=== PATIENT | male | born 1950 | race Caucasian/White ===

== ENCOUNTER 2016-10-06 10:27 | Emergency (ER) | payer MEDICARE, OTHER ==
[2016-10-06 10:38] VITALS: O2SAT 98
[2016-10-06] MEDS ORDERED: TORAdol 30 mg Injection IM ONE (10:48)
[2016-10-06] MEDS ORDERED: TORAdol 30 mg Injection ONE (10:51)
--- NOTE | 2016-10-06 10:53 | ERPHSYRPT ---
- History of Present Illness Time Seen by Provider: 10/06/16 10:49 Source: patient Exam Limitations: no limitations Patient Subjective Stated Complaint: fall at 1600 yesterday Triage Nursing Assessment: fell yesterday at 1600 and landed on rt shoulder on a log. has had bilat shoulder surgery in past. guarded movement to rt shoulder. no bruising noted. radial pulse present. limited rom but states has limited rom normally. increased pain with rom noted Physician History: 66 y/o male with history of rotator cuff surgery comes to the ER after falling and landing on a log on his right shoulder last night. Pt describes the pain as sharp, constant, 9/10, worse with movement and not relieved by hydrocodone. Pt denies any other injury to head, neck or any lost of consciousness. Occurred: yesterday Method of Injury: fell Quality: constant Severity of Pain-Max: severe Severity of Pain-Current: severe Extremities Pain Location: shoulder: right Modifying Factors: Improves With: movement Associated Symptoms: none Allergies/Adverse Reactions: No Known Drug Allergies Allergy (Verified 10/06/16 10:38) Home Medications: Alprazolam 2 mg PO HS 10/06/16 [History] Atorvastatin Calcium 20 mg PO HS 10/06/16 [History] Hydrocodone Bit/Acetaminophen [Hydrocodon-Acetaminophn 10-325] 1 each PO QID [History] Metformin HCl [Glucophage] 1,000 mg PO HS 10/06/16 [History] Metoprolol Tartrate 50 mg PO HS 10/06/16 [History] Omeprazole 20 mg PO HS 10/06/16 [History] Pioglitazone HCl [Actos] 15 mg PO HS 10/06/16 [History] Ranitidine HCl [Zantac] 300 mg PO HS 10/06/16 [History] Tamsulosin HCl 0.4 mg [Flomax 0.4 MG] 0.4 mg PO HS 10/06/16 [History] Hx Tetanus, Diphtheria Vaccination/Date Given: Yes Hx Influenza Vaccination/Date Given: Yes Hx Pneumococcal Vaccination/Date Given: No Immunizations Up to Date: Yes - Review of Systems Constitutional: No Fever, No Chills Eyes: No Symptoms Ears, Nose, & Throat: No Symptoms Respiratory: No Cough, No Dyspnea Cardiac: No Chest Pain, No Edema, No Syncope Abdominal/Gastrointestinal: No Abdominal Pain, No Nausea, No Vomiting, No Diarrhea Genitourinary Symptoms: No Dysuria Musculoskeletal: Arthralgias, Fall, Joint Pain, No Back Pain, No Neck Pain Skin: No Rash Neurological: No Dizziness, No Focal Weakness, No Sensory Changes Psychological: No Symptoms Endocrine: No Symptoms All Other Systems: Reviewed and Negative - Past Medical History Pertinent Past Medical History: Yes Neurological History: Peripheral Neuropathy Cardiac History: Other Respiratory History: No Pertinent History Endocrine Medical History: Diabetes Type II, Other Musculoskeletal History: Other Psycho-Social History: Anxiety Other Medical History: HEPATITIS C - CONTROLLED; HEART CATH; HEART; VIRUS HX; BILATERAL RTC REPAIR; 1ST MTP REPLACEMENT W/ 3 SUGERIES; LS-PINE FUSION; R KNEE ARTHROSCOPY. - Past Surgical History Past Surgical History: Yes Musculoskeletal: Orthopedic Surgery Other Surgical History: BILATERAL ROTOR CUFF, BACK, RIGHT FOOT, ANKLE - Social History Smoking Status: Never smoker Exposure to second hand smoke: No Drug Use: none Patient Lives Alone: Yes - Nursing Vital Signs Nursing Vital Signs: Initial Vital Signs Temperature 97.5 F 10/06/16 10:33 Pulse Rate 84 10/06/16 10:33 Respiratory Rate 18 10/06/16 10:33 Blood Pressure 153/80 10/06/16 10:33 O2 Sat by Pulse Oximetry 98 10/06/16 10:33 Pain Scale Pain Intensity 9 - Physical Exam General Appearance: mild distress, alert Eyes, Ears, Nose, Throat Exam: moist mucous membranes Neck Exam: non-tender, supple Cardiovascular/Respiratory Exam: chest non-tender, normal breath sounds, regular rate/rhythm, no respiratory distress Abdominal Exam: non-tender, No guarding Back Exam: normal inspection, No vertebral tenderness Shoulder Exam: bone tenderness, limited ROM, pain Elbow/Forearm Exam: normal inspection, non-tender, no evidence of injury Wrist Exam: normal inspection, non-tender, no evidence of injury Hand Exam: normal inspection, non-tender, no evidence of injury Neuro/Tendon Exam: normal sensation, normal motor functions Mental Status Exam: alert, oriented x 3, cooperative Skin Exam: normal color, warm, dry SpO2 Interpretation: normal SpO2: 98 Oxygen Delivery: Room Air - Course Nursing assessment & vital signs reviewed: Yes Ordered Tests: Active Orders 24 hr Category Date Time Status Sling Application STAT Care 10/06/16 11:19 Active SHOULDER Stat Exams 10/06/16 10:48 Completed Medication Summary Discontinued Medications Generic Name Dose Route Start Last Admin Trade Name Jaiden PRN Reason Stop Dose Admin Ketorolac Tromethamine 60 mg 10/06/16 10:48 10/06/16 10:54 Toradol 30 Mg Injection IM 10/06/16 10:49 60 mg STAT ONE Administration Ketorolac Tromethamine Confirm 10/06/16 10:51 Toradol 30 Mg Injection Administered 10/06/16 10:52 Dose 60 mg .ROUTE .STK-MED ONE - Progress Progress: improved Progress Note: 10/06/16 11:22 Pt feels better after receiving toradol 60mg IM X 1 dose. The shoulder x ray does not show any acute fracture or dislocation. Pt will be placed in a sling, will be given a script for toradol and will F/U with orthopedics, Dr Pedro. - Departure Time of Disposition: 11:24 Departure Disposition: Home Clinical Impression: Shoulder strain Qualifiers: Encounter type: initial encounter Laterality: right Qualified Code(s): S46.911A - Strain of unspecified muscle, fascia and tendon at shoulder and upper arm level, right arm, initial encounter Condition: Stable Critical Care Time: No Referrals: ANGELLA LICEA [Primary Care Provider] - BRYON PEDRO [ACTIVE STAFF] - Instructions: Shoulder Sprain Additional Instructions: Follow up with Dr Pedro by next week if you should continue to have shoulder pain. Prescriptions: Ketorolac Tromethamine [Toradol] 10 mg PO Q6HPRN PRN #20 tablet PRN Reason: Pain
--- NOTE | 2016-10-06 11:19 | XRAY ---
Indication: Pain following fall. Comparison: July 29, 2013. 3 views of the right shoulder again demonstrates minimal spurring of the distal clavicle inferiorly. No new/acute bony, articular, or soft tissue abnormalities.
[2016-10-06 11:44] VITALS: BP 130/78; PULSE 80
== END 2016-10-06 11:45 | disposition home or self-care (01) ==
LOC: ED 10:27
DX: S46.911A Strain of unspecified muscle, fascia and tendon at shoulder and upper arm level, right arm, initial encounter (principal); W01.198A Fall on same level from slipping, tripping and stumbling with subsequent striking against other object, initial encounter; M25.511 Pain in right shoulder; E11.9 Type 2 diabetes mellitus without complications; Z79.84 Long term (current) use of oral hypoglycemic drugs; Z79.899 Other long term (current) drug therapy
CPT/HCPCS: 73030; 96372; 99283; 99284; J1885

== ENCOUNTER 2017-01-01 08:34 | Day surgery (SDC) | payer MEDICARE, OTHER ==
--- NOTE | 2016-12-30 15:49 | HP ---
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 Last upper endoscopy ten years ago. He denies any dysphagia currently. He had some intermittent epigastric pain. He is taking some acid blockers. He does have family history of cancer of the stomach in his mother. He is in need of follow up upper endoscopy given history of Pak's in the past. PAST MEDICAL HISTORY: Diabetes, benign prostatic hypertrophy and melanoma in the past. PAST SURGICAL HISTORY: Right foot big toe surgery. Left and right rotator cuff surgery. Right knee surgery. Back surgery in the past. Upper endoscopy ten years ago. MEDICATIONS: Alprazolam, aspirin, Atorvastatin, chlorouracil topical cream, Glyburide, hydrocodone, lisinopril, metformin, Metoprolol, mupirocin ointment, omeprazole, pioglitazone tablets, Polymyxin B eye drops, ranitidine, Tamsulosin, triamcinolone cream, Voltaren gel. ALLERGIES: NKDA. FAMILY HISTORY: Lung cancer in his father. Mother had stomach cancer. Brother had heart disease. SOCIAL HISTORY: No smoking or alcohol abuse. REVIEW OF SYSTEMS: Twelve systems reviewed per admission assessment. No chest pain or palpitations other systems negative or noncontributory as above and per preadmission questionnaire. PHYSICAL EXAMINATION: GENERAL: No acute distress. HEENT: Sclerae nonicteric. NECK: No JVD. CHEST: Equal excursion, nonlabored breathing. CVS: Regular rate and rhythm. ABDOMEN: Soft. No peritoneal signs. EXTREMITIES: No significant edema. NEURO: Alert, moving extremities symmetrically. No gross motor deficits noted. IMPRESSION: History of Pak's, some intermittent epigastric pain or discomfort in need of follow up upper endoscopy for further evaluation. His last one was ten years ago according to the patient. Risks and benefits explained in detail including but not limited to bleeding or infection, small risk of bowel injury or perforation possibly requiring open procedure, small risk of missed or nondiagnosis or incomplete exam possibly requiring barium swallow, other studies or procedures, general risk of anesthesia or sedation, risk of missed or nondiagnosis. He understands and agrees to the planned procedure and will proceed with outpatient upper endoscopy possible biopsy as an outpatient.
[~2017-01-01 08:34] MED LIST: Lactated Ringers 1,000 ML IV SCH
[2017-01-01] MEDS ORDERED: DIPRIVAN 200 MG/20 ML IV ONE (08:35)
[2017-01-01] MEDS ORDERED: Ketamine HCl 50 MG/ML IV ONE (08:35)
[2017-01-01] MEDS ORDERED: Lactated Ringers 1,000 ML IV ONE (09:39)
[2017-01-01 13:36] VITALS: BP 122/76; PULSE 64; O2SAT 98
--- NOTE | 2017-01-02 09:23 | OP ---
SURGERY DATE/TIME: 01/01/2017 1028 PREOPERATIVE DIAGNOSES: 1) History of Pak's. 2) Epigastric pain. POSTOPERATIVE DIAGNOSES: 1) Very small hiatal hernia. 2) Mild gastritis. 3) Short segment distal gastroesophagitis versus Pak's esophagus path pending. PROCEDURES: 1) EGD with cold biopsy of antrum to evaluate for Helicobacter pylori. 2) Cold biopsy of distal esophagus to evaluate for Pak's. SURGEON: Dr. Jonatan Draper. ANESTHESIA: MAC. ESTIMATED BLOOD LOSS: Minimal. INDICATIONS: As noted above. Risks and benefits explained in detail and not limited to and consent obtained. DESCRIPTION OF PROCEDURE AND FINDINGS: The patient is taken to the endoscopy room. MAC anesthesia introduced. After official time out and no disagreement with planned procedure, a bite block positioned. Video gastroscope easily passed down the esophagus through the patent pylorus to the junction of the second and third portion of the duodenum. On withdrawal of the scope the duodenum, duodenal bulb grossly unremarkable. Back in the stomach he had some mild gastritis. No evidence of any ulcers or masses. A cold biopsy taken to evaluate for Helicobacter pylori. Good hemostasis noted. On retroflex there was a very small slight hiatal hernia on retroflex otherwise no signs of any large polyps, masses or obstructing lesions. The scope pulled back. The gastroesophageal junction noted to be about 35 cm. There was a short segment of 1 to 1.5 cm of a couple of fingerlets of patchy that seemed to be Pak's esophagus versus epigastric esophagitis. Cold biopsy taken 1 cm apart of these two different fingerlets up through the salmon pink mucosal area. Good hemostasis was noted. The remainder of the esophagus grossly unremarkable. A few tertiary contractions but no signs of any obvious masses or other mucosal lesions. The scope is withdrawn. The patient tolerated the procedure well. Findings discussed with the family out in the waiting area.
== END 2017-01-01 12:05 | disposition home or self-care (01) ==
LOC: SDC 08:34
PROVIDERS: ATTEND Surgery
PROC: 0DB38ZX Excision of Lower Esophagus, Via Natural or Artificial Opening Endoscopic, Diagnostic (ICD-10-PCS; principal; 2017-01-01)
PROC: 0DB78ZX Excision of Stomach, Pylorus, Via Natural or Artificial Opening Endoscopic, Diagnostic (ICD-10-PCS; 2017-01-01)
DX: K44.9 Diaphragmatic hernia without obstruction or gangrene (principal); K29.70 Gastritis, unspecified, without bleeding; K20.9 Esophagitis, unspecified; E11.9 Type 2 diabetes mellitus without complications; Z79.4 Long term (current) use of insulin; N40.0 Benign prostatic hyperplasia without lower urinary tract symptoms; Z85.820 Personal history of malignant melanoma of skin; Z80.0 Family history of malignant neoplasm of digestive organs; Z79.899 Other long term (current) drug therapy
CPT/HCPCS: 00740; 36415; 82962; 88305; J2704

== ENCOUNTER 2017-05-20 15:35 | Emergency (ER) | payer MEDICARE, OTHER ==
[2017-05-20] MEDS ORDERED: Lactated Ringers 1,000 ML IV ONE ×2 (16:02→16:10)
[2017-05-20] MEDS ORDERED: Adacel Vial IM ONE ×2 (16:03→16:09)
[2017-05-20] MEDS ORDERED: BACIGUENT PACKET TP ONE (16:03)
[2017-05-20] MEDS ORDERED: BACIGUENT PACKET ONE (16:10)
--- NOTE | 2017-05-20 16:12 | ERPHSYRPT ---
- History of Present Illness Time Seen by Provider: 05/20/17 15:54 Source: patient, family (son-in-law) Physician History: CC: high blood sugar Hx: 66 y/o patient of Dr Licea. He had foot surgery with cadaver bone graft in right great toe per Dr Cruz this week Sun. He is home. He has polyuria. He has been going to the bathroom frequently. He fell 3 times. Today he struck his head and has a scratch to the head as well as some neck pain. Sugar was over 500 and has not been less than 200 since his surgery. He is on lantus, formerly on Janumet. HE is taking half vicodin and xanax every 6 hours. No known fever but no thermometer. No vomiting or diarrhea. No chest pain or cough. Occasional dysuria. Allergies/Adverse Reactions: morphine Adverse Reaction (Severe, Verified 05/20/17 16:32) Home Medications: Alprazolam 2 mg PO TID 10/06/16 [History] Atorvastatin Calcium 20 mg PO HS 10/06/16 [History] Hydrocodone Bit/Acetaminophen [Hydrocodon-Acetaminophn 10-325] 1 each PO QID [History] Metoprolol Tartrate 50 mg PO HS 10/06/16 [History] Omeprazole 20 mg PO HS 10/06/16 [History] Pioglitazone HCl [Actos] 15 mg PO HS 10/06/16 [History] Ranitidine HCl [Zantac] 300 mg PO HS 10/06/16 [History] Tamsulosin HCl 0.4 mg [Flomax 0.4 MG] 0.4 mg PO HS 10/06/16 [History] Insulin Glargine [Lantus Insulin] 15 unit SQ DAILY 05/20/17 [History] Hx Tetanus, Diphtheria Vaccination/Date Given: Yes Hx Influenza Vaccination/Date Given: Yes Hx Pneumococcal Vaccination/Date Given: No - Review of Systems Constitutional: Fatigue, Malaise, Weakness, No Fever, No Chills Eyes: No Symptoms Ears, Nose, & Throat: No Symptoms Respiratory: No Cough, No Dyspnea Cardiac: No Chest Pain, No Syncope Abdominal/Gastrointestinal: No Abdominal Pain, No Nausea, No Vomiting, No Diarrhea Genitourinary Symptoms: Dysuria, Frequency, Hesitancy Musculoskeletal: Neck Pain, Fall (X3), No Back Pain Skin: No Rash Neurological: No Headache All Other Systems: Reviewed and Negative - Past Medical History Pertinent Past Medical History: Yes Neurological History: Peripheral Neuropathy ENT History: No Pertinent History Cardiac History: Other Respiratory History: No Pertinent History Endocrine Medical History: Diabetes Type II, Other Musculoskeletal History: Other GI Medical History: GERD History: No Pertinent History Psycho-Social History: Anxiety Male Reproductive Disorders: Prostate Problems Other Medical History: HEPATITIS C - CONTROLLED; HEART CATH; HEART; VIRUS HX; BILATERAL RTC REPAIR; 1ST MTP REPLACEMENT W/ 3 SUGERIES; LS-PINE FUSION; R KNEE ARTHROSCOPY. - Past Surgical History Past Surgical History: Yes Neuro Surgical History: No Pertinent History Cardiac: No Pertinent History Respiratory: No Pertinent History Gastrointestinal: No Pertinent History Genitourinary: No Pertinent History Musculoskeletal: Orthopedic Surgery Male Surgical History: No Pertinent History Other Surgical History: BILATERAL ROTOR CUFF, BACK, RIGHT FOOT, ANKLE - Social History Smoking Status: Never smoker Exposure to second hand smoke: No Drug Use: none Patient Lives Alone: Yes - Nursing Vital Signs Nursing Vital Signs: Initial Vital Signs Temperature 97.8 F 05/20/17 16:00 Pulse Rate 66 05/20/17 16:00 Respiratory Rate 14 05/20/17 16:00 Blood Pressure 108/86 05/20/17 16:00 O2 Sat by Pulse Oximetry 96 05/20/17 16:00 Pain Scale Pain Intensity 1 - Physical Exam General Appearance: alert Eye Exam: PERRL/EOMI, No scleral icterus Ears, Nose, Throat Exam: normal ENT inspection, dry mucous membranes Neck Exam: normal inspection, midline tenderness Respiratory Exam: crackles/rales (bases) Cardiovascular Exam: regular rate/rhythm Gastrointestinal/Abdomen Exam: soft, No tenderness, No distention Male Genitalia Exam: normal genitalia Back Exam: normal inspection, No vertebral tenderness Extremity Exam: other (dressing right foot with cryocuff. Ends of toes pink, no swelling or redness.) Neurologic Exam: alert, oriented x 3, cooperative, sensation nml, No motor deficits Skin Exam: warm, dry, No rash Procedures - Additional Procedures Progress: Limited transabdominal sono per ERMD for bladder volume. 235 ml urine in bladder. He promptly voided 100ml of that. No significant urine retention. There is pedunculated right sided hyperechoic lesion off bladder wall consistent with mass or polyp. Pt and family advised to have urology follow up for further investigation. - Course Nursing assessment & vital signs reviewed: Yes EKG Interpreted by Me: RATE (56), Sinus Krishan, NORMAL AXIS, NORMAL INTERVALS ( QTc 404), NORMAL QRS, NORMAL ST-T - CT Exams brain CT Interpretation: Negative, Tele-radiologist Report cervical CT Interpretation: Tele-radiologist Report, DJD, No Fracture, No Subluxation Ordered Tests: Active Orders 24 hr Category Date Time Status ACCUCHECK [Accucheck] STAT Care 05/20/17 18:21 Active Cervical Collar Application STAT Care 05/20/17 16:06 Active Clean Catch Urine Specimen STAT Care 05/20/17 16:02 Active EKG-ER Only STAT Care 05/20/17 16:02 Active IV Insertion STAT Care 05/20/17 16:02 Active Wound Care STAT Care 05/20/17 16:03 Active CERVICAL SPINE WO CONTRAST [CT] Stat Exams 05/20/17 16:01 Taken CHEST 1 VIEW (PORTABLE) Stat Exams 05/20/17 16:02 Taken HEAD WITHOUT CONTRAST [CT] Stat Exams 05/20/17 16:01 Taken CBC W DIFF Stat Lab 05/20/17 16:10 Completed CMP Stat Lab 05/20/17 16:10 Completed Glucose,Critical Care Urgent Lab 05/20/17 16:03 Completed Lactic Acid Stat Lab 05/20/17 16:02 Completed UA W/RFX UR CULTURE Stat Lab 05/20/17 17:14 Completed VENOUS BLOOD GAS Urgent Lab 05/20/17 16:03 Completed Medication Summary Discontinued Medications Generic Name Dose Route Start Last Admin Trade Name Freq PRN Reason Stop Dose Admin Bacitracin 0.9 gm 05/20/17 16:03 05/20/17 16:14 Baciguent Packet TP 05/20/17 16:04 1 gm STAT ONE Administration Bacitracin Confirm 05/20/17 16:10 Baciguent Packet Administered 05/20/17 16:11 Dose 1 gm .ROUTE .STK-MED ONE Diphtheria/Tetanus/Acell Pertussis 0.5 ml 05/20/17 16:03 05/20/17 16:14 Adacel Vial IM 05/20/17 16:04 0.5 ml .ONCE ONE Administration Diphtheria/Tetanus/Acell Pertussis Confirm 05/20/17 16:09 Adacel Vial Administered 05/20/17 16:10 Dose 0.5 ml IM .STK-MED ONE Lactated Ringer's 1,000 mls @ 999 mls/hr 05/20/17 16:02 05/20/17 16:13 Lactated Ringers IV 05/20/17 17:02 999 mls/hr .Q1H1M ONE Administration Lactated Ringer's Confirm 05/20/17 16:10 Lactated Ringers Administered 05/20/17 16:11 Dose 1,000 mls @ ud IV .STK-MED ONE Lab/Rad Data: Laboratory Result Diagrams 05/20/17 16:10 05/20/17 16:10 Laboratory Results 05/20/17 05/20/17 05/20/17 Range/Units 17:14 16:10 16:10 WBC 5.7 (4.0-10.5) K/mm3 RBC 4.72 (4.1-5.6) M/mm3 Hgb 13.2 (12.5-18.0) gm/dl Hct 40.9 L (42-50) % MCV 86.7 (78-100) fl MCH 28.0 (26-32) pg MCHC 32.3 (32-36) g/dl RDW 13.3 (11.5-14.0) % Plt Count 216 (150-450) K/mm3 MPV 9.6 H (6-9.5) fl Gran % 72.8 H (36.0-66.0) % Lymphocytes % 14.7 L (24.0-44.0) % Monocytes % 9.2 (0.0-12.0) % Eosinophils % 3.0 (0.00-5.0) % Basophils % 0.3 (0.0-0.4) % Basophils # 0.02 (0-0.4) VBG pH (7.32-7.42) VBG pCO2 at Pat Temp (42-55) mm/Hg VBG pO2 at Pat Temp (25-40) mm/Hg VBG HCO3 (22-28) meq/L VBG O2 Sat (Dagoberto) (95-100) VBG Base Excess (-2.0-2.0) VBG Hemoglobin VBG Carboxyhemoglobin (0.0-6.9) % T HGB POC Potassium (3.5-5.1) Glucose 373 H (70-110) Sodium 134 L (137-145) mmol/L Potassium 4.9 (3.5-5.1) mmol/L Chloride 95 L (98-107) mEq/L Carbon Dioxide 29 (22-30) mmol/L Anion Gap 15.3 H (5-15) MEQ/L BUN 25 H (9-20) mg/dl Creatinine 1.21 (0.66-1.25) mg/dl Estimated GFR > 60 ML/MIN Lactic Acid (0.4-2.0) Calcium 9.7 (8.4-10.2) mg/dL Total Bilirubin 1.20 (0.2-1.3) mg/d? AST 89 H (17-59) U/L ALT 322 H (0-50) U/L Alkaline Phosphatase 361 H (38-126) U/L Serum Total Protein 7.2 (6.3-8.2) mg/dl Albumin 4.0 (3.5-5.0) g/dl Ur Collection Type VOID Urine Color YELLOW (YELLOW) Urine Appearance CLEAR (CLEAR) Urine pH 5.0 (5-6) Ur Specific [place] 1.015 (1.005-1.025) Urine Protein NEGATIVE (Negative) Urine Ketones NEGATIVE (NEGATIVE) Urine Blood NEGATIVE (0-5) Maxwell/ul Urine Nitrite NEGATIVE (NEGATIVE) Urine Bilirubin NEGATIVE (NEGATIVE) Urine Urobilinogen NORMAL (0-1) mg/dL Ur Leukocyte Esterase NEGATIVE (NEGATIVE) Urine Culture Reflexed NO (NO) Urine Glucose 1000 (NEGATIVE) mg/dL Specimen Received 05/20/17 1715 05/20/17 05/20/17 Range/Units 16:03 16:02 WBC (4.0-10.5) K/mm3 RBC (4.1-5.6) M/mm3 Hgb (12.5-18.0) gm/dl Hct (42-50) % MCV (78-100) fl MCH (26-32) pg MCHC (32-36) g/dl RDW (11.5-14.0) % Plt Count (150-450) K/mm3 MPV (6-9.5) fl Gran % (36.0-66.0) % Lymphocytes % (24.0-44.0) % Monocytes % (0.0-12.0) % Eosinophils % (0.00-5.0) % Basophils % (0.0-0.4) % Basophils # (0-0.4) VBG pH 7.34 (7.32-7.42) VBG pCO2 at Pat Temp 62 H* (42-55) mm/Hg VBG pO2 at Pat Temp 28 (25-40) mm/Hg VBG HCO3 33.4 H* (22-28) meq/L VBG O2 Sat (Dagoberto) 59.6 L (95-100) VBG Base Excess 5.6 H (-2.0-2.0) VBG Hemoglobin 13.9 VBG Carboxyhemoglobin 1.7 (0.0-6.9) % T HGB POC Potassium 4.8 (3.5-5.1) Glucose 388 H (70-110) Sodium (137-145) mmol/L Potassium (3.5-5.1) mmol/L Chloride (98-107) mEq/L Carbon Dioxide (22-30) mmol/L Anion Gap (5-15) MEQ/L BUN (9-20) mg/dl Creatinine (0.66-1.25) mg/dl Estimated GFR ML/MIN Lactic Acid 1.1 (0.4-2.0) Calcium (8.4-10.2) mg/dL Total Bilirubin (0.2-1.3) mg/d? AST (17-59) U/L ALT (0-50) U/L Alkaline Phosphatase (38-126) U/L Serum Total Protein (6.3-8.2) mg/dl Albumin (3.5-5.0) g/dl Ur Collection Type Urine Color (YELLOW) Urine Appearance (CLEAR) Urine pH (5-6) Ur Specific [place] (1.005-1.025) Urine Protein (Negative) Urine Ketones (NEGATIVE) Urine Blood (0-5) Maxwell/ul Urine Nitrite (NEGATIVE) Urine Bilirubin (NEGATIVE) Urine Urobilinogen (0-1) mg/dL Ur Leukocyte Esterase (NEGATIVE) Urine Culture Reflexed (NO) Urine Glucose (NEGATIVE) mg/dL Specimen Received - Progress Progress Note: 05/20/17 18:47 Pt alert. Stable. Wants to go home. No sign of infection. Advised decreased xanax so he does not develop sleep apnea. Will Rx novolog for sliding scale sugar coverage. Will continue lantus. Son Sahil will stay with him tonite. Follow up advised. Counseled pt/family regarding: lab results, diagnosis, need for follow-up, rad results - Departure Time of Disposition: 18:49 Departure Disposition: Home Clinical Impression: Hyperglycemia due to type 2 diabetes mellitus, post op foot surgery, Elevated transaminase level, Mass of urinary bladder determined by ultrasound Condition: Stable Critical Care Time: No Referrals: ANGELLA LICEA [Primary Care Provider] - Instructions: Hyperglycemia, Adult (DC) Additional Instructions: Rx humalog pen to use with sliding scale. Continue lantus as already prescribed. Family to stay with you. You need to have bladder rechecked by Dr Dejesus your urologist. You need to have liver rechecked by Dr Karthik Licea. Call Dr Licea tomorrow for follow up. Return for problems or concerns. Notify Dr Cruz in Am. Decrease xanax. Prescriptions: Insulin Lispro [Humalog Kwikpen] 0 unit SQ UD #1 pen
[2017-05-20 16:21] LABS: BASOPHIL % 0.3 % (0.0-0.4); Basophil (Absolute #) 0.02 (0-0.4); Eosinophil (Absolute #) 0.17 (0-0.5); Granulocyte Absolute (ANC) 4.17 (1.4-6.9); Granulocytes % 72.8 % (36.0-66.0); Hematocrit 40.9 % (42-50); Hemoglobin 13.2 gm/dl (12.5-18.0); Lymphocyte (Absolute #) 0.84 (1.0-4.6); Lymphocytes % 14.7 % (24.0-44.0); Mean Cell Volume 86.7 fl (78-100); Mean Corpuscular Hgb Concent. 32.3 g/dl (32-36); Mean Platelet Volume 9.6 fl (6-9.5); Monocyte (Absolute #) 0.53 (0.0-1.3); Monocytes % 9.2 % (0.0-12.0); Platelet Count 216 K/mm3 (150-450); Red Blood Count 4.72 M/mm3 (4.1-5.6); Red Cell Distribution Width 13.3 % (11.5-14.0); White Blood Count 5.7 K/mm3 (4.0-10.5)
[2017-05-20 16:21] LABS: VBG BASE EXCESS 5.6 (-2.0-2.0); VBG CARBOXYHEMOGLOBIN 1.7 % T HGB (0.0-6.9); VBG HCO3- 33.4 meq/L (22-28); VBG HEMOGLOBIN 13.9; VBG O2 SATURATION 59.6 (95-100); VBG POTASSIUM 4.8 (3.5-5.1); VBG pH 7.34 (7.32-7.42)
[2017-05-20 16:35] LABS: ALKALINE PHOSPHATASE 361 U/L (38-126); ANION GAP 15.3 MEQ/L (5-15); BLOOD UREA NITROGEN 25 mg/dl (9-20); CHLORIDE 95 mEq/L (98-107); Calcium 9.7 mg/dL (8.4-10.2); Carbon Dioxide 29 mmol/L (22-30); Creatinine 1 1.21 mg/dl (0.66-1.25); Glucose 373 mg/dL (74-106); Potassium 4.9 mmol/L (3.5-5.1); SGOT/AST 89 U/L (17-59); SGPT/ALT 322 U/L (0-50); SODIUM 134 mmol/L (137-145); Total Protein 7.2 mg/dl (6.3-8.2)
[2017-05-20 17:20] LABS: Appearance CLEAR (CLEAR); Bilirubin NEGATIVE (NEGATIVE); Blood NEGATIVE Ery/ul (0-5); Glucose 1000 mg/dL (NEGATIVE); Ketones NEGATIVE (NEGATIVE); Leukocyte Esterase NEGATIVE (NEGATIVE); Nitrite NEGATIVE (NEGATIVE); Protein,Urine Dip NEGATIVE (Negative); Specific Gravity 1.015 (1.005-1.025); Urobilinogen NORMAL mg/dL (0-1)
[2017-05-20] MEDS ORDERED: NovoLOG Insulin SQ ONE (18:46)
[2017-05-20] MEDS ORDERED: NovoLOG Insulin ONE (18:50)
[2017-05-20 19:49] VITALS: BP 148/88; PULSE 88; O2SAT 99
--- NOTE | 2017-05-20 20:53 | XRAY ---
Indication: Status post fall/injury. Elevated blood sugar. Comparison: May 10, 2017. Portable chest again demonstrates normal heart and lungs. Bony thorax intact with again mild degenerative changes. No new/acute findings.
--- NOTE | 2017-05-20 21:01 | XRAY ---
Indication: Laceration following fall. Multiple contiguous axial images obtained through the head without contrast. Comparison: January 18, 2007. Mild motion artifact near the base of the brain. Ventriculosulcal pattern appears symmetric. No acute intracranial hemorrhage, abnormal extra-axial fluid collection, or mass effect. Fourth ventricle is midline without hydrocephalus. Bony calvarium intact. Visualized paranasal sinuses and mastoid air cells are clear. Impression: Motion artifact. No gross new/acute intracranial abnormalities. Comment: Preliminary interpretation was made by [facility]. No discrepancy. CTDI 50.14
--- NOTE | 2017-05-20 21:09 | XRAY ---
Indication: Pain following fall. Multiple contiguous axial images obtained through the cervical spine. Sagittal and coronal reformatted images obtained. Comparison: January 18, 2009. Axial images again negative for acute fracture, suspicious bone lesions, or spinal canal stenosis. Progressive worsening mild/moderate multilevel degenerative endplate spurring and bilateral degenerative facet hypertrophy. Sagittal and coronal reformatted images demonstrates normal alignment with worsening C3-C6 degenerative disc space loss. No acute compression fracture, subluxation, or jumped facet. Normal craniocervical junction. Visualized noncontrasted soft tissues demonstrates mild bilateral carotid calcifications. Lung apices clear. CT head reported separately. Impression: 1. Negative acute fracture/subluxation. 2. Progressive worsening multilevel degenerative changes. Comment: Preliminary interpretation was made by [facility]. No discrepancy. CTDI 112.70
== END 2017-05-20 19:51 | disposition home or self-care (01) ==
LOC: ED 15:35
DX: E11.65 Type 2 diabetes mellitus with hyperglycemia (principal); S00.91XA Abrasion of unspecified part of head, initial encounter; R74.0 Nonspecific elevation of levels of transaminase and lactic acid dehydrogenase [LDH]; M54.2 Cervicalgia; N32.89 Other specified disorders of bladder; Z79.4 Long term (current) use of insulin; Z79.899 Other long term (current) drug therapy; Z98.890 Other specified postprocedural states; W18.30XA Fall on same level, unspecified, initial encounter; Y92.009 Unspecified place in unspecified non-institutional (private) residence as the place of occurrence of the external cause
CPT/HCPCS: 36000; 36415; 70450; 71045; 72125; 80053; 81002; 82805; 82947; 82962; 83605; 85025; 90471; 90715; 93005; 96360; 96372; 99284; A9270-GY

== ENCOUNTER 2017-10-31 05:51 | Day surgery (SDC) | payer MEDICARE, OTHER ==
[2017-10-31] MEDS ORDERED: Ketamine HCl 50 MG/ML IJ ONE (05:52)
[2017-10-31] MEDS ORDERED: DIPRIVAN 200 MG/20 ML IV ONE (05:52)
[2017-10-31] MEDS ORDERED: Lactated Ringers 1,000 ML IV ONE (06:14)
[2017-10-31 07:01] VITALS: O2SAT 97
[2017-10-31] MEDS ORDERED: SUBLIMAZE 100 MCG/2 ML ONE (07:57)
--- NOTE | 2017-10-31 08:10 | OP ---
SURGERY DATE/TIME: 10/31/2017709 PREOPERATIVE DIAGNOSIS: Screening colonoscopy. POSTOPERATIVE DIAGNOSES: 1) Normal colon. 2) Poor bowel prep. PROCEDURE: Colonoscopy. SURGEON: Julio Vazquez M.D. ANESTHESIA: MAC by Luc Marks CRNA. ESTIMATED BLOOD LOSS: None. SPECIMENS: None. DESCRIPTION OF PROCEDURE: After informed written consent was obtained, the patient was taken to the endoscopy suite. He underwent monitored anesthesia and a digital rectal exam showed normal sphincter tone and no internal lesions. The scope was inserted into the rectum and sequentially the entire colonic mucosa was traversed. The level of cecum was reached and verified with direct visualization of ileocecal valve. Upon withdrawal there were no obvious mucosal abnormalities although there was semi-solid stool present in different areas throughout the entire length of the colon. Suction was used as much as possible to aid in viewing. Prior to withdrawal retroflexion was performed and showed no internal lesions. The scope was removed and the patient was transferred to the recovery room in excellent condition.
[2017-10-31 10:03] VITALS: BP 146/66; PULSE 60
== END 2017-10-31 09:03 | disposition home or self-care (01) ==
LOC: SDC 05:51
PROVIDERS: ATTEND Family Medicine
DX: Z12.11 Encounter for screening for malignant neoplasm of colon (principal); E11.9 Type 2 diabetes mellitus without complications; Z79.4 Long term (current) use of insulin; I10 Essential (primary) hypertension
CPT/HCPCS: 82962; 94250; J2704; J3010

== ENCOUNTER 2017-11-27 10:52 | Observation (INO) | payer MEDICARE, OTHER ==
--- NOTE | 2017-11-27 11:06 | ERPHSYRPT ---
- History of Present Illness Time Seen by Provider: 11/27/17 11:05 Source: patient, family Exam Limitations: no limitations Physician History: 67 y/o iddm white male with htn and h/o hep c presents with weakness and bilat upper and lower extremity cramping. family thinks possible dehydration as patient working out in yard all day yesterday with minimal oral intake. smokes marijuana occasionally. denies cp, denies soa, denies abd pain. pts heart rate runs in the 50's Timing/Duration: today Severity: moderate Modifying Factors: Improves With: movement (worsens), rest (improves) Associated Symptoms: nausea, loss of appetite, weakness, No vomiting, No abdominal pain, No shortness of breath, No diaphoresis, No cough, No chest pain , No headaches, No syncope Allergies/Adverse Reactions: No Known Drug Allergies Allergy (Verified 11/27/17 11:09) Home Medications: Metoprolol Tartrate 50 mg PO HS 10/06/16 [History] Tamsulosin HCl 0.4 mg [Flomax 0.4 MG] 0.4 mg PO HS 10/06/16 [History] Insulin Glargine [Lantus Insulin] 50 unit SQ DAILY 05/20/17 [History] Alprazolam 1 mg [Xanax 1 mg] 1 mg PO UD PRN 10/31/17 [History] Atorvastatin Calcium 20 mg PO HS 10/31/17 [History] Hydrocodone Bit/Acetaminophen [Hydrocodon-Acetaminophn 10-325] 1 each PO Q6HPRN PRN 10/31/17 [History] Insulin Aspart [NovoLOG Insulin] 15 unit SQ BID PRN PRN 10/31/17 [History] Lisinopril [Prinivil] 10 mg PO DAILY 10/31/17 [History] Omeprazole 20 MG [Prilosec 20 mg] 20 mg PO QHS 10/31/17 [History] Ranitidine HCl [Zantac] 300 mg PO DAILY 10/31/17 [History] Hx Tetanus, Diphtheria Vaccination/Date Given: Yes Hx Influenza Vaccination/Date Given: Yes Hx Pneumococcal Vaccination/Date Given: No - Review of Systems Constitutional: Fatigue, Lethargy, Weakness Eyes: No Symptoms, No Eye Pain Ears, Nose, & Throat: No Symptoms, No Ear Pain Respiratory: No Symptoms, No Cough, No Dyspnea, No Stridor, No Wheezing Cardiac: No Symptoms, No Chest Pain, No Palpitations, No Syncope Abdominal/Gastrointestinal: Nausea, No Abdominal Pain, No Vomiting, No Diarrhea Genitourinary Symptoms: No Symptoms, No Dysuria, No Frequency, No Hematuria Musculoskeletal: No Symptoms Skin: No Symptoms Neurological: Speech Changes Psychological: No Symptoms, No Alcohol Abuse, No Drug Abuse, No Anxiety, No Suicidal Ideations, No Homicidal Ideations Endocrine: No Symptoms, No Polyuria, No Polydipsia Hematologic/Lymphatic: No Symptoms Immunological/Allergic: No Symptoms All Other Systems: Reviewed and Negative - Past Medical History Pertinent Past Medical History: Yes Neurological History: No Pertinent History ENT History: No Pertinent History Cardiac History: High Cholesterol, Hypertension Respiratory History: No Pertinent History Endocrine Medical History: Diabetes Type II Musculoskeletal History: Osteoarthritis GI Medical History: GERD, Other History: No Pertinent History Psycho-Social History: Anxiety Male Reproductive Disorders: Prostate Problems Other Medical History: HEPATITIS C - CONTROLLED; HEART CATH; HEART; VIRUS HX; BILATERAL RTC REPAIR; 1ST MTP REPLACEMENT W/ 3 SUGERIES; LS-PINE FUSION; R KNEE ARTHROSCOPY. Barretts esophagus - Past Surgical History Past Surgical History: Yes Neuro Surgical History: No Pertinent History Cardiac: Cardiac Catheterization Respiratory: No Pertinent History Gastrointestinal: No Pertinent History, Other Genitourinary: No Pertinent History Musculoskeletal: Orthopedic Surgery Male Surgical History: No Pertinent History Other Surgical History: BILATERAL ROTOR CUFF, BACK-"fusion of lower back area", RIGHT Knee arthroscopy with "clean up",heart cath " 5 or more yrs ago". several liver biopsies. skin cancer removed from head - Social History Smoking Status: Never smoker Exposure to second hand smoke: No Drug Use: none Patient Lives Alone: Yes - Nursing Vital Signs Nursing Vital Signs: Initial Vital Signs Temperature 97.1 F 11/27/17 10:58 Pulse Rate 54 L 11/27/17 10:58 Respiratory Rate 14 11/27/17 10:58 Blood Pressure 112/61 11/27/17 10:58 O2 Sat by Pulse Oximetry 100 11/27/17 10:58 Pain Scale Pain Intensity 0 - Physical Exam General Appearance: moderate distress, alert Eye Exam: PERRL/EOMI Ears, Nose, Throat Exam: dry mucous membranes Neck Exam: normal inspection, non-tender, supple, full range of motion Respiratory Exam: normal breath sounds, lungs clear, airway intact, No chest tenderness, No respiratory distress, No accessory muscle use, No rhonchi, No wheezing, No stridor Cardiovascular Exam: bradycardia Gastrointestinal/Abdomen Exam: soft, normal bowel sounds, No tenderness, No guarding, No rebound Rectal Exam: not done Back Exam: normal inspection, normal range of motion, No CVA tenderness, No vertebral tenderness Extremity Exam: normal inspection, normal range of motion, pelvis stable Neurologic Exam: alert, oriented x 3, cooperative, panel installer II-XII nml as tested, other (moves all ext; slow speech which is different than normal), No facial droop Skin Exam: dry, other (cool dry skin) Lymphatic Exam: No adenopathy SpO2 Interpretation: normal Oxygen Delivery: Room Air - Course Nursing assessment & vital signs reviewed: Yes EKG Interpreted by Me: RATE (43), Sinus Krishan, NORMAL AXIS, NORMAL INTERVALS, NORMAL QRS, NORMAL ST-T Ordered Tests: Active Orders 24 hr Category Date Time Status EKG-ER Only STAT Care 11/27/17 11:11 Active IV Insertion STAT Care 11/27/17 11:09 Active Nursing [Miscellaneous Nursing Order] ROUTINE Care 11/27/17 15:13 Active Orthostatic Vital Signs STAT Care 11/27/17 11:09 Active HEAD WITHOUT CONTRAST [CT] Stat Exams 11/27/17 11:11 Completed CBC W DIFF Stat Lab 11/27/17 11:26 Completed CMP Stat Lab 11/27/17 11:26 Completed Lactic Acid Stat Lab 11/27/17 11:25 Completed TROPONIN Q3H Lab 11/27/17 11:26 Completed TROPONIN Q3H Lab 11/27/17 14:46 Received TROPONIN Q3H Lab 11/27/17 17:30 Ordered TROPONIN Q3H Lab 11/27/17 20:30 Ordered TROPONIN Q3H Lab 11/27/17 23:30 Ordered UA W/RFX UR CULTURE Stat Lab 11/27/17 13:00 Completed Transfer Order Routine Transfer 11/27/17 Ordered Medication Summary Generic Name Dose Route Start Last Admin Trade Name Freq PRN Reason Stop Dose Admin Dextrose/Sodium Chloride 1,000 mls @ 100 mls/hr 11/27/17 13:00 11/27/17 13:07 Dextrose 5%-Ns Iv Solution 1000 Ml IV 12/27/17 12:59 100 mls/hr .Q10H MARLO Administration Ondansetron HCl 4 mg 11/27/17 15:12 Zofran 4 Mg/2 Ml Vial IV 12/27/17 15:11 Q6H PRN PRN NAUSEA/VOMITING Discontinued Medications Generic Name Dose Route Start Last Admin Trade Name Freq PRN Reason Stop Dose Admin Hydrocodone Bitart/Acetaminophen 1 tab 11/27/17 12:30 11/27/17 12:33 Holmen 10/325 Mg Tablet PO 11/27/17 12:31 1 tab STAT ONE Administration Hydrocodone Bitart/Acetaminophen Confirm 11/27/17 12:32 Holmen 10/325 Mg Tablet Administered 11/27/17 12:33 Dose 1 tab .ROUTE .STK-MED ONE Dextrose 50 ml 11/27/17 12:06 11/27/17 12:11 D50w 50 Ml Abboject IV 11/27/17 12:07 50 ml STAT ONE Administration Dextrose Confirm 11/27/17 12:09 D50w 50 Ml Abboject Administered 11/27/17 12:10 Dose 50 ml IV .STK-MED ONE Sodium Chloride 1,000 mls @ 999 mls/hr 11/27/17 11:09 11/27/17 12:30 Sodium Chloride 0.9% 1000 Ml IV 11/27/17 12:09 Infused .Q1H1M STA Infusion Sodium Chloride Confirm 11/27/17 11:19 Sodium Chloride 0.9% 1000 Ml Administered 11/27/17 11:20 Dose 1,000 mls @ ud .ROUTE .STK-MED ONE Sodium Chloride 1,000 mls @ 999 mls/hr 11/27/17 11:55 11/27/17 13:19 Sodium Chloride 0.9% 1000 Ml IV 11/27/17 12:55 Infused .Q1H1M STA Infusion Sodium Chloride Confirm 11/27/17 12:10 Sodium Chloride 0.9% 1000 Ml Administered 11/27/17 12:11 Dose 1,000 mls @ ud .ROUTE .STK-MED ONE Ondansetron HCl 4 mg 11/27/17 11:09 11/27/17 11:20 Zofran 4 Mg/2 Ml Vial IV 11/27/17 11:10 4 mg STAT ONE Administration Ondansetron HCl Confirm 11/27/17 11:19 Zofran 4 Mg/2 Ml Vial Administered 11/27/17 11:20 Dose 4 mg .ROUTE .STK-MED ONE Lab/Rad Data: Laboratory Result Diagrams 11/27/17 11:26 11/27/17 11:26 Laboratory Results 11/27/17 11/27/17 11/27/17 Range/Units 13:00 11:26 11:26 WBC (4.0-10.5) K/mm3 RBC (4.1-5.6) M/mm3 Hgb (12.5-18.0) gm/dl Hct (42-50) % MCV (78-100) fl MCH (26-32) pg MCHC (32-36) g/dl RDW (11.5-14.0) % Plt Count (150-450) K/mm3 MPV (6-9.5) fl Gran % (36.0-66.0) % Eos # (Auto) (0-0.5) Absolute Lymphs (auto) (1.0-4.6) Absolute Monos (auto) (0.0-1.3) Lymphocytes % (24.0-44.0) % Monocytes % (0.0-12.0) % Eosinophils % (0.00-5.0) % Basophils % (0.0-0.4) % Absolute Granulocytes (1.4-6.9) Basophils # (0-0.4) Sodium 141 (137-145) mmol/L Potassium 4.0 (3.5-5.1) mmol/L Chloride 106 (98-107) mmol/L Carbon Dioxide 27 (22-30) mmol/L Anion Gap 12.5 (5-15) MEQ/L BUN 30 H (9-20) mg/dL Creatinine 1.09 (0.66-1.25) mg/dL Estimated GFR > 60.0 ML/MIN Glucose 42 L* (74-106) mg/dL Lactic Acid (0.4-2.0) Calcium 9.3 (8.4-10.2) mg/dL Total Bilirubin 0.90 (0.2-1.3) mg/dL AST 38 (17-59) U/L ALT 30 (0-50) U/L Alkaline Phosphatase 134 H (38-126) U/L Troponin I < 0.012 (0.000-0.034) ng/mL Serum Total Protein 6.8 (6.3-8.2) g/dL Albumin 3.9 (3.5-5.0) g/dL Ur Collection Type CLEAN CATCH Urine Color YELLOW (YELLOW) Urine Appearance CLEAR (CLEAR) Urine pH 5.0 (5-6) Ur Specific [place] 1.025 (1.005-1.025) Urine Protein NEGATIVE (Negative) Urine Ketones SMALL (NEGATIVE) Urine Blood NEGATIVE (0-5) Maxwell/ul Urine Nitrite NEGATIVE (NEGATIVE) Urine Bilirubin NEGATIVE (NEGATIVE) Urine Urobilinogen NORMAL (0-1) mg/dL Ur Leukocyte Esterase NEGATIVE (NEGATIVE) Urine Culture Reflexed NO (NO) Urine Glucose NEGATIVE (NEGATIVE) mg/dL 11/27/17 11/27/17 Range/Units 11:26 11:25 WBC 10.2 (4.0-10.5) K/mm3 RBC 4.67 (4.1-5.6) M/mm3 Hgb 13.2 (12.5-18.0) gm/dl Hct 40.4 L (42-50) % MCV 86.5 (78-100) fl MCH 28.3 (26-32) pg MCHC 32.7 (32-36) g/dl RDW 13.7 (11.5-14.0) % Plt Count 196 (150-450) K/mm3 MPV 9.8 H (6-9.5) fl Gran % 87.3 H (36.0-66.0) % Eos # (Auto) 0.03 (0-0.5) Absolute Lymphs (auto) 0.76 L (1.0-4.6) Absolute Monos (auto) 0.49 (0.0-1.3) Lymphocytes % 7.5 L (24.0-44.0) % Monocytes % 4.8 (0.0-12.0) % Eosinophils % 0.3 (0.00-5.0) % Basophils % 0.1 (0.0-0.4) % Absolute Granulocytes 8.91 H (1.4-6.9) Basophils # 0.01 (0-0.4) Sodium (137-145) mmol/L Potassium (3.5-5.1) mmol/L Chloride (98-107) mmol/L Carbon Dioxide (22-30) mmol/L Anion Gap (5-15) MEQ/L BUN (9-20) mg/dL Creatinine (0.66-1.25) mg/dL Estimated GFR ML/MIN Glucose (74-106) mg/dL Lactic Acid 1.0 (0.4-2.0) Calcium (8.4-10.2) mg/dL Total Bilirubin (0.2-1.3) mg/dL AST (17-59) U/L ALT (0-50) U/L Alkaline Phosphatase (38-126) U/L Troponin I (0.000-0.034) ng/mL Serum Total Protein (6.3-8.2) g/dL Albumin (3.5-5.0) g/dL Ur Collection Type Urine Color (YELLOW) Urine Appearance (CLEAR) Urine pH (5-6) Ur Specific [place] (1.005-1.025) Urine Protein (Negative) Urine Ketones (NEGATIVE) Urine Blood (0-5) Maxwell/ul Urine Nitrite (NEGATIVE) Urine Bilirubin (NEGATIVE) Urine Urobilinogen (0-1) mg/dL Ur Leukocyte Esterase (NEGATIVE) Urine Culture Reflexed (NO) Urine Glucose (NEGATIVE) mg/dL - Progress Progress: improved, re-examined Progress Note: 11/27/17 14:[address] zhang. i reviewed pt hx, condition, labs, ekg and xray results with her. she is ok to admit as long as cardiology is on board and there is a way for telemedicine/cardiology to be monitoring him if he stays. i will call pts manager family to formulate a plan. 11/27/17 14:37 spoke with pts manager family Dr. Flores. i reviewed pt hx, condition, labs, ekg, and ct scan results. dr. flores feels this is a function of his metoprolol. observe here, stop metoprolol and call him if concerns. 11/27/17 15:00 pt hungry. feeling better. spoke with dr. zhang at 1447. she accepts him for placement in observation telemetry. she is aware of no telecardiology. she is also aware dr. flores is ok with admitting here at [facility] and to call him if any issues. Discussed with : Loi Em Counseled pt/family regarding: lab results, diagnosis, need for follow-up, rad results - Departure Time of Disposition: 15:04 Departure Disposition: Observation Clinical Impression: Bradycardia, Hypoglycemia, Dehydration Condition: Stable Critical Care Time: Yes Critical Care Time(excluding separately billable procedures): 30-74 minutes Referrals: ANGELLA LICEA [Primary Care Provider] -
[2017-11-27] MEDS ORDERED: Sodium Chloride 0.9% 1000 ML 1,000 ML IV STA ×2 (11:09→11:55)
[2017-11-27] MEDS ORDERED: Zofran 4 MG/2 ML VIAL IV ONE (11:09)
[2017-11-27] MEDS ORDERED: Zofran 4 MG/2 ML VIAL ONE (11:19)
[2017-11-27] MEDS ORDERED: Sodium Chloride 0.9% 1000 ML 1,000 ML ONE ×2 (11:19→12:10)
[2017-11-27 11:41] LABS: BASOPHIL % 0.1 % (0.0-0.4); Basophil (Absolute #) 0.01 (0-0.4); Eosinophil % 0.3 % (0.00-5.0); Eosinophil (Absolute #) 0.03 (0-0.5); Granulocyte Absolute (ANC) 8.91 (1.4-6.9); Granulocytes % 87.3 % (36.0-66.0); Hematocrit 40.4 % (42-50); Hemoglobin 13.2 gm/dl (12.5-18.0); Lymphocyte (Absolute #) 0.76 (1.0-4.6); Lymphocytes % 7.5 % (24.0-44.0); Mean Cell Volume 86.5 fl (78-100); Mean Corpuscular Hemoglobin 28.3 pg (26-32); Mean Corpuscular Hgb Concent. 32.7 g/dl (32-36); Mean Platelet Volume 9.8 fl (6-9.5); Monocyte (Absolute #) 0.49 (0.0-1.3); Monocytes % 4.8 % (0.0-12.0); Platelet Count 196 K/mm3 (150-450); Red Blood Count 4.67 M/mm3 (4.1-5.6); Red Cell Distribution Width 13.7 % (11.5-14.0); White Blood Count 10.2 K/mm3 (4.0-10.5)
[2017-11-27 11:56] LABS: ALBUMIN 3.9 g/dL (3.5-5.0); ALKALINE PHOSPHATASE 134 U/L (38-126); ANION GAP 12.5 MEQ/L (5-15); BLOOD UREA NITROGEN 30 mg/dL (9-20); CHLORIDE 106 mmol/L (98-107); Calcium 9.3 mg/dL (8.4-10.2); Carbon Dioxide 27 mmol/L (22-30); Creatinine 1 1.09 mg/dL (0.66-1.25); SGOT/AST 38 U/L (17-59); SGPT/ALT 30 U/L (0-50); SODIUM 141 mmol/L (137-145); Total Protein 6.8 g/dL (6.3-8.2)
[2017-11-27 12:04] LABS: Glucose 42 mg/dL (74-106)
[2017-11-27] MEDS ORDERED: D50W 50 ml Abboject IV ONE ×2 (12:06→12:09)
--- NOTE | 2017-11-27 12:10 | XRAY ---
Indication: Confusion. Multiple contiguous axial images obtained through the head without contrast. Comparison: May 20, 2017. Again normal appearing brain parenchyma, ventricles, and bony calvarium. Visualized paranasal sinuses and mastoid air cells are clear. Impression: Stable normal CT head without contrast exam. CT DI 67.99
[2017-11-27] MEDS ORDERED: Norco 10/325 MG Tablet PO ONE (12:30)
[2017-11-27] MEDS ORDERED: Norco 10/325 MG Tablet ONE (12:32)
[2017-11-27] MEDS ORDERED: Dextrose 5%-NS IV Solution 1000 ML 1,000 ML IV SCH (13:00)
[2017-11-27] MEDS ORDERED: Dextrose 5%-NS IV Solution 1000 ML 1,000 ML IV ONE (13:07)
[2017-11-27 13:26] LABS: Appearance CLEAR (CLEAR); Specific Gravity 1.025 (1.005-1.025)
[2017-11-27 13:27] LABS: Glucose NEGATIVE (NEGATIVE); Ketones SMALL (NEGATIVE); Leukocyte Esterase NEGATIVE (NEGATIVE); Nitrite NEGATIVE (NEGATIVE); Protein,Urine Dip NEGATIVE (Negative)
[2017-11-27 13:28] LABS: Bilirubin NEGATIVE (NEGATIVE); Blood NEGATIVE Ery/ul (0-5); Urobilinogen NORMAL mg/dL (0-1)
[2017-11-27] MEDS ORDERED: Zofran 4 MG/2 ML VIAL IV PRN (15:12)
[2017-11-27] MEDS ORDERED: TYLENOL 325 MG PO PRN (16:20)
[2017-11-27] MEDS ORDERED: NovoLIN R SQ PRN (16:20)
[2017-11-27] MEDS ORDERED: NovoLOG Insulin SQ PRN (16:52)
[2017-11-27] MEDS: Dextrose 5% -0.45 NaCl 1000 ML 1,000 ML IV SCH (20:38)
[2017-11-27 21:13] LABS: Amphetamine,Urine POSITIVE (NEGATIVE); Barbiturate,Urine NEGATIVE (NEGATIVE); Benzodiazepine,Urine NEGATIVE (NEGATIVE); Methadone,Urine NEGATIVE (NEGATIVE); Opiate,Urine POSITIVE (NEGATIVE); PCP,Urine NEGATIVE (NEGATIVE); THC,Urine NEGATIVE (NEGATIVE)
[2017-11-27 21:18] LABS: Cocaine,Urine NEGATIVE (NEGATIVE)
[2017-11-27] MEDS ORDERED: Flomax 0.4 MG PO SCH (22:00)
[2017-11-27] MEDS ORDERED: Protonix 40MG Tablet PO SCH (22:00)
[2017-11-27] MEDS ORDERED: Lopressor 50 MG PO SCH (22:00)
[2017-11-27] MEDS ORDERED: Norco 10/325 MG Tablet PO PRN (22:00)
[2017-11-27] MEDS ORDERED: Pepcid 20 MG PO SCH (22:00)
[2017-11-27] MEDS ORDERED: BABY ASPIRIN 81 MG CHEW PO SCH (22:00)
[2017-11-27] MEDS ORDERED: LIPITOR 40MG PO SCH (22:00)
[2017-11-27] MEDS ORDERED: Zestril 10 MG PO SCH (22:00)
[2017-11-27] MEDS ORDERED: XANAX 1 MG PO PRN (22:00)
[2017-11-27] MEDS ORDERED: ECOTRIN 81 MG PO ONE (22:13)
[2017-11-27] MEDS ORDERED: Protonix 20MG Tablet PO ONE (22:13)
[2017-11-27] MEDS ORDERED: Protonix 40MG Tablet ONE (22:50)
[2017-11-27] MEDS ORDERED: ZOCOR 20MG PO SCH (23:55)
[2017-11-28 05:44] LABS: BASOPHIL % 0.2 % (0.0-0.4); Basophil (Absolute #) 0.01 (0-0.4); Eosinophil % 2.3 % (0.00-5.0); Eosinophil (Absolute #) 0.15 (0-0.5); Granulocyte Absolute (ANC) 3.96 (1.4-6.9); Granulocytes % 61.2 % (36.0-66.0); Hematocrit 35.5 % (42-50); Hemoglobin 11.5 gm/dl (12.5-18.0); Lymphocytes % 27.8 % (24.0-44.0); Mean Cell Volume 87.2 fl (78-100); Mean Corpuscular Hgb Concent. 32.4 g/dl (32-36); Mean Platelet Volume 9.7 fl (6-9.5); Monocyte (Absolute #) 0.55 (0.0-1.3); Monocytes % 8.5 % (0.0-12.0); Platelet Count 185 K/mm3 (150-450); Red Blood Count 4.07 M/mm3 (4.1-5.6); Red Cell Distribution Width 13.7 % (11.5-14.0); White Blood Count 6.5 K/mm3 (4.0-10.5)
[2017-11-28 05:50] LABS: Mean Corpuscular Hemoglobin 28.2 pg (26-32)
[2017-11-28 05:56] LABS: ALBUMIN 2.9 g/dL (3.5-5.0); ALKALINE PHOSPHATASE 96 U/L (38-126); ANION GAP 9.5 MEQ/L (5-15); BLOOD UREA NITROGEN 21 mg/dL (9-20); CHLORIDE 106 mmol/L (98-107); Calcium 8.5 mg/dL (8.4-10.2); Carbon Dioxide 27 mmol/L (22-30); Creatinine 1 1.02 mg/dL (0.66-1.25); Glucose 94 mg/dL (74-106); Potassium 4.3 mmol/L (3.5-5.1); SGOT/AST 34 U/L (17-59); SGPT/ALT 24 U/L (0-50); SODIUM 139 mmol/L (137-145); Total Protein 5.4 g/dL (6.3-8.2)
[2017-11-28] MEDS: Dextrose 5% -0.45 NaCl 1000 ML 1,000 ML IV SCH (06:16)
[2017-11-28 06:35] LABS: Risk Ratio 2.5
--- NOTE | 2017-11-28 07:55 | HP ---
HISTORY OF PRESENT ILLNESS: This is a 67 year-old patient of Dr. Arellano who presented to the emergency department. He along with his son and his give the history. He reports this morning he passed out and lost consciousness. He is not sure exactly what time this happened. His girlfriend was with him but he thinks that he laid on the floor for about an hour. He reports he had taken his long-acting insulin in the morning before this happened. He reports that he usually takes his metoprolol in the evening. He denies any chest pain, no palpitations, no shortness of breath, no abdominal pain. He denies having had any fever or feeling sick. He reports he worked outside all day yesterday but that is not unusual for him. He has seen Dr. 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 He reports he sees him frequently. He reports now he just feels tired. He denies any weakness in his arms or legs although he stated he had some this morning when he passed out. He reports he has pain in his right shoulder chronically and he plans to have a surgery on this upcoming in January. REVIEW OF SYSTEMS: As stated in the history of present illness. PAST MEDICAL HISTORY: Diabetes mellitus type 2. Cardiomyopathy. Hepatitis C. PAST SURGICAL HISTORY: He reports multiple surgeries on his right ankle. Rotator cuff surgery, back surgery. Skin cancer surgery on the back of his head. Right knee arthroscopy. MEDICATIONS: Please see the medication reconciliation list. ALLERGIES: NKDA. SOCIAL HISTORY: He reports occasionally smoking marijuana. He drinks maybe one beer a week. No meth or cocaine. He lives alone but his girlfriend visits sometimes. FAMILY HISTORY: His father lived to be 92 and of old age. His mother lived to be in her 80's and had stomach cancer. PHYSICAL EXAMINATION: VITAL SIGNS: Temperature current 98.3F, temperature max 98.3F, heart rate 39 to 50, respiratory rate 16 to 18, blood pressure 110 to 138 over 56 to 74, weight 65.7 kg. Oxygen saturation 98 to 99% on room air. GENERAL: The patient is a pleasant talkative man lying in bed in no acute distress. CVS: He is bradycardic. No murmurs, gallops or rubs are appreciated. CHEST: Clear to auscultation bilaterally. No crackles or wheezes. ABDOMEN: Soft, nontender, nondistended with normal bowel sounds. EXTREMITIES: No clubbing, cyanosis or edema. Right ankle with some bony abnormality. He has a well healed scar on the back of his head and also his right big toe. LABORATORY DATA AND TESTS: CBC within normal limits. CMP in the emergency room with glucose of 42. His current Accu-Chek is 151. UA negative. Head CT was read as stable, normal head CT without contrast. EKG with sinus bradycardia with no ST or T-wave changes with heart rate of 43. ASSESSMENT AND PLAN: 1) SYNCOPE: Will continue with telemetry and serial troponins. I asked Dr. Em to see him. Will hold his metoprolol and will see if he has had a recent cardiac echo with Dr. Em's office and if not we will order cardiac echo. Will plan to check his fasting lipid profile in the a.m. We may consider an EEG if no other etiology is found. However the bradycardia could have caused the problem and will see how his heart rate looks in the morning. 2) HYPOGLYCEMIA: Most likely related to the insulin for his diabetes. Will hold all of his regular insulin and oral hypoglycemic and just use a low dose sliding scale as needed. He received Antabuse 50 mg in the emergency room and has D5 in his fluids now and will continue with this at this time. 3) DIABETES MELLITUS TYPE 2: Will check hemoglobin A1C and continue with close monitoring of his Accu-Chek's before meals and at bedtime. 4) HISTORY OF VIRAL CARDIOMYOPATHY: Will continue with close observation. Again, I asked Dr. Em to see the patient.
--- NOTE | 2017-11-28 08:45 | PCM.NOTE ---
Date and Time: 11/28/17 0840 Subjective Assessment: Patient denies chest pain or shortness of breath or dizziness or lightheadedness. He states he has not yet been up around the room yet. 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 He denied using meth the morning of his presentation or the night before. He denies needing help to quit and states he doesn't feel like he is addicted. A note from Dr. Em was sent and his only diagnosis is hypertension on this. - Review of Systems Constitutional: No Symptoms Eyes: No Symptoms Ears, Nose, & Throat: No Symptoms Respiratory: No Symptoms Cardiac: No Symptoms Abdominal/Gastrointestinal: No Symptoms Genitourinary Symptoms: No Symptoms Musculoskeletal: Myalgias Skin: No Symptoms Objective Exam General Appearance: no apparent distress, alert Neurologic Exam: alert, cooperative, normal mood/affect Skin Exam: normal color, warm, dry Respiratory Exam: normal breath sounds, lungs clear, No crackles/rales, No rhonchi, No wheezing Cardiovascular Exam: regular rate/rhythm, normal heart sounds, No murmur, No friction rub, No gallop Gastrointestinal/Abdomen Exam: soft, normal bowel sounds, No tenderness, No distention, No mass Extremity Exam: other (no c/c/e) OBJECTIVE DATA Vital Signs: Vital Signs - 24 hr Temp Pulse Resp BP Pulse Ox 11/28/17 07:06 98 F 69 18 114/54 93 L 11/28/17 04:00 98.0 F 69 20 106/53 94 L 11/27/17 23:37 98.2 F 60 20 116/66 97 11/27/17 20:00 98.0 F 57 L 18 148/69 98 11/27/17 17:11 95.7 F 47 L 16 140/63 99 11/27/17 15:41 98.0 F 39 L 16 138/73 98 11/27/17 13:36 98.0 F 40 L 16 119/74 99 11/27/17 12:27 50 L 16 110/64 98 11/27/17 11:47 46 L 18 113/56 98 11/27/17 10:58 97.1 F 54 L 14 112/61 100 Pain Assessment - Last Documented Pain Intensity 5 Pain Scale Used [facility] Intake and Output: Intake & Output 11/26/17 11/27/17 11/28/17 11/29/17 06:59 06:59 06:59 06:59 Intake Total 880 Output Total 2400 Balance -1520 Weight 76.8 kg Lab Results: Accuchecks Date 11/28/17 Date 11/27/17 Time 07:30 Time 22:00 Accucheck Value: 115 Accucheck Value: 188 Accucheck Value: 194 Accucheck Value: 151 Lab Results-Last 24 Hours 11/27/17 11/27/17 11/27/17 Range/Units 11:25 11:26 11:26 WBC 10.2 (4.0-10.5) K/mm3 RBC 4.67 (4.1-5.6) M/mm3 Hgb 13.2 (12.5-18.0) gm/dl Hct 40.4 L (42-50) % MCV 86.5 (78-100) fl MCH 28.3 (26-32) pg MCHC 32.7 (32-36) g/dl RDW 13.7 (11.5-14.0) % Plt Count 196 (150-450) K/mm3 MPV 9.8 H (6-9.5) fl Gran % 87.3 H (36.0-66.0) % Eos # (Auto) 0.03 (0-0.5) Absolute Lymphs (auto) 0.76 L (1.0-4.6) Absolute Monos (auto) 0.49 (0.0-1.3) Lymphocytes % 7.5 L (24.0-44.0) % Monocytes % 4.8 (0.0-12.0) % Eosinophils % 0.3 (0.00-5.0) % Basophils % 0.1 (0.0-0.4) % Absolute Granulocytes 8.91 H (1.4-6.9) Basophils # 0.01 (0-0.4) Sodium 141 (137-145) mmol/L Potassium 4.0 (3.5-5.1) mmol/L Chloride 106 (98-107) mmol/L Carbon Dioxide 27 (22-30) mmol/L Anion Gap 12.5 (5-15) MEQ/L BUN 30 H (9-20) mg/dL Creatinine 1.09 (0.66-1.25) mg/dL Estimated GFR > 60.0 ML/MIN Glucose 42 L* (74-106) mg/dL Hemoglobin A1c (4.5-6.0) % Lactic Acid 1.0 (0.4-2.0) Calcium 9.3 (8.4-10.2) mg/dL Total Bilirubin 0.90 (0.2-1.3) mg/dL AST 38 (17-59) U/L ALT 30 (0-50) U/L Alkaline Phosphatase 134 H (38-126) U/L Creatine Kinase (55-170) U/L Troponin I (0.000-0.034) ng/mL Serum Total Protein 6.8 (6.3-8.2) g/dL Albumin 3.9 (3.5-5.0) g/dL Triglycerides (30-150) mg/dL Cholesterol (50-200) mg/dL LDL Cholesterol (30-100) mg/dL HDL Cholesterol (40-60) mg/dL Heart Disease Risk Ratio TSH 3rd Generation (0.47-4.68) mIU/L Ur Collection Type Urine Color (YELLOW) Urine Appearance (CLEAR) Urine pH (5-6) Ur Specific [place] (1.005-1.025) Urine Protein (Negative) Urine Ketones (NEGATIVE) Urine Blood (0-5) Maxwell/ul Urine Nitrite (NEGATIVE) Urine Bilirubin (NEGATIVE) Urine Urobilinogen (0-1) mg/dL Ur Leukocyte Esterase (NEGATIVE) Urine Culture Reflexed (NO) Urine Glucose (NEGATIVE) mg/dL Urine Opiates Level (NEGATIVE) Ur Methadone (NEGATIVE) Urine Barbiturates (NEGATIVE) Ur Phencyclidine (PCP) (NEGATIVE) Urine Amphetamine (NEGATIVE) U Benzodiazepine Level (NEGATIVE) Urine Cocaine (NEGATIVE) Urine Marijuana (THC) (NEGATIVE) 11/27/17 11/27/17 11/27/17 Range/Units 11:26 13:00 14:46 WBC (4.0-10.5) K/mm3 RBC (4.1-5.6) M/mm3 Hgb (12.5-18.0) gm/dl Hct (42-50) % MCV (78-100) fl MCH (26-32) pg MCHC (32-36) g/dl RDW (11.5-14.0) % Plt Count (150-450) K/mm3 MPV (6-9.5) fl Gran % (36.0-66.0) % Eos # (Auto) (0-0.5) Absolute Lymphs (auto) (1.0-4.6) Absolute Monos (auto) (0.0-1.3) Lymphocytes % (24.0-44.0) % Monocytes % (0.0-12.0) % Eosinophils % (0.00-5.0) % Basophils % (0.0-0.4) % Absolute Granulocytes (1.4-6.9) Basophils # (0-0.4) Sodium (137-145) mmol/L Potassium (3.5-5.1) mmol/L Chloride (98-107) mmol/L Carbon Dioxide (22-30) mmol/L Anion Gap (5-15) MEQ/L BUN (9-20) mg/dL Creatinine (0.66-1.25) mg/dL Estimated GFR ML/MIN Glucose (74-106) mg/dL Hemoglobin A1c (4.5-6.0) % Lactic Acid (0.4-2.0) Calcium (8.4-10.2) mg/dL Total Bilirubin (0.2-1.3) mg/dL AST (17-59) U/L ALT (0-50) U/L Alkaline Phosphatase (38-126) U/L Creatine Kinase (55-170) U/L Troponin I < 0.012 < 0.012 (0.000-0.034) ng/mL Serum Total Protein (6.3-8.2) g/dL Albumin (3.5-5.0) g/dL Triglycerides (30-150) mg/dL Cholesterol (50-200) mg/dL LDL Cholesterol (30-100) mg/dL HDL Cholesterol (40-60) mg/dL Heart Disease Risk Ratio TSH 3rd Generation (0.47-4.68) mIU/L Ur Collection Type CLEAN CATCH Urine Color YELLOW (YELLOW) Urine Appearance CLEAR (CLEAR) Urine pH 5.0 (5-6) Ur Specific [place] 1.025 (1.005-1.025) Urine Protein NEGATIVE (Negative) Urine Ketones SMALL (NEGATIVE) Urine Blood NEGATIVE (0-5) Maxwell/ul Urine Nitrite NEGATIVE (NEGATIVE) Urine Bilirubin NEGATIVE (NEGATIVE) Urine Urobilinogen NORMAL (0-1) mg/dL Ur Leukocyte Esterase NEGATIVE (NEGATIVE) Urine Culture Reflexed NO (NO) Urine Glucose NEGATIVE (NEGATIVE) mg/dL Urine Opiates Level (NEGATIVE) Ur Methadone (NEGATIVE) Urine Barbiturates (NEGATIVE) Ur Phencyclidine (PCP) (NEGATIVE) Urine Amphetamine (NEGATIVE) U Benzodiazepine Level (NEGATIVE) Urine Cocaine (NEGATIVE) Urine Marijuana (THC) (NEGATIVE) 11/27/17 11/27/17 11/27/17 Range/Units 18:19 18:19 18:19 WBC (4.0-10.5) K/mm3 RBC (4.1-5.6) M/mm3 Hgb (12.5-18.0) gm/dl Hct (42-50) % MCV (78-100) fl MCH (26-32) pg MCHC (32-36) g/dl RDW (11.5-14.0) % Plt Count (150-450) K/mm3 MPV (6-9.5) fl Gran % (36.0-66.0) % Eos # (Auto) (0-0.5) Absolute Lymphs (auto) (1.0-4.6) Absolute Monos (auto) (0.0-1.3) Lymphocytes % (24.0-44.0) % Monocytes % (0.0-12.0) % Eosinophils % (0.00-5.0) % Basophils % (0.0-0.4) % Absolute Granulocytes (1.4-6.9) Basophils # (0-0.4) Sodium (137-145) mmol/L Potassium (3.5-5.1) mmol/L Chloride (98-107) mmol/L Carbon Dioxide (22-30) mmol/L Anion Gap (5-15) MEQ/L BUN (9-20) mg/dL Creatinine (0.66-1.25) mg/dL Estimated GFR ML/MIN Glucose (74-106) mg/dL Hemoglobin A1c (4.5-6.0) % Lactic Acid (0.4-2.0) Calcium (8.4-10.2) mg/dL Total Bilirubin (0.2-1.3) mg/dL AST (17-59) U/L ALT (0-50) U/L Alkaline Phosphatase (38-126) U/L Creatine Kinase 876 H (55-170) U/L Troponin I < 0.012 (0.000-0.034) ng/mL Serum Total Protein (6.3-8.2) g/dL Albumin (3.5-5.0) g/dL Triglycerides (30-150) mg/dL Cholesterol (50-200) mg/dL LDL Cholesterol (30-100) mg/dL HDL Cholesterol (40-60) mg/dL Heart Disease Risk Ratio TSH 3rd Generation 1.060 (0.47-4.68) mIU/L Ur Collection Type Urine Color (YELLOW) Urine Appearance (CLEAR) Urine pH (5-6) Ur Specific [place] (1.005-1.025) Urine Protein (Negative) Urine Ketones (NEGATIVE) Urine Blood (0-5) Maxwell/ul Urine Nitrite (NEGATIVE) Urine Bilirubin (NEGATIVE) Urine Urobilinogen (0-1) mg/dL Ur Leukocyte Esterase (NEGATIVE) Urine Culture Reflexed (NO) Urine Glucose (NEGATIVE) mg/dL Urine Opiates Level (NEGATIVE) Ur Methadone (NEGATIVE) Urine Barbiturates (NEGATIVE) Ur Phencyclidine (PCP) (NEGATIVE) Urine Amphetamine (NEGATIVE) U Benzodiazepine Level (NEGATIVE) Urine Cocaine (NEGATIVE) Urine Marijuana (THC) (NEGATIVE) 11/27/17 11/27/17 11/27/17 Range/Units 18:19 20:45 20:51 WBC (4.0-10.5) K/mm3 RBC (4.1-5.6) M/mm3 Hgb (12.5-18.0) gm/dl Hct (42-50) % MCV (78-100) fl MCH (26-32) pg MCHC (32-36) g/dl RDW (11.5-14.0) % Plt Count (150-450) K/mm3 MPV (6-9.5) fl Gran % (36.0-66.0) % Eos # (Auto) (0-0.5) Absolute Lymphs (auto) (1.0-4.6) Absolute Monos (auto) (0.0-1.3) Lymphocytes % (24.0-44.0) % Monocytes % (0.0-12.0) % Eosinophils % (0.00-5.0) % Basophils % (0.0-0.4) % Absolute Granulocytes (1.4-6.9) Basophils # (0-0.4) Sodium (137-145) mmol/L Potassium (3.5-5.1) mmol/L Chloride (98-107) mmol/L Carbon Dioxide (22-30) mmol/L Anion Gap (5-15) MEQ/L BUN (9-20) mg/dL Creatinine (0.66-1.25) mg/dL Estimated GFR ML/MIN Glucose (74-106) mg/dL Hemoglobin A1c 7.23 H (4.5-6.0) % Lactic Acid (0.4-2.0) Calcium (8.4-10.2) mg/dL Total Bilirubin (0.2-1.3) mg/dL AST (17-59) U/L ALT (0-50) U/L Alkaline Phosphatase (38-126) U/L Creatine Kinase (55-170) U/L Troponin I < 0.012 (0.000-0.034) ng/mL Serum Total Protein (6.3-8.2) g/dL Albumin (3.5-5.0) g/dL Triglycerides (30-150) mg/dL Cholesterol (50-200) mg/dL LDL Cholesterol (30-100) mg/dL HDL Cholesterol (40-60) mg/dL Heart Disease Risk Ratio TSH 3rd Generation (0.47-4.68) mIU/L Ur Collection Type Urine Color (YELLOW) Urine Appearance (CLEAR) Urine pH (5-6) Ur Specific [place] (1.005-1.025) Urine Protein (Negative) Urine Ketones (NEGATIVE) Urine Blood (0-5) Maxwell/ul Urine Nitrite (NEGATIVE) Urine Bilirubin (NEGATIVE) Urine Urobilinogen (0-1) mg/dL Ur Leukocyte Esterase (NEGATIVE) Urine Culture Reflexed (NO) Urine Glucose (NEGATIVE) mg/dL Urine Opiates Level POSITIVE (NEGATIVE) Ur Methadone NEGATIVE (NEGATIVE) Urine Barbiturates NEGATIVE (NEGATIVE) Ur Phencyclidine (PCP) NEGATIVE (NEGATIVE) Urine Amphetamine POSITIVE (NEGATIVE) U Benzodiazepine Level NEGATIVE (NEGATIVE) Urine Cocaine NEGATIVE (NEGATIVE) Urine Marijuana (THC) NEGATIVE (NEGATIVE) 11/27/17 11/28/17 11/28/17 Range/Units 23:45 05:20 05:20 WBC 6.5 (4.0-10.5) K/mm3 RBC 4.07 L (4.1-5.6) M/mm3 Hgb 11.5 L (12.5-18.0) gm/dl Hct 35.5 L (42-50) % MCV 87.2 (78-100) fl MCH 28.2 (26-32) pg MCHC 32.4 (32-36) g/dl RDW 13.7 (11.5-14.0) % Plt Count 185 (150-450) K/mm3 MPV 9.7 H (6-9.5) fl Gran % 61.2 (36.0-66.0) % Eos # (Auto) 0.15 (0-0.5) Absolute Lymphs (auto) 1.80 (1.0-4.6) Absolute Monos (auto) 0.55 (0.0-1.3) Lymphocytes % 27.8 (24.0-44.0) % Monocytes % 8.5 (0.0-12.0) % Eosinophils % 2.3 (0.00-5.0) % Basophils % 0.2 (0.0-0.4) % Absolute Granulocytes 3.96 (1.4-6.9) Basophils # 0.01 (0-0.4) Sodium 139 (137-145) mmol/L Potassium 4.3 (3.5-5.1) mmol/L Chloride 106 (98-107) mmol/L Carbon Dioxide 27 (22-30) mmol/L Anion Gap 9.5 (5-15) MEQ/L BUN 21 H (9-20) mg/dL Creatinine 1.02 (0.66-1.25) mg/dL Estimated GFR > 60.0 ML/MIN Glucose 94 (74-106) mg/dL Hemoglobin A1c (4.5-6.0) % Lactic Acid (0.4-2.0) Calcium 8.5 (8.4-10.2) mg/dL Total Bilirubin 0.60 (0.2-1.3) mg/dL AST 34 (17-59) U/L ALT 24 (0-50) U/L Alkaline Phosphatase 96 (38-126) U/L Creatine Kinase (55-170) U/L Troponin I < 0.012 (0.000-0.034) ng/mL Serum Total Protein 5.4 L (6.3-8.2) g/dL Albumin 2.9 L (3.5-5.0) g/dL Triglycerides (30-150) mg/dL Cholesterol (50-200) mg/dL LDL Cholesterol (30-100) mg/dL HDL Cholesterol (40-60) mg/dL Heart Disease Risk Ratio TSH 3rd Generation (0.47-4.68) mIU/L Ur Collection Type Urine Color (YELLOW) Urine Appearance (CLEAR) Urine pH (5-6) Ur Specific [place] (1.005-1.025) Urine Protein (Negative) Urine Ketones (NEGATIVE) Urine Blood (0-5) Maxwell/ul Urine Nitrite (NEGATIVE) Urine Bilirubin (NEGATIVE) Urine Urobilinogen (0-1) mg/dL Ur Leukocyte Esterase (NEGATIVE) Urine Culture Reflexed (NO) Urine Glucose (NEGATIVE) mg/dL Urine Opiates Level (NEGATIVE) Ur Methadone (NEGATIVE) Urine Barbiturates (NEGATIVE) Ur Phencyclidine (PCP) (NEGATIVE) Urine Amphetamine (NEGATIVE) U Benzodiazepine Level (NEGATIVE) Urine Cocaine (NEGATIVE) Urine Marijuana (THC) (NEGATIVE) 11/28/17 11/28/17 Range/Units 05:20 05:20 WBC (4.0-10.5) K/mm3 RBC (4.1-5.6) M/mm3 Hgb (12.5-18.0) gm/dl Hct (42-50) % MCV (78-100) fl MCH (26-32) pg MCHC (32-36) g/dl RDW (11.5-14.0) % Plt Count (150-450) K/mm3 MPV (6-9.5) fl Gran % (36.0-66.0) % Eos # (Auto) (0-0.5) Absolute Lymphs (auto) (1.0-4.6) Absolute Monos (auto) (0.0-1.3) Lymphocytes % (24.0-44.0) % Monocytes % (0.0-12.0) % Eosinophils % (0.00-5.0) % Basophils % (0.0-0.4) % Absolute Granulocytes (1.4-6.9) Basophils # (0-0.4) Sodium (137-145) mmol/L Potassium (3.5-5.1) mmol/L Chloride (98-107) mmol/L Carbon Dioxide (22-30) mmol/L Anion Gap (5-15) MEQ/L BUN (9-20) mg/dL Creatinine (0.66-1.25) mg/dL Estimated GFR ML/MIN Glucose (74-106) mg/dL Hemoglobin A1c (4.5-6.0) % Lactic Acid (0.4-2.0) Calcium (8.4-10.2) mg/dL Total Bilirubin (0.2-1.3) mg/dL AST (17-59) U/L ALT (0-50) U/L Alkaline Phosphatase (38-126) U/L Creatine Kinase 588 H (55-170) U/L Troponin I (0.000-0.034) ng/mL Serum Total Protein (6.3-8.2) g/dL Albumin (3.5-5.0) g/dL Triglycerides 58 (30-150) mg/dL Cholesterol 95 (50-200) mg/dL LDL Cholesterol 33 (30-100) mg/dL HDL Cholesterol 38 L (40-60) mg/dL Heart Disease Risk Ratio 2.5 TSH 3rd Generation (0.47-4.68) mIU/L Ur Collection Type Urine Color (YELLOW) Urine Appearance (CLEAR) Urine pH (5-6) Ur Specific [place] (1.005-1.025) Urine Protein (Negative) Urine Ketones (NEGATIVE) Urine Blood (0-5) Maxwell/ul Urine Nitrite (NEGATIVE) Urine Bilirubin (NEGATIVE) Urine Urobilinogen (0-1) mg/dL Ur Leukocyte Esterase (NEGATIVE) Urine Culture Reflexed (NO) Urine Glucose (NEGATIVE) mg/dL Urine Opiates Level (NEGATIVE) Ur Methadone (NEGATIVE) Urine Barbiturates (NEGATIVE) Ur Phencyclidine (PCP) (NEGATIVE) Urine Amphetamine (NEGATIVE) U Benzodiazepine Level (NEGATIVE) Urine Cocaine (NEGATIVE) Urine Marijuana (THC) (NEGATIVE) Radiology Exams: Radiology Procedures Category Date Time Status HEAD WITHOUT CONTRAST [CT] Stat Exams 11/27/17 11:11 Completed Assessment/Plan (1) Syncope Current Visit: Yes Status: Acute Assessment & Plan: Most likely a combination of his bradycardia and hypoglycemia and perhaps his pain medications and illicit drug use. He has not had any events on telemetry and his EKG is sinus rhythm with a HR of 63. His metoprolol has been held. Dr. Em has been consulted. Code(s): R55 - SYNCOPE AND COLLAPSE (2) Bradycardia Current Visit: Yes Status: Resolved Onset Date: ~11/27/17 Assessment & Plan: Resolved with holding the beta daily. Normal EKG this am. Code(s): R00.1 - BRADYCARDIA, UNSPECIFIED (3) Dehydration Current Visit: Yes Status: Acute Onset Date: ~11/27/17 Assessment & Plan: Improved; continue IV fluids. Code(s): E86.0 - DEHYDRATION (4) Myalgia and myositis, unspecified Current Visit: Yes Status: Acute Assessment & Plan: CPK was elevated yesterday but improving today. Continue IV fluids and encourage oral intake. Code(s): STC5536 - (5) Myalgia Current Visit: Yes Status: Acute Assessment & Plan: May be related to strenuous labor or drug use. Will need to be followed up as an outpatient. Code(s): M79.1 - MYALGIA (6) Essential hypertension Current Visit: Yes Status: Acute Assessment & Plan: Well controlled on lisinopril. TSH normal. Code(s): I10 - ESSENTIAL (PRIMARY) HYPERTENSION (7) DM w/o complication type II Current Visit: Yes Status: Acute Assessment & Plan: His lantus and novolog have been held. He has a low dose sliding scale but has not needed this yet since he was admitted. Hgb A1C was 7.2. Code(s): E11.9 - TYPE 2 DIABETES MELLITUS WITHOUT COMPLICATIONS (8) Illicit drug use Current Visit: Yes Status: Acute Assessment & Plan: Patient counseled that he should stop using meth. Offered referral to [facility] but he declines at this time. Discussed how dangerous this is and that his primary care physician will not want to prescribed controlled medications for his pain if he is using meth. Code(s): F19.90 - OTHER PSYCHOACTIVE SUBSTANCE USE, UNSPECIFIED, UNCOMPLICATED (9) Chronic pain Current Visit: Yes Status: Acute Code(s): G89.29 - OTHER CHRONIC PAIN (10) Insomnia Current Visit: Yes Status: Acute Code(s): G47.00 - INSOMNIA, UNSPECIFIED
[2017-11-28] MEDS ORDERED: ENOXAPARIN SODIUM SQ SCH (10:00)
[2017-11-28 12:21] VITALS: BP 116/57; PULSE 66; O2SAT 94
--- NOTE | 2017-11-28 13:08 | PCM.DCORD ---
- Discharge Discharge Date: 11/28/17 Disposition: Home, Self-Care Condition: Good Prescriptions: New Insulin Glargine,Hum.rec.anlog [Lantus] 10 unit SQ DAILY #1 vial Acetaminophen 325 mg [Tylenol 325 mg] 650 mg PO Q4H PRN PRN tablet PRN Reason: Pain, Fever, Headache Continue Tamsulosin HCl 0.4 mg [Flomax 0.4 MG] 0.4 mg PO HS Alprazolam 1 mg [Xanax 1 mg] 1 mg PO UD PRN PRN Reason: sleep Ranitidine HCl [Zantac] 300 mg PO HS Atorvastatin Calcium 20 mg PO HS Lisinopril [Prinivil] 10 mg PO HS Omeprazole 20 MG [Prilosec 20 mg] 20 mg PO QHS Aspirin 81 mg PO HS Discontinued Metoprolol Tartrate 50 mg PO HS Insulin Glargine [Lantus Insulin] 50 unit SQ HS Insulin Aspart [NovoLOG Insulin] 15 unit SQ BID PRN PRN PRN Reason: blood sugar Hydrocodone Bit/Acetaminophen [Hydrocodon-Acetaminophn 10-325] 1 each PO Q6HPRN PRN PRN Reason: Pain Instructions: Bradycardia, Low Blood Sugar in People With Diabetes Follow up with: ANGELLA LICEA [Primary Care Provider] - 1 Week Forms: Discharge Instructions
--- NOTE | 2017-11-28 14:13 | CONS ---
CONSULT DATE: 11/28/2017 BRIEF HISTORY: This is a 67 year-old male who was seen because of history of syncope. This happened yesterday when he was apparently sitting on the commode. He passed out and he was out for about an hour. When he regained consciousness he stated that he was cognizant of his environment. He knew that he passed out. He later was brought to the emergency room and on initial evaluation was noted to be bradycardic. He was given IV fluids several times. By the time of examination was feeling better. The patient apparently has been doing yard work a few hours before this incident and he appears to have not been well hydrated. He also took his long-acting insulin in the morning and his beta blockers. On initial evaluation in the emergency room he was noted to be bradycardic and his beta blockers have been held. The patient denies any chest pains. No shortness of breath. He is almost back to his baseline. The patient had a cardiac catheterization done in 2008 and showed no flow limiting stenosis. He had some mild left ventricular dysfunction. CARDIAC RISK FACTORS: Positive for diabetes. History of hypertension. History of hyperlipidemia. REVIEW OF SYSTEMS: SKIDDER: No history of stroke or seizures. RESPIRATORY: No chronic cough or hemoptysis. GI: History of hepatitis C. : Negative for dysuria or hematuria. PERIPHERAL VASCULAR: No history of DVT or claudication. SKIN: No active dermatological problems. HEMATOLOGY: No blood dyscrasia. PAST SURGICAL HISTORY: Surgery of right ankle. Rotator cuff surgery. Back surgery. Surgery for skin cancer. Right knee arthroscope. CURRENT MEDICATIONS: Aspirin, famotidine, lisinopril, Protonix, Simvastatin, Flomax. SOCIAL HISTORY: He denies any significant alcohol intake. PHYSICAL EXAMINATION: His blood pressure is 103/53, heart rate 69, respirations about 14. GENERAL: The patient is an elderly male who is alert, oriented who is not in any form of distress. HEENT: Unremarkable. NECK: No significant JVD. No carotid bruits. CHEST: The breath sounds are clear. CARDIAC: Heart tones are normal. No audible gallops. The rhythm is regular. ABDOMEN: Soft with normal bowel sounds. EXTREMITIES: No significant edema with palpable distal pulses. LAB DATA AND DIAGNOSTIC TESTS: The lipid panel showed cholesterol of 95, LDL 33. CBC showed hemoglobin 11.5, PLT 185,000. Troponin I less than 0.012. Creatinine kinase is 588. Glomerular filtration rate more than 60. Potassium 4.3. His urine drug screen was positive for amphetamine and also some opiate. IMPRESSION: 1) In essence the patient's syncopal attack may be related to a combination of mild hypoglycemic attack, orthostatic hypotension from dehydrated state and also the effects of beta daily producing bradycardia. Beta blockers are being held. There is no evidence of any myocardial infarction. He is currently angina free. I will continue to hold beta daily at this time. He is currently angina free. There is no evidence of congested symptoms. Would customer support associate the patient to a Holter monitor to rule out any cardiac arrhythmia. I will see him in the office for follow up. 2) History of mild left ventricular systolic dysfunction. 3) History of diabetes. 4) History of hypertension. I will follow up with you.
[2017-11-28] MEDS ORDERED: ECOTRIN 81 MG PO SCH (22:00)
[2017-11-28] MEDS ORDERED: Protonix 40MG Tablet PO SCH (22:00)
--- NOTE | 2017-12-03 10:12 | HOLTER ---
DATE OF STUDY: 11/28/2017 STUDY PERFORMED: 24 hour Holter monitor. INDICATION: History of syncope, bradycardia. The basic rhythm is normal sinus rhythm with heart rates varying from 42 to 136 beats/minute with average heart rate of 74. There occasional PVC's. There was one - 6 beat run of ventricular tachycardia. There were occasional PAC's. There was no sustained tachyarrhythmia. No significant pauses.
== END 2017-11-28 13:40 | disposition home or self-care (01) ==
LOC: ED 10:52 → MED SURG 16:10
PROVIDERS: ADMIT Internal Medicine; ATTEND Family Medicine
DX: R55 Syncope and collapse (principal); R00.1 Bradycardia, unspecified; E86.0 Dehydration; M79.1 Myalgia; M60.9 Myositis, unspecified; I10 Essential (primary) hypertension; E11.9 Type 2 diabetes mellitus without complications; F19.90 Other psychoactive substance use, unspecified, uncomplicated; G89.29 Other chronic pain; G47.00 Insomnia, unspecified; E78.5 Hyperlipidemia, unspecified; Z79.899 Other long term (current) drug therapy
CPT/HCPCS: 36000; 36415; 70450; 80053; 80061; 80307; 81002; 82550; 82962; 83036; 83605; 83721; 84443; 84484; 85025; 93005; 93225; 93268; 96360; 96365; 96374; 96375; 99285; J1650; J2405; A9270-GY; G0378

== ENCOUNTER 2018-01-08 04:59 | Emergency (ER) | payer MEDICARE, OTHER ==
--- NOTE | 2018-01-08 05:29 | ERPHSYRPT ---
- History of Present Illness Time Seen by Provider: 01/08/18 05:23 Source: patient Exam Limitations: no limitations Physician History: 67-year-old white male status post right rotator cuff surgery yesterday arrives with complaint that he feels like his sling is not fitting right knee is having pain on his dorsal right forearm. He states he felt this way since surgery yesterday morning. Patient denies any other complaints. Past medical history includes diabetes type 2, cardiomyopathy, hepatitis C Past surgical history includes multiple surgeries in the right ankle, rotator cuff bilaterally back surgery skin cancer surgery on the back of his head right knee are served scop he and right foot surgery Occurred: yesterday Method of Injury: other (patient with pain in his right arm after surgery yesterday feels like sling was not fitting right) Quality: constant Severity of Pain-Max: moderate Severity of Pain-Current: mild Extremities Pain Location: shoulder: right (I think is much better) Modifying Factors: Improves With: other (patient feels like sling isn't fitting right) Associated Symptoms: none Allergies/Adverse Reactions: No Known Drug Allergies Allergy (Verified 11/27/17 11:09) Home Medications: Tamsulosin HCl 0.4 mg [Flomax 0.4 MG] 0.4 mg PO HS 10/06/16 [History] Alprazolam 1 mg [Xanax 1 mg] 1 mg PO UD PRN 10/31/17 [History] Atorvastatin Calcium 20 mg PO HS 10/31/17 [History] Lisinopril [Prinivil] 10 mg PO HS 10/31/17 [History] Omeprazole 20 MG [Prilosec 20 mg] 20 mg PO QHS 10/31/17 [History] Ranitidine HCl [Zantac] 300 mg PO HS 10/31/17 [History] Aspirin 81 mg PO HS 11/27/17 [History] Hx Tetanus, Diphtheria Vaccination/Date Given: Yes Hx Influenza Vaccination/Date Given: Yes Hx Pneumococcal Vaccination/Date Given: No - Review of Systems Constitutional: No Fever, No Chills Eyes: No Symptoms Ears, Nose, & Throat: No Symptoms Respiratory: No Cough, No Dyspnea Cardiac: No Chest Pain, No Edema, No Syncope Abdominal/Gastrointestinal: No Abdominal Pain, No Nausea, No Vomiting, No Diarrhea Genitourinary Symptoms: No Dysuria Musculoskeletal: Other (Pain right shoulder paresthesia right dorsal forearm) Skin: No Rash Neurological: No Dizziness, No Focal Weakness, No Sensory Changes Psychological: No Symptoms Endocrine: No Symptoms All Other Systems: Reviewed and Negative - Past Medical History Pertinent Past Medical History: Yes Neurological History: No Pertinent History ENT History: No Pertinent History Cardiac History: High Cholesterol, Hypertension Respiratory History: No Pertinent History Endocrine Medical History: Diabetes Type II Musculoskeletal History: Osteoarthritis GI Medical History: GERD, Other History: No Pertinent History Psycho-Social History: Anxiety Male Reproductive Disorders: Prostate Problems Other Medical History: HEPATITIS C - CONTROLLED; HEART CATH; HEART; VIRUS HX; BILATERAL RTC REPAIR; 1ST MTP REPLACEMENT W/ 3 SUGERIES; LS-PINE FUSION; R KNEE ARTHROSCOPY. Barretts esophagus - Past Surgical History Past Surgical History: Yes Neuro Surgical History: No Pertinent History Cardiac: Cardiac Catheterization Respiratory: No Pertinent History Gastrointestinal: No Pertinent History, Other Genitourinary: No Pertinent History Musculoskeletal: Orthopedic Surgery Male Surgical History: No Pertinent History Other Surgical History: BILATERAL ROTOR CUFF, BACK-"fusion of lower back area", RIGHT Knee arthroscopy with "clean up",heart cath " 5 or more yrs ago". several liver biopsies. skin cancer removed from head - Social History Smoking Status: Never smoker Exposure to second hand smoke: No Drug Use: none Patient Lives Alone: Yes - Physical Exam General Appearance: mild distress, alert Eyes, Ears, Nose, Throat Exam: moist mucous membranes Neck Exam: non-tender, supple Cardiovascular/Respiratory Exam: chest non-tender, normal breath sounds, regular rate/rhythm, no respiratory distress Abdominal Exam: non-tender, No guarding Back Exam: normal inspection, No vertebral tenderness Shoulder Exam: No normal inspection (right shoulder is in a sling, clean dressings are applied, patient with full range of motion right fingers, sensation intact right fingers good capillary refill right fingers radial and ulnar pulses intact and symmetrical 2 over 4) Elbow/Forearm Exam: normal inspection (right shoulder is in a sling therefore decreased range of motionright elbow otherwise within normal limits) Wrist Exam: normal inspection Hand Exam: normal inspection, non-tender, no evidence of injury, normal ROM Neuro/Tendon Exam: normal sensation, normal motor functions Mental Status Exam: alert, oriented x 3, cooperative Skin Exam: normal color, warm, dry SpO2 Interpretation: normal (97%) - Course Nursing assessment & vital signs reviewed: Yes - Progress Progress: improved Progress Note: 01/08/18 05:28 This is a 67-year-old white male who had shoulder surgery yesterday for rotator cuff. He states that he does not feel like his sling is fitting properly he states he is having pain in the right shoulder and also he felt paresthesias her right posterior forearm. Patient has full range of motion to his right hand good capillary refill to his right finger sensation intact to his right fingers. Patient's radial and ulnar pulses are intact 2 over 4. The patient's nurse has replaced the patient's sling and repositioned the patient's cryo-cuff, with good capillary refill and pulses afterwards he is feeling much better. Will go ahead and discharge patient patient is to follow-up with Dr. Pedro's office later this morning. He is to return for acute distress or for severe symptoms. - Departure Time of Disposition: 05:29 Departure Disposition: Home Clinical Impression: Right arm pain, status post right shoulder surgery, discomfort from sling Condition: Fair Critical Care Time: No Referrals: ANGELLA LICEA [Primary Care Provider] - Additional Instructions: Return home. Continue care as outlined by Dr. Pedro's office. Continue your current medications. Follow-up with Dr. Pedro's office later today. Return for acute distress or for severe symptoms.
[2018-01-08 05:31] VITALS: BP 133/73; PULSE 88; O2SAT 97
== END 2018-01-08 05:42 | disposition home or self-care (01) ==
LOC: ED 04:59
DX: G89.18 Other acute postprocedural pain (principal); M79.601 Pain in right arm; I42.9 Cardiomyopathy, unspecified; I10 Essential (primary) hypertension; E11.9 Type 2 diabetes mellitus without complications; B19.20 Unspecified viral hepatitis C without hepatic coma; M19.90 Unspecified osteoarthritis, unspecified site; K21.9 Gastro-esophageal reflux disease without esophagitis; F41.9 Anxiety disorder, unspecified; Z79.899 Other long term (current) drug therapy
CPT/HCPCS: 99283

== ENCOUNTER 2018-09-07 17:24 | Emergency (ER) | payer MEDICARE, OTHER ==
[2018-09-07 17:33] VITALS: BP 136/93; O2SAT 98
[2018-09-07] MEDS ORDERED: XYLOCAINE 1% HCL 20 ML MDV IJ ONE (17:41)
[2018-09-07] MEDS ORDERED: Adacel Vial IM ONE ×2 (17:41→17:46)
[2018-09-07] MEDS ORDERED: BACIGUENT PACKET TP ONE (17:41)
--- NOTE | 2018-09-07 17:44 | ERPHSYRPT ---
- History of Present Illness Time Seen by Provider: 09/07/18 17:36 Source: patient Exam Limitations: no limitations Patient Subjective Stated Complaint: pt here with a fish hook to back of head, Triage Nursing Assessment: pt alert, resp easy, skin w/d/p. walked in, pt has fish hook embedded to back if head Physician History: 68-year-old white male arrives with complaint of one hook of a treble hook which is embedded in his posterior scalp near his occipital area. He states he got a fishhook into his scalp 20 minutes prior to arrival. He denies any other complaints. Past medical history includes diabetes type 2, cardiomegaly, hepatitis C past surgical history includes multiple surgeries right ankle, bilateral rotator cuff low back surgery, skin cancer surgery to the back of his head, right knee arthroplasty right foot surgery Timing/Duration: today Severity: mild Modifying Factors: Improves With: nothing Associated Symptoms: No denies symptoms, No nausea, No vomiting, No abdominal pain, No shortness of breath, No heartburn, No diaphoresis, No cough, No chills , No chest pain, No fever, No headaches, No loss of appetite, No malaise, No rash, No syncope, No seizure, No weakness Allergies/Adverse Reactions: No Known Drug Allergies Allergy (Verified 09/07/18 17:33) Home Medications: Tamsulosin HCl 0.4 mg [Flomax 0.4 MG] 0.4 mg PO HS 10/06/16 [History] Alprazolam 1 mg [Xanax 1 mg] 1 mg PO UD PRN 10/31/17 [History] Atorvastatin Calcium 20 mg PO HS 10/31/17 [History] Lisinopril [Prinivil] 10 mg PO HS 10/31/17 [History] Omeprazole 20 MG [Prilosec 20 mg] 20 mg PO QHS 10/31/17 [History] Ranitidine HCl [Zantac] 300 mg PO HS 10/31/17 [History] Aspirin 81 mg PO HS 11/27/17 [History] Hx Tetanus, Diphtheria Vaccination/Date Given: Yes (4 years ago) Hx Influenza Vaccination/Date Given: Yes Hx Pneumococcal Vaccination/Date Given: No Immunizations Up to Date: Yes - Review of Systems Constitutional: No Fever, No Chills Eyes: No Symptoms Ears, Nose, & Throat: No Symptoms Respiratory: No Cough, No Dyspnea Cardiac: No Chest Pain, No Edema, No Syncope Abdominal/Gastrointestinal: No Abdominal Pain, No Nausea, No Vomiting, No Diarrhea Genitourinary Symptoms: No Dysuria Musculoskeletal: No Back Pain, No Neck Pain Skin: Other (fishhook embedded scalp occipital region) Neurological: No Dizziness, No Focal Weakness, No Sensory Changes Psychological: No Symptoms Endocrine: No Symptoms All Other Systems: Reviewed and Negative - Past Medical History Pertinent Past Medical History: Yes Neurological History: Peripheral Neuropathy ENT History: No Pertinent History Cardiac History: High Cholesterol, Hypertension Respiratory History: No Pertinent History Endocrine Medical History: Diabetes Type II Musculoskeletal History: Arthritis, Fractures GI Medical History: GERD, Other History: No Pertinent History Psycho-Social History: Anxiety Male Reproductive Disorders: Prostate Problems Other Medical History: Rotator Cuff Repair (R) approx 4-6 years ago. Back surgery (fusion of lumbar spine) approx 9 years ago. Rotator Cuff Repair (L) approx 4-6 years ago. R D1 toe joint surgery x3 approx 1.5 years ago - Past Surgical History Past Surgical History: Yes Neuro Surgical History: No Pertinent History Cardiac: Cardiac Catheterization Respiratory: No Pertinent History Gastrointestinal: No Pertinent History, Other Genitourinary: No Pertinent History Musculoskeletal: Orthopedic Surgery Male Surgical History: No Pertinent History Other Surgical History: BILATERAL ROTOR CUFF, BACK-"fusion of lower back area", RIGHT Knee arthroscopy with "clean up",heart cath " 5 or more yrs ago". several liver biopsies. skin cancer removed from head - Social History Smoking Status: Never smoker Exposure to second hand smoke: No Drug Use: none Patient Lives Alone: Yes - Nursing Vital Signs Nursing Vital Signs: Initial Vital Signs Temperature 97.8 F 09/07/18 17:28 Respiratory Rate 16 09/07/18 17:28 Blood Pressure 136/93 09/07/18 17:28 O2 Sat by Pulse Oximetry 98 09/07/18 17:28 Pain Scale Pain Intensity 2 - Physical Exam General Appearance: no apparent distress, alert Eye Exam: PERRL/EOMI, eyes nml inspection Ears, Nose, Throat Exam: normal ENT inspection, TMs normal, pharynx normal, moist mucous membranes Neck Exam: normal inspection, non-tender, supple, full range of motion Respiratory Exam: normal breath sounds, lungs clear, No respiratory distress Cardiovascular Exam: regular rate/rhythm, normal heart sounds, normal peripheral pulses, capillary refill <2 sec Gastrointestinal/Abdomen Exam: soft, normal bowel sounds, No tenderness, No mass Back Exam: normal inspection, normal range of motion, No CVA tenderness, No vertebral tenderness Extremity Exam: normal inspection, normal range of motion, pelvis stable Neurologic Exam: alert, oriented x 3, cooperative, dough raiser II-XII nml as tested, normal mood/affect, nml cerebellar function, nml station & gait, sensation nml, No motor deficits Skin Exam: other (fishhook embedded scalp occipital region) Lymphatic Exam: No adenopathy SpO2 Interpretation: normal (98%) SpO2: 98 Ordered Tests: Active Orders 24 hr Category Date Time Status Wound Care STAT Care 09/07/18 17:41 Active Medication Summary Discontinued Medications Generic Name Dose Route Start Last Admin Trade Name Freq PRN Reason Stop Dose Admin Bacitracin Zinc 0.9 gm 09/07/18 17:41 09/07/18 18:13 Baciguent Packet TP 09/07/18 17:42 0.9 gm STAT ONE Administration Bacitracin Zinc Confirm 09/07/18 17:45 Baciguent Packet Administered 09/07/18 17:46 Dose 1 gm .ROUTE .STK-MED ONE Diphtheria/Tetanus/Acell Pertussis 0.5 ml 09/07/18 17:41 09/07/18 18:12 Adacel Vial IM 09/07/18 17:42 0.5 ml .ONCE ONE Administration Diphtheria/Tetanus/Acell Pertussis Confirm 09/07/18 17:46 Adacel Vial Administered 09/07/18 17:47 Dose 0.5 ml IM .STK-MED ONE Lidocaine HCl 5 ml 09/07/18 17:41 09/07/18 18:13 Xylocaine 1% Hcl 20 Ml Mdv IJ 09/07/18 17:42 5 ml STAT ONE Administration Lidocaine HCl Confirm 09/07/18 17:46 Xylocaine 1% Hcl 20 Ml Mdv Administered 09/07/18 17:47 Dose 5 ml .ROUTE .STK-MED ONE - Progress Progress: improved Progress Note: 09/07/18 18:00 Firth removal posterior scalp. Area near the patient's entry site is anesthetized with 1% lidocaine. The additional portions of the treble hook are clipped off.hook is turned through the scalp willian cut off and fishhook removed Scalp is sterilely cleansed by the nurse and bacitracin applied. DTaP is updated. - Departure Departure Disposition: Home Clinical Impression: fish hook removal scalp Condition: Fair Critical Care Time: No Referrals: MAIDA MARINO MD [Primary Care Provider] - Additional Instructions: Clean area and apply bacitracin several days times a day until healed. Followup with your family Dr. or return if problems. Return for acute distress or for severe symptoms.
[2018-09-07] MEDS ORDERED: BACIGUENT PACKET ONE (17:45)
[2018-09-07] MEDS ORDERED: XYLOCAINE 1% HCL 20 ML MDV ONE (17:46)
== END 2018-09-07 18:18 | disposition home or self-care (01) ==
LOC: ED 17:24
DX: S00.05XA Superficial foreign body of scalp, initial encounter (principal); W45.8XXA Other foreign body or object entering through skin, initial encounter; W20.8XXA Other cause of strike by thrown, projected or falling object, initial encounter; Y92.9 Unspecified place or not applicable; E11.9 Type 2 diabetes mellitus without complications; I51.7 Cardiomegaly; B19.20 Unspecified viral hepatitis C without hepatic coma; Z79.899 Other long term (current) drug therapy; I10 Essential (primary) hypertension; G62.9 Polyneuropathy, unspecified; E78.00 Pure hypercholesterolemia, unspecified; M19.90 Unspecified osteoarthritis, unspecified site
CPT/HCPCS: 90471; 90715; 96372; 99284; A9270-GY

== ENCOUNTER 2019-07-29 15:35 | Emergency (ER) | payer MEDICARE, OTHER ==
[2019-07-29] MEDS ORDERED: Adacel Vial IM ONE (15:53)
--- NOTE | 2019-07-29 15:59 | ERPHSYRPT ---
- History of Present Illness Time Seen by Provider: 07/29/19 15:45 Source: patient Exam Limitations: no limitations Physician History: 69 years old male presented in the ER with a chief complaint of fall and left- sided scalp injury. Patient reported he got off of the ladder and his foot got tangled and he spun and fell on the ground. There was a ground-level fall. Hit his head against something and there was minimal bleeding earlier which is stopped. Patient is not sure whether he had a loss of consciousness or not but he stays it might be for a few seconds. Although patient remembers the whole sequence of events. Denies any numbness tingling or focal weakness. No nausea or vomiting. No seizure-like activity. He is complaining of mild dull aching headache on the left side with no neck pain or swelling or difficulty movements. No chest pain palpitations or shortness of breath before or after the fall. No injury anywhere else. Unsure about tetanus status. Occurred: just prior to arrival Severity: mild Head Injury Location: parietal Method of Injury: fell Loss of Consciousness: brief (seconds), unsure Associated Symptoms: denies symptoms Allergies/Adverse Reactions: No Known Drug Allergies Allergy (Verified 07/29/19 15:55) Home Medications: Tamsulosin HCl 0.4 mg [Flomax 0.4 MG] 0.4 mg PO HS 10/06/16 [History] Alprazolam 1 mg [Xanax 1 mg] 1 mg PO QID 10/31/17 [History] Omeprazole 20 MG [Prilosec 20 mg] 20 mg PO QHS 10/31/17 [History] lisinopriL [Prinivil] 10 mg PO HS 10/31/17 [History] raNITIdine HCl [Zantac] 300 mg PO HS 10/31/17 [History] Aspirin 81 mg PO HS 11/27/17 [History] Insulin Glargine,Hum.rec.anlog [Lantus] 50 unit SQ DAILY 07/29/19 [History] Metformin HCl 500 mg [Glucophage 500 MG] 500 mg PO BIDWM 07/29/19 [History ] Hx Tetanus, Diphtheria Vaccination/Date Given: Yes (4 years ago) Hx Influenza Vaccination/Date Given: Yes Hx Pneumococcal Vaccination/Date Given: No - Review of Systems Constitutional: No Symptoms Eyes: No Symptoms Ears, Nose, & Throat: No Symptoms Respiratory: No Symptoms Cardiac: No Symptoms Abdominal/Gastrointestinal: No Symptoms Genitourinary Symptoms: No Symptoms Musculoskeletal: Fall Neurological: Headache Psychological: No Symptoms Endocrine: No Symptoms Hematologic/Lymphatic: No Symptoms Immunological/Allergic: No Symptoms - Past Medical History Pertinent Past Medical History: Yes Neurological History: Peripheral Neuropathy ENT History: No Pertinent History Cardiac History: High Cholesterol, Hypertension Respiratory History: No Pertinent History Endocrine Medical History: Diabetes Type II Musculoskeletal History: Arthritis, Fractures GI Medical History: GERD, Other History: No Pertinent History Psycho-Social History: Anxiety Male Reproductive Disorders: Prostate Problems Other Medical History: Rotator Cuff Repair (R) approx 4-6 years ago. Back surgery (fusion of lumbar spine) approx 9 years ago. Rotator Cuff Repair (L) approx 4-6 years ago. R D1 toe joint surgery x3 approx 1.5 years ago - Past Surgical History Past Surgical History: Yes Neuro Surgical History: No Pertinent History Cardiac: Cardiac Catheterization Respiratory: No Pertinent History Gastrointestinal: No Pertinent History, Other Genitourinary: No Pertinent History Musculoskeletal: Orthopedic Surgery Male Surgical History: No Pertinent History Other Surgical History: BILATERAL ROTOR CUFF, BACK-"fusion of lower back area", RIGHT Knee arthroscopy with "clean up",heart cath " 5 or more yrs ago". several liver biopsies. skin cancer removed from head - Social History Smoking Status: Never smoker Exposure to second hand smoke: No Drug Use: none Patient Lives Alone: Yes - Nursing Vital Signs Nursing Vital Signs: Initial Vital Signs Temperature 98.0 F 07/29/19 15:40 Pulse Rate 85 07/29/19 15:40 Blood Pressure 166/94 07/29/19 15:40 O2 Sat by Pulse Oximetry 96 07/29/19 15:40 Pain Scale Pain Intensity 6 - Tami Coma Score Best Eye Response (Rhame): (4) open spontaneously Best Verbal Response (Rhame): (5) oriented Best Motor Response (Tami): (6) obeys commands Tami Total: 15 - Physical Exam General Appearance: no apparent distress, alert Head Injury: contusions (Left parietal area 1.5 cm. No step in deformity. No hematoma.), tenderness, No Nicolas's Sign, No raccoon eyes, No swelling Eye Exam: bilateral eye: normal inspection, PERRL, EOMI ENT Exam: airway nml, nml ext.inspection, No dental injury Neck Exam: supple, trachea midline, full range of motion, normal alignment, normal inspection Cardiovascular/Respiratory Exam: chest non-tender, normal breath sounds, regular rate/rhythm Gastrointestinal/Abdominal Exam: soft, non tender Back Exam: normal inspection, normal range of motion, No CVA tenderness Extremity Exam: non-tender, normal range of motion, normal inspection, normal capillary refill Mental Status Exam: alert, oriented x 3, cooperative brazing machine tender Exam: normal hearing, normal speech, PERRL Coordination/Gait Exam: normal finger to nose, normal gait, normal cerebellar function Motor/Sensory Exam: no motor deficit, no sensory deficit, no pronator drift DTR Exam: bicep (R): 2+, bicep (L): 2+, knee (R): 2+, knee (L): 2+ Skin Exam: normal color, warm, dry SpO2 Interpretation: normal O2 Delivery: Room Air - Course Nursing assessment & vital signs reviewed: Yes Ordered Tests: Active Orders 24 hr Category Date Time Status CERVICAL SPINE WO CONTRAST [CT] Stat Exams 07/29/19 15:52 Completed HEAD WITHOUT CONTRAST [CT] Stat Exams 07/29/19 15:52 Completed Medication Summary Discontinued Medications Generic Name Dose Route Start Last Admin Trade Name Peterq PRN Reason Stop Dose Admin Diphtheria/Tetanus/Acell Pertussis 0.5 ml 07/29/19 15:53 07/29/19 16:35 Adacel Vial IM 07/29/19 15:54 Not Given .ONCE ONE - Progress Progress: pain not gone completely, re-examined Progress Note: 07/29/19 69 years old is evaluated for ground-level fall with a contusion to the left temporal parietal area. Patient is offered pain medication but refused. I have obtained CT head and neck which are negative for any acute findings. Tetanus is updated. No injury anywhere else. Patient might have some element of concussion and given instructions for that. Patient has nonfocal neuro exam otherwise. At this point I do not think patient needs any further work-up and is stable for discharge. 16:54 Counseled pt/family regarding: diagnosis, need for follow-up, rad results - Departure Departure Disposition: Home Clinical Impression: Scalp contusion Qualifiers: Encounter type: initial encounter Qualified Code(s): S00.03XA - Contusion of scalp, initial encounter Concussion Qualifiers: Encounter type: initial encounter Loss of consciousness presence/duration: with LOC of 30 min or less Qualified Code(s): S06.0X1A - Concussion with loss of consciousness of 30 minutes or less, initial encounter Condition: Stable Critical Care Time: No Referrals: MAIDA MARINO MD [Primary Care Provider] - (1-2 days for re evaluation) Instructions: Concussion, Adult (DC), Contusion (DC) Additional Instructions: Stay with a responsible person for next 24 to 48 hours. Take Tylenol as needed only. Follow-up with primary care physician for reevaluation. Follow instructions for head injury/concussion and return to ER for any worsening.
--- NOTE | 2019-07-29 16:15 | XRAY ---
Indication: Head injury following fall. Multiple contiguous axial images obtained through the head without contrast. Comparison: November 27, 2017. Again normal appearing brain parenchyma, ventricles, and bony calvarium. Visualized paranasal sinuses and mastoid air cells are clear. Impression: Continued normal CT head without contrast exam.
--- NOTE | 2019-07-29 16:21 | XRAY ---
Indication: Head injury following fall. Multiple contiguous axial images obtained through the cervical spine. Sagittal and coronal reformatted images obtained. Comparison: May 20, 2017. Axial images again negative for acute fracture, suspicious bony lesions, or spinal canal stenosis. Stable mild/moderate multilevel endplate spurring, bilateral degenerative facet hypertrophy, and atlantoaxial degenerative arthropathy. Sagittal and coronal reformatted images demonstrates stable C3-C6 disc space loss. Again no acute compression fracture, subluxation, or jumped facet. Normal-appearing craniocervical junction. Visualized noncontrasted soft tissues again demonstrates mild carotid calcifications bilaterally. Lung apices remain clear. Impression: 1. Continue negative acute fracture/subluxation. 2. Again incidental multilevel degenerative changes.
[2019-07-29 16:55] VITALS: BP 166/90; PULSE 77; O2SAT 97
== END 2019-07-29 17:01 | disposition home or self-care (01) ==
LOC: ED 15:35
DX: S00.03XA Contusion of scalp, initial encounter (principal); S00.83XA Contusion of other part of head, initial encounter; S06.0X1A Concussion with loss of consciousness of 30 minutes or less, initial encounter; W11.XXXA Fall on and from ladder, initial encounter; Y93.89 Activity, other specified; Y92.89 Other specified places as the place of occurrence of the external cause; G40.89 Other seizures
CPT/HCPCS: 70450; 72125; 99283

== ENCOUNTER 2020-08-20 06:16 | Day surgery (SDC) | payer MEDICARE, OTHER ==
[2020-08-20] MEDS ORDERED: BUPIVACAINE 0.5% VIAL IJ ONE (06:39)
[2020-08-20] MEDS ORDERED: XYLOCAINE 1% HCL 20 ML MDV ONE (06:39)
[2020-08-20] MEDS: Lactated Ringers 1,000 ML IV SCH (06:49)
[2020-08-20] MEDS: CEFAZOLIN 2 GM-D5W BAG** 2 GM/50 ML ML IV SCH (06:50)
[2020-08-20 07:12] LABS: ALKALINE PHOSPHATASE 105 U/L (38-126); BLOOD UREA NITROGEN 27 mg/dL (9-20); CHLORIDE 104 mmol/L (98-107); Carbon Dioxide 27 mmol/L (22-30); Creatinine 1 1.25 mg/dL (0.66-1.25); EST GLOMERULAR FILTRATION RATE > 60.0 ML/MIN; Glucose 84 mg/dL (74-106); SGOT/AST 28 U/L (17-59); SGPT/ALT 22 U/L (0-50); SODIUM 138 mmol/L (137-145); Total Protein 6.5 g/dL (6.3-8.2)
[2020-08-20] MEDS ORDERED: Versed 2 MG/2 ML Injection ONE (08:18)
[2020-08-20] MEDS ORDERED: SUBLIMAZE 100 MCG/2 ML ONE ×3 (08:19→14:00)
[2020-08-20] MEDS ORDERED: Naropin 0.5% 30 ML VIAL ONE (08:20)
[2020-08-20] MEDS ORDERED: Xylocaine-Mpf 2% 5 Ml Vial ONE (08:21)
[2020-08-20] MEDS ORDERED: Zemuron 100 MG/10 ML ONE ×2 (08:28→09:27)
[2020-08-20] MEDS ORDERED: DIPRIVAN 200 MG/20 ML IV ONE (08:28)
[2020-08-20 08:41] LABS: Barbiturate,Urine NEGATIVE (NEGATIVE); Benzodiazepine,Urine NEGATIVE (NEGATIVE); Cocaine,Urine NEGATIVE (NEGATIVE); Methadone,Urine NEGATIVE (NEGATIVE); Opiate,Urine NEGATIVE (NEGATIVE); PCP,Urine NEGATIVE (NEGATIVE); THC,Urine NEGATIVE (NEGATIVE)
[2020-08-20 09:04] LABS: Amphetamine,Urine POSITIVE (NEGATIVE)
[2020-08-20] MEDS ORDERED: BRIDION 200MG/2ML IV ONE (13:26)
--- NOTE | 2020-08-20 13:36 | XRAY ---
Indication: Hardware removal. Intraoperative fluoroscopy provided for 2 minutes 35 seconds. 7 digital spot images submitted for interpretation demonstrates 1st MTP arthrodesis with intact anterior fusion plate/screws. Also intact orthopedic K wires traverse 1st metatarsal phalanx and 2nd/3rd phalanges. Correlate with intraoperative findings/report.
[2020-08-20] MEDS ORDERED: Hydromorphone 1 mg/ml Injection ONE (14:00)
[2020-08-20] MEDS ORDERED: Zofran 4 MG/2 ML VIAL ONE (14:22)
[2020-08-20 15:04] LABS: Appearance CLEAR (CLEAR); Bilirubin NEGATIVE (NEGATIVE); Blood NEGATIVE Ery/ul (0-5); Glucose NEGATIVE (NEGATIVE); Ketones NEGATIVE (NEGATIVE); Leukocyte Esterase NEGATIVE (NEGATIVE); Mucus SLIGHT /HPF (NEGATIVE); Nitrite NEGATIVE (NEGATIVE); Protein,Urine Dip NEGATIVE (Negative); RBC 0-2 /HPF (0-2); Specific Gravity 1.023 (1.005-1.025); Urobilinogen 2 mg/dL (0-1)
[2020-08-20 15:07] LABS: Bacteria NONE SEEN /HPF (NEGATIVE)
[2020-08-20 15:38] VITALS: O2SAT 96
[2020-08-20 15:55] VITALS: BP 138/80; PULSE 68
--- NOTE | 2020-08-20 15:55 | OP ---
SURGERY DATE/TIME: 08/20/2020 0830 PREOPERATIVE DIAGNOSIS: Pain right foot, painful retained hardware right foot, nonunion first metatarsophalangeal joint right foot, difficulty with ambulation, acquired foot deformity. POSTOPERATIVE DIAGNOSIS: Pain right foot, painful retained hardware right foot, nonunion first metatarsophalangeal joint right foot, difficulty with ambulation, acquired foot deformity. PROCEDURES: 1) Hardware removal. 2) Resection of nonunion. 3) Revision first metatarsophalangeal joint arthrodesis with bone block. 4) Bone marrow aspiration from calcaneus. 5) Hammer toe correction of digits two and three. SURGEON: Axel Rodrigez DPM. DIRECTOR OF PUPIL PERSONNEL PROGRAM: None. ANESTHESIA: General plus popliteal block. See anesthesia notes for details. HEMOSTASIS: Thigh tourniquet set to 350 mm of Mercury for a total of 120 minutes total tourniquet time. ESTIMATED BLOOD LOSS: Less than 200 cc. MATERIALS: [place] [employer]omet Stratum 8-hole straight plate with one 2.7 - 10 mm locking screw, one 3.5 - 18 mm locking screw, two - 3.5 - 18 mm nonlocking screws, two - 0.062 K-wires and one 2.0 K-wire and an Allograft wedge 2.2 - 0 Vicryl, 4-0 Monocryl, 3-0 Nylon. INJECTABLES: See anesthesia notes for preoperative popliteal block details. INDICATION FOR SURGERY: Houston Carranza is a very pleasant 70 year-old male who presented in April of this last year, 2020, for preoperative assessment where he was eager to proceed with surgical intervention regarding his right foot. He had multiple procedures by multiple other providers, the first of which being a first metatarsophalangeal joint Silastic implant which needed a revision and resulted in an additional failure of that surgery. An attempt at an arthrodesis was made in 2018 however, this also failed resulting in a painful nonunion for the patient as well as over the course of multiple surgeries resulted in an extremely painful nonunion and a significantly shortened first ray. The patient presented that day wanting surgery immediately. However being that he is a diabetic, he was instructed that he would need to get his hemoglobin A1C to 7 and had obtained vascular studies. At this time his vascular study demonstrated adequate ankle-brachial index and triphasic Doppler and he has worked very hard to get his hemoglobin A1C down to 7.12 which is very close to my operative goal for diabetics. At this time we decided to proceed with surgical intervention. The patient understands there are some variables that change the course of surgery interoperatively and understands this may affect his final weightbearing status postoperatively as well as outcome. The patient understands all the risks and benefits. The patient was also instructed prior to the surgery that due to the fact this is his fourth revision, there is a high relative potential for loss of the great toe due to the significant scar tissue and loss of vascularization to the area. The patient accepts this risk at this time and wishes to proceed. He understands all the risks, benefits and complications of surgical intervention which we discussed in depth. Plenty of time was allowed for the patient to ask questions prior to surgical intervention and they were answered to the patient's apparent satisfaction and it is with this we proceeded with surgical intervention. DESCRIPTION OF PROCEDURE AND FINDINGS: The patient was brought into the postoperative anesthesia care unit after being screened in the preoperative area for a popliteal block. See anesthesia notes for details. Following this the patient was brought into the OR and placed on the OR table in the supine position. After this a well-padded thigh tourniquet was applied to the right lower extremity and a Walton was placed after the patient was sedated with general anesthesia from our anesthesia team. At this time the right lower extremity was then prepped and draped in the typical sterile fashion and the right lower extremity was lowered onto the surgical field. At this time a skin marker was utilized to draw out incision planning for the first part of the procedure which was removal of the hardware. Prior to the procedure the plate was determined to be a Prakash Morgan Plate with a T8 Star construction driver which was identified on the preoperative x-rays. At this time the tourniquet was inflated and Esmarch was utilized to exsanguinate the leg and the tourniquet was inflated. At this time attention was directed to the dorsal aspect of the first metatarsophalangeal joint where incision was made down to the plate so as not to devascularize any remaining structures due to the significant amount of scar tissue. At this time the scar tissue was reflected both medially and laterally off the plate surface and the screws were identified and removed with the T8 construction driver. At this time under fluoroscopy the site was checked for any remaining hardware. There was one break in screw at the proximal aspect of the incision site as well as a broken screw at the distal site of the incision in the proximal phalanx. At this time the site for the planned resection of the nonunion was marked out under fluoroscopy this was done in a live fashion where the nonunion was manipulated in order to see where the majority of the nonunion was. We were cautious not to over resect and leave a significantly larger gap than when we began. At this time sagittal saw was utilized to resect the portions of bone proximally and distally to the nonunion site. At this time the intramedullary canal appeared to have a PRO-DENSE like substance in the intramedullary canal which blocked vascular ingrowth of the potential graft that was to be placed. At this time this was drilled out using a 2-0 K-wire at the proximal phalanx and the remaining metatarsal. At this time the tourniquet was let down in order to check for healthy bleeding within the medullary cavity which was observed. At this time with the tourniquet down, the intramedullary cavity as well as the remaining courses of bone were prepped in the typical fashion of arthrodesis utilizing a combination of a 2-0 mm drill, curette, osteotome and a mallet in order to fenestrate fish scale and break through the subchondral plate. At this time healthy bleeding was noted at both the proximal and distal fusion sites. Prior to preparing the joint for fusion, the remaining PRO-DENSE in medullary cavities were flushed with sterile saline. After the joints were prepped, a laminar africana studies professor was placed into the deficit and distracted out to a length where there would be no vascular compromise however spanning the site of the fracture. At this time it measured out to be approximately 25 mm. At this time the decision was made intraoperatively to forego the Autograft of the calcaneus and proceed with the Allograft placement instead. The tourniquet was still down at this time so bone marrow aspirate was obtained from the right calcaneus, 60 cc total which was spun down outside of the wound for platelet enriched plasma. At this time the Allograft was then soaked in the platelet rich plasma for 10 minutes and the graft was then cut down to size measuring approximately 22 mm in length by 13 mm in length and 15 mm in depth. At this time the graft was placed into the surgical site and determined to be adequate for bony arthrodesis. At this time a K-wire was anterograded through the great toe through the graft and into the medullary cavity of the first metatarsal this position was checked under fluoroscopy and deemed to be adequate. At this time attention was then directed to the dorsal aspect of the fusion site where trial 8-hole [place] Biomet Stratum Plate was placed and deemed to be adequate in order to fixate. At this time the Stratum Plate was placed distal were drilled first and placed into the drill holes. A distal nonlocking screw was placed first. Following this a right compression was applied through the central hole most proximal aspect of the plate. At this time the remaining holes were filled with a combination of locking and nonlocking screws measuring 2.7 - 10 mm locking, 3.5 - 18 mm locking screw, 3.5 - 18 nonlocking screw x2. At this time this was deemed to be adequate having three points of fixation at minimum on either side. Following this, this was checked under fluoroscopy and deemed to be adequate. Following this there appeared to be some gap in the dorsal aspect of the fusion sites between the graft and the proximal phalanx which was filled with the remaining cancellous Allograft chips this was then checked under fluoroscopy and deemed to be adequate. Following this the second and third proximal interphalangeal joints were resected after being dissected out with a 15 blade in a transverse-type fashion. These joints were resected out utilizing a sagittal saw shortening the second and third digits. At this time a 0.062 K-wire was retrograded out of the distal aspect of both the middle and distal phalanx and then retrograded down to the base of the proximal phalanx under fluoroscopy in adequate apposition. At this time a superficial flush was performed to all incision sites. The tourniquet was dropped at 120 mm of Mercury in order to promote internal flushing of the wounds as well as assess for active bleeders. At this time 4-0 Monocryl was utilized to close the capsule over the plate of the first metatarsophalangeal joint. The 2-0 Vicryl was utilized at areas of higher tension subcutaneously in order to coapt the skin edges. Following this 3-0 Nylon was utilized to coapt the skin edges in an inverted type fashion with alternating horizontal mattress and simple interrupted and simple interrupted for the first metatarsophalangeal joint revision union and simple interrupted over the hammer toe corrections. The K-wires were bent at this time and caps were placed. The foot was cleansed with sterile saline and then dried. Betadine and Adaptic were applied to the incision sites and a dressing consisting of 4x4, Kerlix and a very well-padded Lorenzana compression dressing and posterior splint were applied to the right leg. The patient was then reversed from anesthesia and brought into the postoperative anesthesia care unit with vascular status intact and vital signs stable. The patient handled the anesthesia as well as the procedure without complication. Postoperative orders as indicated in the patient's chart.
--- NOTE | 2020-08-24 14:39 | XRAY ---
2 minutes and 35 seconds of fluoroscopy was used in surgery for a right foot hardware removal, bone block arthrodesis of 1st MTP joint, calcaneal autograft, and hammer toe correction of 2nd and 3rd digit.
== END 2020-08-20 16:10 | disposition home or self-care (01) ==
LOC: SDC 06:16
PROVIDERS: ATTEND Podiatrist Foot & Ankle Surgery
DX: T84.84XA Pain due to internal orthopedic prosthetic devices, implants and grafts, initial encounter (principal); M77.41 Metatarsalgia, right foot; M96.0 Pseudarthrosis after fusion or arthrodesis; M79.671 Pain in right foot; E11.9 Type 2 diabetes mellitus without complications; I10 Essential (primary) hypertension; Z79.899 Other long term (current) drug therapy; B19.20 Unspecified viral hepatitis C without hepatic coma
CPT/HCPCS: 20680; 28285; 28322; 28750; 36415; 38220; 64450; 73630; 76000; 76942; 80053; 80307; 81001; 82947; 87086; 88304; 88311; 99100; J0690; J1170; J2250; J2405; J2704; J2795; J3010

== ENCOUNTER 2020-10-09 08:58 | Emergency (ER) | payer MEDICARE, OTHER ==
[2020-10-09 09:14] VITALS: PULSE 94
--- NOTE | 2020-10-09 09:14 | ERPHSYRPT ---
- History of Present Illness Time Seen by Provider: 10/09/20 09:14 Source: patient Patient Subjective Stated Complaint: R foot pain after fall on 10/07/20 Triage Nursing Assessment: pt to ED c/o R foot pain after mechanical fall on 10/07/20. R foot in cast from August 20, procedure done - toes parially amputated and joint removed, hardware placed. pt states since fall he is experiencing more pain and problems with R foot as well as cast than he was previously. rates 6/10 pain now. Physician History: This is a 70-year-old white male who is diabetic and has a history of hypertension and underwent a right foot surgery by Dr. Reyna in mid August. 2 days ago, patient tripped over a ladder in his barn injuring the right foot. Patient appears to have been noncompliant with his activity. He has been up and walking and moving around in a dirty environment including mowing his yard and cleaning up his barn. He did state that he tried to keep the cast area free of dirt but it was difficult to do so. Patient was originally placed on postope rative antibiotics. He used his last pain medication of hydrocodone 2 days ago. He is concerned he may have reinjured toes that have been operated on. He does have metallic pins in toes and metal in his right foot from his relatively recent surgery. He sees Dr. Reyna on 10/12/2020. Method of Injury: fell (Tripped) Occurred: days ago (2) Quality: aching Severity of Pain-Max: moderate Severity of Pain-Current: mild (To moderate) Lower Extremities Pain: foot: right Modifying Factors: Improves With: movement Associated Symptoms: other (Patient is supposed to be using crutches and apparently not be ambulating. He supposed to have his right leg elevated above level of his heart.) Allergies/Adverse Reactions: No Known Drug Allergies Allergy (Verified 10/09/20 09:14) Home Medications: Tamsulosin HCl 0.4 mg [Flomax 0.4 MG] 0.4 mg PO QAM 10/06/16 [History] ALPRAZolam 1 MG [Xanax 1 mg] 1 mg PO TID PRN 10/31/17 [History] Omeprazole 20 MG [Prilosec 20 mg] 20 mg PO QAM 10/31/17 [History] lisinopriL [Prinivil] 10 mg PO QAM 10/31/17 [History] raNITIdine HCl [Zantac] 300 mg PO QAM 10/31/17 [History] Aspirin 81 mg PO HS 11/27/17 [History] Insulin Glargine,Hum.rec.anlog [Lantus] 50 unit SQ DAILY 07/29/19 [History] Metformin HCl 500 mg [Glucophage 500 MG] 500 mg PO BIDWM 07/29/19 [History] Atorvastatin Calcium [Lipitor] 20 mg PO QHS 08/02/20 [History] Diclofenac Sodium Gel [Voltaren GEL] 100 gm TP QID 08/02/20 [History] Pioglitazone 30 mg [Actos 30 MG] 30 mg PO DAILY 08/02/20 [History] Hx Tetanus, Diphtheria Vaccination/Date Given: Yes (4 years ago) Hx Influenza Vaccination/Date Given: Yes Hx Pneumococcal Vaccination/Date Given: No Immunizations Up to Date: Yes Travel Risk - International Travel Have you traveled outside of the country in past 3 weeks: No - Coronavirus Screening Are you exhibiting any of the following symptoms?: No Close contact with a COVID-19 positive Pt in past 14-21 Days: No - Vaccine Status Have you recieved a Covid-19 vaccination: Yes 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 - Vaccination Dates Date of 2cond Vaccination (if applicable): 2-3 months ago - Review of Systems Constitutional: No Symptoms Eyes: No Symptoms Ears, Nose, & Throat: No Symptoms Respiratory: No Symptoms Cardiac: No Symptoms Abdominal/Gastrointestinal: No Symptoms Genitourinary Symptoms: No Symptoms Musculoskeletal: Fall, Injury (Right foot postoperative site) Skin: No Symptoms Neurological: No Symptoms Psychological: No Symptoms Endocrine: No Symptoms Hematologic/Lymphatic: No Symptoms Immunological/Allergic: No Symptoms All Other Systems: Reviewed and Negative - Past Medical History Pertinent Past Medical History: Yes Neurological History: Peripheral Neuropathy ENT History: No Pertinent History Cardiac History: High Cholesterol, Hypertension Respiratory History: No Pertinent History Endocrine Medical History: Diabetes Type II Musculoskeletal History: Arthritis, Fractures GI Medical History: GERD, Other History: No Pertinent History Psycho-Social History: Anxiety Male Reproductive Disorders: Prostate Problems Other Medical History: Rotator Cuff Repair (R) approx 4-6 years ago. Back surgery (fusion of lumbar spine) approx 9 years ago. Rotator Cuff Repair (L) approx 4-6 years ago. R D1 toe joint surgery x3 approx 1.5 years ago - Past Surgical History Past Surgical History: Yes Neuro Surgical History: No Pertinent History Cardiac: Cardiac Catheterization Respiratory: No Pertinent History Gastrointestinal: No Pertinent History, Other Genitourinary: No Pertinent History Musculoskeletal: Orthopedic Surgery Male Surgical History: No Pertinent History Other Surgical History: BILATERAL ROTOR CUFF, BACK-"fusion of lower back area", RIGHT Knee arthroscopy with "clean up",heart cath " 5 or more yrs ago". several liver biopsies. skin cancer removed from head - Social History Smoking Status: Never smoker Exposure to second hand smoke: No Drug Use: marijuana Patient Lives Alone: Yes - Nursing Vital Signs Nursing Vital Signs: Initial Vital Signs Temperature 97.5 F 10/09/20 09:04 Pulse Rate 94 H 10/09/20 09:04 Respiratory Rate 20 10/09/20 09:04 Blood Pressure 169/102 10/09/20 09:04 O2 Sat by Pulse Oximetry 100 10/09/20 09:04 Pain Scale Pain Intensity 5 - Physical Exam General Appearance: no apparent distress, alert, anxiety Eyes, Ears, Nose, Throat Exam: normal ENT inspection, moist mucous membranes Neck Exam: normal inspection, non-tender, supple, full range of motion Cardiovascular/Respiratory Exam: chest non-tender, no respiratory distress Gastrointestinal/Abdominal Exam: non-tender Back Exam: normal inspection, normal range of motion, No CVA tenderness, No vertebral tenderness Hips Exam: bilateral: non-tender, normal inspection, normal range of motion, no evidence of injury Legs Exam: bilateral leg: non-tender, normal inspection, normal range of motion, no evidence of injury Knees Exam: bilateral knee: non-tender, normal inspection, normal range of motion, no evidence of injury Ankle Exam: right ankle: other (Patient has a below the knee, ankle and foot cast with distal opening), left ankle: non-tender, normal inspection, normal range of motion, no evidence of injury Foot Exam: right foot: pain (Right foot lateral aspect. The foot is very dirty from exposure to mild and grass. Patient has surgical metallic pins sticking out from toes. There is no redness there is no pus. There is no evidence of cellulitis. The metallic pins appear to be in place.), left foot: non-tender, normal inspection, normal range of motion, no evidence of injury Neuro/Tendon Exam: responds to pain (Difficult to completely assess since he is in a cast and has surgical metallic pins and bone of toes) Mental Status Exam: alert, oriented x 3, cooperative Skin Exam: normal color, warm, dry, other (Patient has grass and dirt debris) SpO2 Interpretation: normal SpO2: 100 O2 Delivery: Room Air - Course Nursing assessment & vital signs reviewed: Yes Ordered Tests: Active Orders 24 hr Category Date Time Status FOOT (MINIMUM 3 VIEWS) Stat Exams 10/09/20 09:15 Taken - Progress Progress: unchanged, pain not gone completely, re-examined Progress Note: 10/09/20 10:36 X-ray right foot was read by [facility]. There are no acute fractures. The hardware is in the appropriate position. There are no acute fractures or dislocations appreciated. There are postoperative changes as expected. Counseled pt/family regarding: diagnosis, need for follow-up, rad results - Departure Departure Disposition: Home Clinical Impression: Right foot pain, Fall with no significant injury Condition: Stable Critical Care Time: No Referrals: MAIDA MARINO MD [Primary Care Provider] - Additional Instructions: Nonweightbearing right foot. Keep your right foot elevated above the level of your heart. Use the crutches as prescribed. Keep out of mild in grass and other debris. Take your medications as prescribed. Keep your appointment Dr. Reyna on 10/12/2020 Prescriptions: Cephalexin Mh 500 mg [Keflex 500 mg] 500 mg PO TID #21 capsule Hydrocodone/APAP 5/325 [[place] 5/325 mg] 1 each PO Q8H PRN #10 tablet MDD 3 PRN Reason: Pain
[2020-10-09 11:10] VITALS: BP 150/72; O2SAT 97
--- NOTE | 2020-10-09 19:38 | XRAY ---
Indication: Pain following fall. Comparison: September 21, 2020. 3 nonweightbearing views right foot unchanged again demonstrating overlying casting material with 1st metatarsal phalangeal/2nd phalangeal/3rd phalangeal fusion with intact hardware and scattered vascular calcifications. Again old 1st metatarsal screw fracture. No new/acute abnormalities. Comment: Preliminary interpretation made by [facility]. No critical discrepancy.
== END 2020-10-09 11:09 | disposition home or self-care (01) ==
LOC: ED 08:58
DX: M79.671 Pain in right foot (principal); W01.0XXA Fall on same level from slipping, tripping and stumbling without subsequent striking against object, initial encounter; Y93.01 Activity, walking, marching and hiking; Y92.71 Barn as the place of occurrence of the external cause; I10 Essential (primary) hypertension; E11.9 Type 2 diabetes mellitus without complications; Z79.4 Long term (current) use of insulin
CPT/HCPCS: 73630; 99283

== ENCOUNTER 2022-06-28 18:09 | Observation (INO) | payer MEDICARE, OTHER ==
[2022-06-28] MEDS: Sodium Chloride 0.9% 1000 ML 1,000 ML IV SCH (18:48)
[2022-06-28 18:59] LABS: Absolute Neutrophil Ct (ANC) 7.77 x10^3/uL (1.4-6.9); BASOPHIL % 0.2 % (0.0-0.4); Basophil (Absolute #) 0.02 x10^3/uL (0-0.4); Eosinophil % 0.6 % (0.00-5.0); Eosinophil (Absolute #) 0.06 x10^3/uL (0-0.5); Hematocrit 38.3 % (42-50); Hemoglobin 12.3 g/dL (12.5-18.0); IMMATURE GRAN # 0.04 x10^3u/L (0.00-0.03); IMMATURE GRAN % 0.4 % (0.00-0.4); Lymphocyte (Absolute #) 0.85 x10^3/uL (1.0-4.6); Lymphocytes % 9.1 % (24.0-44.0); Mean Cell Volume 84.5 fL (78-100); Mean Corpuscular Hemoglobin 27.2 pg (26-32); Mean Corpuscular Hgb Concent. 32.1 g/dL (32-36); Monocyte (Absolute #) 0.58 x10^3/uL (0.0-1.3); Monocytes % 6.2 % (0.0-12.0); Neutrophil % 83.5 % (36.0-66.0); Platelet Count 167 x10^3/uL (150-450); Red Blood Count 4.53 x10^6/uL (4.1-5.6); Red Cell Distribution Width 13.1 % (11.5-14.0); White Blood Count 9.3 x10^3/uL (4.0-10.5)
--- NOTE | 2022-06-28 19:21 | ERPHSYRPT ---
- History of Present Illness Time Seen by Provider: 06/28/22 18:35 Source: patient Exam Limitations: no limitations Patient Subjective Stated Complaint: PT HERE FOR LOW BLOOD SUGAR TODAY , HE FELL OUR OFF A BUCKET OUTSIDE TODAY, BLODD SUGAR LOW AND WAS GIVEN D5O BS PER EMS 167 NOW Triage Nursing Assessment: PT ANSWERS QUESTIONS CORRECTLY BUT SLEEPY , RESP EASY, SKIN W/D/P, NO EDEMA NOTED. MOVES ALL EXT WELL Physician History: Patient is a 72-year-old male presents to our ED via EMS for evaluation of altered mental status. Patient's family member is a RN. He believes patient may have experienced an episode of hypoglycemia. Although we do not have any objective record of hypoglycemia. Patient has poor recollection of the incident prior to arrival. However it was reported that patient was sitting on a cooler and fell towards his right side. Patient has poor recollection of his fall. Patient complained of some shoulder pain upon arrival. Patient has a very superficial skin tear in his right elbow. No elbow pain. Patient denies chest pain. No nausea vomiting or diaphoresis. Family reports that patient is somewhat somnolent. They feel this is not normal. Family voices no other complaints at this time. Patient's son-in-law served as independent historian. Patient unable to provide detailed due to some degree of confusion and altered sensorium Portions of this note were created with voice recognition technology. There may be grammatical, spelling, punctuation or sound alike errors Timing/Duration: today Severity: moderate Modifying Factors: Improves With: nothing Associated Symptoms: denies symptoms Allergies/Adverse Reactions: No Known Drug Allergies Allergy (Verified 06/28/22 18:15) Home Medications: Tamsulosin HCl 0.4 mg [Flomax 0.4 MG] 0.4 mg PO QAM 10/06/16 [History] ALPRAZolam 1 MG [Xanax 1 mg] 1 mg PO TID PRN 10/31/17 [History] Omeprazole 20 MG [Prilosec 20 mg] 20 mg PO QAM 10/31/17 [History] lisinopriL [Prinivil] 10 mg PO QAM 10/31/17 [History] Aspirin 81 mg PO HS 11/27/17 [History] Insulin Glargine,Hum.rec.anlog [Lantus] 50 unit SQ DAILY 07/29/19 [History] Metformin HCl 500 mg [Glucophage 500 MG] 500 mg PO BIDWM 07/29/19 [History] Atorvastatin Calcium [Lipitor] 20 mg PO QHS 08/02/20 [History] Diclofenac Sodium Gel [Voltaren GEL] 100 gm TP QID 08/02/20 [History] Pioglitazone 30 mg [Actos 30 MG] 30 mg PO DAILY 08/02/20 [History] Hx Tetanus, Diphtheria Vaccination/Date Given: Yes (4 years ago) Hx Influenza Vaccination/Date Given: Yes Hx Pneumococcal Vaccination/Date Given: No Immunizations Up to Date: Yes Travel Risk - International Travel Have you traveled outside of the country in past 3 weeks: No - Coronavirus Screening Are you exhibiting any of the following symptoms?: No Close contact with a COVID-19 positive Pt in past 14-21 Days: No - Vaccine Status Have you recieved a Covid-19 vaccination: Yes Front Attendant: Moderna - Vaccination Dates Date of 2cond Vaccination (if applicable): 2-3 months ago - Review of Systems Constitutional: No Symptoms, No Fever, No Chills Eyes: No Symptoms Ears, Nose, & Throat: No Symptoms Respiratory: No Symptoms, No Cough, No Dyspnea Cardiac: No Symptoms, No Chest Pain, No Edema, No Syncope Abdominal/Gastrointestinal: No Symptoms, No Abdominal Pain, No Nausea, No Vomiting, No Diarrhea Genitourinary Symptoms: No Symptoms, No Dysuria Musculoskeletal: No Symptoms, No Back Pain, No Neck Pain Skin: No Symptoms, No Rash Neurological: No Symptoms, No Dizziness, No Focal Weakness, No Sensory Changes Psychological: No Symptoms Endocrine: No Symptoms Hematologic/Lymphatic: No Symptoms Immunological/Allergic: No Symptoms All Other Systems: Reviewed and Negative - Past Medical History Pertinent Past Medical History: Yes Neurological History: Peripheral Neuropathy ENT History: No Pertinent History Cardiac History: High Cholesterol, Hypertension Respiratory History: No Pertinent History Endocrine Medical History: Diabetes Type II Musculoskeletal History: Arthritis, Fractures GI Medical History: GERD, Other History: No Pertinent History Psycho-Social History: Anxiety Male Reproductive Disorders: Prostate Problems Other Medical History: Rotator Cuff Repair (R) approx 4-6 years ago. Back surgery (fusion of lumbar spine) approx 9 years ago. Rotator Cuff Repair (L) approx 4-6 years ago. R D1 toe joint surgery x3 approx 1.5 years ago - Past Surgical History Past Surgical History: Yes Neuro Surgical History: No Pertinent History Cardiac: Cardiac Catheterization Respiratory: No Pertinent History Gastrointestinal: No Pertinent History, Other Genitourinary: No Pertinent History Musculoskeletal: Orthopedic Surgery Male Surgical History: No Pertinent History Other Surgical History: BILATERAL ROTOR CUFF, BACK-"fusion of lower back area", RIGHT Knee arthroscopy with "clean up",heart cath " 5 or more yrs ago". several liver biopsies. skin cancer removed from head - Social History Smoking Status: Never smoker Exposure to second hand smoke: No Drug Use: marijuana Patient Lives Alone: Yes - Nursing Vital Signs Nursing Vital Signs: Initial Vital Signs O2 Sat by Pulse Oximetry 97 06/28/22 18:19 Pain Scale Pain Intensity 0 - Physical Exam General Appearance: no apparent distress, alert Eye Exam: PERRL/EOMI, eyes nml inspection Ears, Nose, Throat Exam: normal ENT inspection, TMs normal, pharynx normal, moist mucous membranes Neck Exam: normal inspection, non-tender, supple, full range of motion Respiratory Exam: normal breath sounds, lungs clear, No respiratory distress Cardiovascular Exam: regular rate/rhythm, normal heart sounds, normal peripheral pulses Gastrointestinal/Abdomen Exam: soft, normal bowel sounds, No tenderness, No mass Back Exam: normal inspection, normal range of motion, No CVA tenderness, No vertebral tenderness Extremity Exam: normal inspection, normal range of motion, pelvis stable, other (Superficial right forearm abrasion) Neurologic Exam: alert, oriented x 3, cooperative, normal mood/affect, nml cerebellar function, nml station & gait, sensation nml, No motor deficits Skin Exam: normal color, warm, dry, No rash Lymphatic Exam: No adenopathy SpO2 Interpretation: normal SpO2: 97 O2 Delivery: Room Air - Course Nursing assessment & vital signs reviewed: Yes EKG Interpreted by Me: RATE (66), Sinus Rhythm, NORMAL AXIS, NORMAL INTERVALS (T wave inversions laterally.) - Radiology Exams Shoulder X-ray Interpretation: Interpreted by me (No fracture dislocations. Osteopenia. Degenerative changes observed) Chest X-ray Interpretation: Interpreted by me (Negative chest x-ray) - CT Exams Head CT Interpretation: Tele-radiologist Report (Continued normal head compared to 07/29/2019) Ordered Tests: Active Orders 24 hr Category Date Time Status Prepress Stripper STAT Care 06/28/22 18:13 Active EKG-ER Only STAT Care 06/28/22 18:13 Active IV Insertion STAT Care 06/28/22 18:13 Active Pulse Oximetry (ED) STAT Care 06/28/22 18:13 Active CHEST 1 VIEW (PORTABLE) Stat Exams 06/28/22 18:[address] ANGIOGRAPHY NECK [CT] Stat Exams 06/28/22 20:47 Ordered CTA HEAD W AND/OR WO CONTRAST [CT] Stat Exams 06/28/22 20:47 Ordered HEAD WITHOUT CONTRAST [CT] Stat Exams 06/28/22 18:15 Taken SHOULDER Stat Exams 06/28/22 18:22 Taken CBC W DIFF Stat Lab 06/28/22 18:50 Completed CMP Stat Lab 06/28/22 18:50 Completed ETHYL ALCOHOL Stat Lab 06/28/22 18:50 Completed MAGNESIUM Stat Lab 06/28/22 18:50 Completed NT PRO BNPII Stat Lab 06/28/22 18:50 Completed TROPONIN Q4H Lab 06/28/22 18:50 Completed TROPONIN Q4H Lab 06/28/22 22:15 Ordered TROPONIN Q4H Lab 06/29/22 02:15 Ordered UA W/RFX UR CULTURE Stat Lab 06/28/22 20:37 Ordered Urine Triage Profile Stat Lab 06/28/22 20:37 Ordered Medication Summary Generic Name Dose Route Start Last Admin Trade Name Freq PRN Reason Stop Dose Admin Sodium Chloride 1,000 mls @ 100 mls/hr 06/28/22 18:15 06/28/22 18:48 Sodium Chloride 0.9% 1000 Ml IV 07/28/22 18:14 100 mls/hr .Q10H MARLO Administration Lab/Rad Data: Laboratory Result Diagrams 06/28/22 18:50 06/28/22 18:50 Laboratory Results 06/28/22 06/28/22 06/28/22 Range/Units 18:50 18:50 18:50 WBC (4.0-10.5) x10^3/uL RBC (4.1-5.6) x10^6/uL Hgb (12.5-18.0) g/dL Hct (42-50) % MCV (78-100) fL MCH (26-32) pg MCHC (32-36) g/dL RDW (11.5-14.0) % Plt Count (150-450) x10^3/uL MPV (7.5-11.0) fL Gran % (36.0-66.0) % Immature Gran % (Auto) (0.00-0.4) % Nucleat RBC Rel Count (0.00-0.1) % Eos # (Auto) (0-0.5) x10^3/uL Immature Gran # (Auto) (0.00-0.03) x10^3u/L Absolute Lymphs (auto) (1.0-4.6) x10^3/uL Absolute Monos (auto) (0.0-1.3) x10^3/uL Absolute Nucleated RBC (0.00-0.01) x10^3u/L Lymphocytes % (24.0-44.0) % Monocytes % (0.0-12.0) % Eosinophils % (0.00-5.0) % Basophils % (0.0-0.4) % Absolute Granulocytes (1.4-6.9) x10^3/uL Basophils # (0-0.4) x10^3/uL Sodium 136 L (137-145) mmol/L Potassium 3.6 (3.5-5.1) mmol/L Chloride 102 (98-107) mmol/L Carbon Dioxide 27 (22-30) mmol/L Anion Gap 10.7 (5-15) MEQ/L BUN 19 (9-20) mg/dL Creatinine 1.10 (0.66-1.25) mg/dL Estimated GFR > 60.0 ML/MIN Glucose 137 H (74-106) mg/dL Calcium 8.8 (8.4-10.2) mg/dL Magnesium 1.7 (1.6-2.3) mg/dL Total Bilirubin 1.30 (0.2-1.3) mg/dL AST 37 (17-59) U/L ALT 24 (0-50) U/L Alkaline Phosphatase 133 H (38-126) U/L Troponin I 0.021 (0.000-0.034) ng/mL NT-Pro-B Natriuret Pep 1920 (<300) pg/mL Serum Total Protein 6.5 (6.3-8.2) g/dL Albumin 3.8 (3.5-5.0) g/dL Ethyl Alcohol < 10 (0-10) mg/dL Influenza Type A Ag NEGATIVE (NEGATIVE) Influenza Type B Ag NEGATIVE (NEGATIVE) RSV (PCR) NEGATIVE (NEGATIVE) SARS-CoV-2 (PCR) NEGATIVE (NEGATIVE) 06/28/22 Range/Units 18:50 WBC 9.3 (4.0-10.5) x10^3/uL RBC 4.53 (4.1-5.6) x10^6/uL Hgb 12.3 L (12.5-18.0) g/dL Hct 38.3 L (42-50) % MCV 84.5 (78-100) fL MCH 27.2 (26-32) pg MCHC 32.1 (32-36) g/dL RDW 13.1 (11.5-14.0) % Plt Count 167 (150-450) x10^3/uL MPV 10.0 (7.5-11.0) fL Gran % 83.5 H (36.0-66.0) % Immature Gran % (Auto) 0.4 (0.00-0.4) % Nucleat RBC Rel Count 0.0 (0.00-0.1) % Eos # (Auto) 0.06 (0-0.5) x10^3/uL Immature Gran # (Auto) 0.04 H (0.00-0.03) x10^3u/L Absolute Lymphs (auto) 0.85 L (1.0-4.6) x10^3/uL Absolute Monos (auto) 0.58 (0.0-1.3) x10^3/uL Absolute Nucleated RBC 0.00 (0.00-0.01) x10^3u/L Lymphocytes % 9.1 L (24.0-44.0) % Monocytes % 6.2 (0.0-12.0) % Eosinophils % 0.6 (0.00-5.0) % Basophils % 0.2 (0.0-0.4) % Absolute Granulocytes 7.77 H (1.4-6.9) x10^3/uL Basophils # 0.02 (0-0.4) x10^3/uL Sodium (137-145) mmol/L Potassium (3.5-5.1) mmol/L Chloride (98-107) mmol/L Carbon Dioxide (22-30) mmol/L Anion Gap (5-15) MEQ/L BUN (9-20) mg/dL Creatinine (0.66-1.25) mg/dL Estimated GFR ML/MIN Glucose (74-106) mg/dL Calcium (8.4-10.2) mg/dL Magnesium (1.6-2.3) mg/dL Total Bilirubin (0.2-1.3) mg/dL AST (17-59) U/L ALT (0-50) U/L Alkaline Phosphatase (38-126) U/L Troponin I (0.000-0.034) ng/mL NT-Pro-B Natriuret Pep (<300) pg/mL Serum Total Protein (6.3-8.2) g/dL Albumin (3.5-5.0) g/dL Ethyl Alcohol (0-10) mg/dL Influenza Type A Ag (NEGATIVE) Influenza Type B Ag (NEGATIVE) RSV (PCR) (NEGATIVE) SARS-CoV-2 (PCR) (NEGATIVE) - Progress Progress: improved Progress Note: Case discussed with hospitalist who advises admission. Patient will be admitted for syncope and to rule out stroke. Hospitalist requesting MRI, echocardiogram with bubble study, CTA head and neck. Teleneurology is also requesting EEG. 06/28/22 20:45 72-year-old male presents to our ED with altered mental status, syncope possible hypoglycemia. Patient currently at his baseline. Patient evaluated by teleneurologist who advised admission for further work-up, rule out stroke, TIA. Patient's presentation to our ED is acute. Patient presented via EMS. EMS served as independent historian upon arrival. Patient's son-in-law also provided significant amount of information regarding his visit to our ED. Complexity of problem addressed is moderate. New diagnosis with uncertain prognosis. No critical care time. Complexity of data reviewed and analyzed is moderate. Dr. Chang independently reviewed EKG and laboratory work-up studies. Patient was unable to serve as independent historian. Management was discussed with Dr. Green who accepts admission to observation. Risk of complication and or risk morbidity/mortality patient management is high high. Patient will require hospitalization for further evaluation and treatment. Patient agrees to admission [facility] for further evaluation and treatment. 06/28/22 21:25 X-ray of right shoulder was negative. 06/28/22 21:29 Counseled pt/family regarding: lab results, diagnosis, rad results - Departure Departure Disposition: Observation Clinical Impression: Altered mental status, TIA (transient ischemic attack), Hypoglycemia Condition: Stable Critical Care Time: No Referrals: MAIDA MARINO MD [Primary Care Provider] - Follow up/PCP as directed
[2022-06-28 19:23] LABS: ALBUMIN 3.8 g/dL (3.5-5.0); ALKALINE PHOSPHATASE 133 U/L (38-126); ANION GAP 10.7 MEQ/L (5-15); BLOOD UREA NITROGEN 19 mg/dL (9-20); CHLORIDE 102 mmol/L (98-107); Calcium 8.8 mg/dL (8.4-10.2); Carbon Dioxide 27 mmol/L (22-30); EST GLOMERULAR FILTRATION RATE > 60.0 ML/MIN; ETHYL ALCOHOL < 10 mg/dL (0-10); Glucose 137 mg/dL (74-106); MAGNESIUM 1.7 mg/dL (1.6-2.3); NT PRO BNPII 1920 pg/mL (<300); Potassium 3.6 mmol/L (3.5-5.1); SGOT/AST 37 U/L (17-59); SGPT/ALT 24 U/L (0-50); SODIUM 136 mmol/L (137-145); Total Protein 6.5 g/dL (6.3-8.2)
[2022-06-28 19:36] LABS: INFLUENZA A NEGATIVE (NEGATIVE); INFLUENZA B NEGATIVE (NEGATIVE); RESPIRATORY SYNCTIAL VIRUS NEGATIVE (NEGATIVE); SARS-CoV-2 Xpert Express NEGATIVE (NEGATIVE)
[2022-06-28 21:40] LABS: Appearance Clear (Clear); Bacteria None Seen /HPF (None Seen); Bilirubin Negative (Negative); Blood Negative (Negative); Epithelial Cells None Seen /HPF (None Seen); Glucose, Urine Negative (Negative); Hyaline Casts NONE SEEN /LPF (0-2); Ketones Negative (Negative); Leukocyte Esterase Negative (Negative); Nitrite Negative (Negative); Ph 5.5 (4.6-8.0); Protein,Urine Dip 30 (Negative); RBC 0-2 /HPF (0-5); Specific Gravity 1.015 (1.005-1.030); WBC 0-2 /HPF (0-5)
[2022-06-28 21:44] LABS: ADD URINE CULTURE? NO (NO)
[2022-06-28 21:50] LABS: Barbiturate,Urine NEGATIVE (NEGATIVE); Benzodiazepine,Urine NEGATIVE (NEGATIVE); Cocaine,Urine NEGATIVE (NEGATIVE); Methadone,Urine NEGATIVE (NEGATIVE); Opiate,Urine NEGATIVE (NEGATIVE); PCP,Urine NEGATIVE (NEGATIVE); THC,Urine NEGATIVE (NEGATIVE)
[2022-06-28] MEDS ORDERED: HOLD METFORMIN PRODUCTS FOR 48 HOURS MC SCH (22:00)
[2022-06-28 22:14] LABS: Amphetamine,Urine POSITIVE (NEGATIVE)
--- NOTE | 2022-06-28 23:55 | XRAY ---
CLINICAL HISTORY:Confusion, LVO; COMPARISON:None; TECHNIQUES:CT Angiography of neck was performed with IV contrast. Sagittal and coronal reconstructed images were also obtained. 80 cc Isovue 370 was administered as an intravenous contrast. DLP: 630.72 mGy*cm. CTDI: 34.59 mGy; FINDINGS: The study demonstrates normal aortic arch anatomy and good caliber branches namely right brachiocephalic truck, left common carotid, and left subclavian arteries. Minimal atherosclerotic changes are noted along the arch of the aorta. Both common carotid arteries are normally visualized throughout their course with no constriction or aneurysmal dilatation. The bilateral common carotid arteries bifurcate into external and internal carotid arteries at the level of hyoid bone. A small eccentric calcified plaque is noted at the left bifurcation, it is not resulting in any clinically significant stenosis. A small focus of atherosclerotic calcification is noted at the right bifurcation. Both internal carotid arteries show normal caliber and course through carotid canals. No evidence of stenosis or aneurysmal dilatations. Bilateral vertebral arteries are normally opacified. IMPRESSION: Minimal to mild atherosclerotic changes along bilateral carotid circulations. No evidence of critical stenosis or aneurysmal dilatation. Electronically Signed by: John Duke MD. (06/28/2022 22:49:54 TRAVERTINE INSTALLER)
--- NOTE | 2022-06-28 23:55 | XRAY ---
CLINICAL HISTORY:Confusion, LVO; COMPARISON:None; TECHNIQUES:Contrast CT angiography of head was done in axial sections with coronal and sagittal reconstructions. 80 cc Isovue 370 was administered as an intravenous contrast. CTDI: 16.48 mGy, DLP: 621.66 mGy*cm; FINDINGS: Bilateral intracranial internal carotid arteries show normal caliber and contrast opacification. Small calcified plaques are seen in cavernous portion of right internal carotid artery, causing 10% of reduction in caliber. Bilateral anterior and middle cerebral arteries show normal caliber and contrast opacification. No significant stenosis/occlusion seen. The visualized part of both vertebral arteries are normal in outline. No evidence of aneurysm / A.V.M in the anterior and posterior circulation. Basilar artery is normal in outline and branching into both lining repairer which appear normal. IMPRESSION: 1. No hemodynamically significant stenosis seen in intracranial vessels. 2. Small calcified plaques in cavernous portion of right internal carotid artery, secondary to atherosclerotic disease. Electronically Signed by: John Duke MD. (06/28/2022 22:46:14 INDUSTRIAL MANUFACTURING TECHNICIAN)
[2022-06-29] MEDS: Sodium Chloride 0.9% 1000 ML 1,000 ML IV SCH ×3 (05:55→21:09)
--- NOTE | 2022-06-29 07:56 | PCM.NOTE ---
Date and Time: 06/29/22 0753 Subjective Assessment: patient admitted after an episode of confusion, family apparently suspected low blood sugar. patient does not recall ever feeling bad. he is alert and appropriate this morning Objective Exam General Appearance: no apparent distress Neurologic Exam: alert, oriented x 3, cooperative, bellman II-XII nml as tested, No motor deficits, No sensory deficit Skin Exam: normal color, warm, dry Respiratory Exam: normal breath sounds, lungs clear, No respiratory distress Cardiovascular Exam: regular rate/rhythm, murmur Extremity Exam: normal inspection, normal range of motion OBJECTIVE DATA Vital Signs: Vital Signs - 24 hr Temp Pulse Resp BP Pulse Ox 06/29/22 07:32 98.0 F 67 16 128/60 95 06/29/22 04:00 68 14 06/29/22 00:37 97.5 F 78 16 170/86 97 06/28/22 23:33 77 12 138/98 95 06/28/22 22:43 87 23 152/96 95 06/28/22 21:33 97 06/28/22 21:03 87 18 144/90 97 06/28/22 18:22 97.0 F 78 18 97 06/28/22 18:19 97 Pain Assessment - Last Documented Pain Intensity 0 Intake and Output: Intake & Output 06/26/22 06/27/22 06/28/22 06/29/22 11:59 11:59 11:59 11:59 Intake Total 388 Balance 388 Weight 67.9 kg Lab Results: Lab Results-Last 24 Hours 06/28/22 06/28/22 06/28/22 Range/Units 18:50 18:50 18:50 WBC 9.3 (4.0-10.5) x10^3/uL RBC 4.53 (4.1-5.6) x10^6/uL Hgb 12.3 L (12.5-18.0) g/dL Hct 38.3 L (42-50) % MCV 84.5 (78-100) fL MCH 27.2 (26-32) pg MCHC 32.1 (32-36) g/dL RDW 13.1 (11.5-14.0) % Plt Count 167 (150-450) x10^3/uL MPV 10.0 (7.5-11.0) fL Gran % 83.5 H (36.0-66.0) % Immature Gran % (Auto) 0.4 (0.00-0.4) % Nucleat RBC Rel Count 0.0 (0.00-0.1) % Eos # (Auto) 0.06 (0-0.5) x10^3/uL Immature Gran # (Auto) 0.04 H (0.00-0.03) x10^3u/L Absolute Lymphs (auto) 0.85 L (1.0-4.6) x10^3/uL Absolute Monos (auto) 0.58 (0.0-1.3) x10^3/uL Absolute Nucleated RBC 0.00 (0.00-0.01) x10^3u/L Lymphocytes % 9.1 L (24.0-44.0) % Monocytes % 6.2 (0.0-12.0) % Eosinophils % 0.6 (0.00-5.0) % Basophils % 0.2 (0.0-0.4) % Absolute Granulocytes 7.77 H (1.4-6.9) x10^3/uL Basophils # 0.02 (0-0.4) x10^3/uL Sodium 136 L (137-145) mmol/L Potassium 3.6 (3.5-5.1) mmol/L Chloride 102 (98-107) mmol/L Carbon Dioxide 27 (22-30) mmol/L Anion Gap 10.7 (5-15) MEQ/L BUN 19 (9-20) mg/dL Creatinine 1.10 (0.66-1.25) mg/dL Estimated GFR > 60.0 ML/MIN Glucose 137 H (74-106) mg/dL POC Glucometer (74 to 106) mg/dL Calcium 8.8 (8.4-10.2) mg/dL Magnesium 1.7 (1.6-2.3) mg/dL Total Bilirubin 1.30 (0.2-1.3) mg/dL AST 37 (17-59) U/L ALT 24 (0-50) U/L Alkaline Phosphatase 133 H (38-126) U/L Troponin I 0.021 (0.000-0.034) ng/mL NT-Pro-B Natriuret Pep 1920 (<300) pg/mL Serum Total Protein 6.5 (6.3-8.2) g/dL Albumin 3.8 (3.5-5.0) g/dL Urine Color (Yellow) Urine Appearance (Clear) Urine pH (4.6-8.0) Ur Specific [place] (1.005-1.030) Urine Protein (Negative) Urine Glucose (UA) (Negative) mg/dL Urine Ketones (Negative) Urine Blood (Negative) Urine Nitrite (Negative) Urine Bilirubin (Negative) Urine Urobilinogen (0.2) mg/dL Ur Leukocyte Esterase (Negative) U Hyaline Cast (Auto) (0-2) /LPF Urine Microscopic RBC (0-5) /HPF Urine Microscopic WBC (0-5) /HPF Ur Epithelial Cells (None Seen) /HPF Urine Bacteria (None Seen) /HPF Urine Culture Reflexed (NO) Urine Opiates Level (NEGATIVE) Ur Methadone (NEGATIVE) Urine Barbiturates (NEGATIVE) Ur Phencyclidine (PCP) (NEGATIVE) Urine Amphetamine (NEGATIVE) U Benzodiazepine Level (NEGATIVE) Urine Cocaine (NEGATIVE) Urine Marijuana (THC) (NEGATIVE) Ethyl Alcohol < 10 (0-10) mg/dL Influenza Type A Ag (NEGATIVE) Influenza Type B Ag (NEGATIVE) RSV (PCR) (NEGATIVE) SARS-CoV-2 (PCR) (NEGATIVE) 06/28/22 06/28/22 06/28/22 Range/Units 18:50 20:37 20:37 WBC (4.0-10.5) x10^3/uL RBC (4.1-5.6) x10^6/uL Hgb (12.5-18.0) g/dL Hct (42-50) % MCV (78-100) fL MCH (26-32) pg MCHC (32-36) g/dL RDW (11.5-14.0) % Plt Count (150-450) x10^3/uL MPV (7.5-11.0) fL Gran % (36.0-66.0) % Immature Gran % (Auto) (0.00-0.4) % Nucleat RBC Rel Count (0.00-0.1) % Eos # (Auto) (0-0.5) x10^3/uL Immature Gran # (Auto) (0.00-0.03) x10^3u/L Absolute Lymphs (auto) (1.0-4.6) x10^3/uL Absolute Monos (auto) (0.0-1.3) x10^3/uL Absolute Nucleated RBC (0.00-0.01) x10^3u/L Lymphocytes % (24.0-44.0) % Monocytes % (0.0-12.0) % Eosinophils % (0.00-5.0) % Basophils % (0.0-0.4) % Absolute Granulocytes (1.4-6.9) x10^3/uL Basophils # (0-0.4) x10^3/uL Sodium (137-145) mmol/L Potassium (3.5-5.1) mmol/L Chloride (98-107) mmol/L Carbon Dioxide (22-30) mmol/L Anion Gap (5-15) MEQ/L BUN (9-20) mg/dL Creatinine (0.66-1.25) mg/dL Estimated GFR ML/MIN Glucose (74-106) mg/dL POC Glucometer (74 to 106) mg/dL Calcium (8.4-10.2) mg/dL Magnesium (1.6-2.3) mg/dL Total Bilirubin (0.2-1.3) mg/dL AST (17-59) U/L ALT (0-50) U/L Alkaline Phosphatase (38-126) U/L Troponin I (0.000-0.034) ng/mL NT-Pro-B Natriuret Pep (<300) pg/mL Serum Total Protein (6.3-8.2) g/dL Albumin (3.5-5.0) g/dL Urine Color Yellow (Yellow) Urine Appearance Clear (Clear) Urine pH 5.5 (4.6-8.0) Ur Specific [place] 1.015 (1.005-1.030) Urine Protein 30 (Negative) Urine Glucose (UA) Negative (Negative) mg/dL Urine Ketones Negative (Negative) Urine Blood Negative (Negative) Urine Nitrite Negative (Negative) Urine Bilirubin Negative (Negative) Urine Urobilinogen 1.0 A (0.2) mg/dL Ur Leukocyte Esterase Negative (Negative) U Hyaline Cast (Auto) NONE SEEN (0-2) /LPF Urine Microscopic RBC 0-2 (0-5) /HPF Urine Microscopic WBC 0-2 (0-5) /HPF Ur Epithelial Cells None Seen (None Seen) /HPF Urine Bacteria None Seen (None Seen) /HPF Urine Culture Reflexed NO (NO) Urine Opiates Level NEGATIVE (NEGATIVE) Ur Methadone NEGATIVE (NEGATIVE) Urine Barbiturates NEGATIVE (NEGATIVE) Ur Phencyclidine (PCP) NEGATIVE (NEGATIVE) Urine Amphetamine POSITIVE (NEGATIVE) U Benzodiazepine Level NEGATIVE (NEGATIVE) Urine Cocaine NEGATIVE (NEGATIVE) Urine Marijuana (THC) NEGATIVE (NEGATIVE) Ethyl Alcohol (0-10) mg/dL Influenza Type A Ag NEGATIVE (NEGATIVE) Influenza Type B Ag NEGATIVE (NEGATIVE) RSV (PCR) NEGATIVE (NEGATIVE) SARS-CoV-2 (PCR) NEGATIVE (NEGATIVE) 06/28/22 06/29/22 06/29/22 Range/Units 22:20 00:22 02:41 WBC (4.0-10.5) x10^3/uL RBC (4.1-5.6) x10^6/uL Hgb (12.5-18.0) g/dL Hct (42-50) % MCV (78-100) fL MCH (26-32) pg MCHC (32-36) g/dL RDW (11.5-14.0) % Plt Count (150-450) x10^3/uL MPV (7.5-11.0) fL Gran % (36.0-66.0) % Immature Gran % (Auto) (0.00-0.4) % Nucleat RBC Rel Count (0.00-0.1) % Eos # (Auto) (0-0.5) x10^3/uL Immature Gran # (Auto) (0.00-0.03) x10^3u/L Absolute Lymphs (auto) (1.0-4.6) x10^3/uL Absolute Monos (auto) (0.0-1.3) x10^3/uL Absolute Nucleated RBC (0.00-0.01) x10^3u/L Lymphocytes % (24.0-44.0) % Monocytes % (0.0-12.0) % Eosinophils % (0.00-5.0) % Basophils % (0.0-0.4) % Absolute Granulocytes (1.4-6.9) x10^3/uL Basophils # (0-0.4) x10^3/uL Sodium (137-145) mmol/L Potassium (3.5-5.1) mmol/L Chloride (98-107) mmol/L Carbon Dioxide (22-30) mmol/L Anion Gap (5-15) MEQ/L BUN (9-20) mg/dL Creatinine (0.66-1.25) mg/dL Estimated GFR ML/MIN Glucose (74-106) mg/dL POC Glucometer 228 H (74 to 106) mg/dL Calcium (8.4-10.2) mg/dL Magnesium (1.6-2.3) mg/dL Total Bilirubin (0.2-1.3) mg/dL AST (17-59) U/L ALT (0-50) U/L Alkaline Phosphatase (38-126) U/L Troponin I 0.018 0.019 (0.000-0.034) ng/mL NT-Pro-B Natriuret Pep (<300) pg/mL Serum Total Protein (6.3-8.2) g/dL Albumin (3.5-5.0) g/dL Urine Color (Yellow) Urine Appearance (Clear) Urine pH (4.6-8.0) Ur Specific [place] (1.005-1.030) Urine Protein (Negative) Urine Glucose (UA) (Negative) mg/dL Urine Ketones (Negative) Urine Blood (Negative) Urine Nitrite (Negative) Urine Bilirubin (Negative) Urine Urobilinogen (0.2) mg/dL Ur Leukocyte Esterase (Negative) U Hyaline Cast (Auto) (0-2) /LPF Urine Microscopic RBC (0-5) /HPF Urine Microscopic WBC (0-5) /HPF Ur Epithelial Cells (None Seen) /HPF Urine Bacteria (None Seen) /HPF Urine Culture Reflexed (NO) Urine Opiates Level (NEGATIVE) Ur Methadone (NEGATIVE) Urine Barbiturates (NEGATIVE) Ur Phencyclidine (PCP) (NEGATIVE) Urine Amphetamine (NEGATIVE) U Benzodiazepine Level (NEGATIVE) Urine Cocaine (NEGATIVE) Urine Marijuana (THC) (NEGATIVE) Ethyl Alcohol (0-10) mg/dL Influenza Type A Ag (NEGATIVE) Influenza Type B Ag (NEGATIVE) RSV (PCR) (NEGATIVE) SARS-CoV-2 (PCR) (NEGATIVE) Radiology Exams: Radiology Procedures Category Date Time Status CHEST 1 VIEW (PORTABLE) Stat Exams 06/28/22 18:[address] ANGIOGRAPHY NECK [CT] Stat Exams 06/28/22 20:47 Completed CTA HEAD W AND/OR WO CONTRAST [CT] Stat Exams 06/28/22 20:47 Completed HEAD WITHOUT CONTRAST [CT] Stat Exams 06/28/22 18:15 Taken MRI BRAIN W/O CONTRAST [MRI] Urgent Exams 06/29/22 08:00 Ordered SHOULDER Stat Exams 06/28/22 18:22 Taken Assessment/Plan (1) Altered mental status Current Visit: Yes Status: Acute Assessment & Plan: suspect drug related, will obtain MRI brain to r/o TIA/ischemia Code(s): R41.82 - ALTERED MENTAL STATUS, UNSPECIFIED (2) TIA (transient ischemic attack) Current Visit: Yes Status: Acute Code(s): G45.9 - TRANSIENT CEREBRAL ISCHEMIC ATTACK, UNSPECIFIED (3) DM w/o complication type II Current Visit: No Status: Acute Onset Date: ~11/27/17 Code(s): E11.9 - TYPE 2 DIABETES MELLITUS WITHOUT COMPLICATIONS (4) Illicit drug use Current Visit: No Status: Acute Onset Date: ~11/27/17 Code(s): F19.90 - OTHER PSYCHOACTIVE SUBSTANCE USE, UNSPECIFIED, UNCOMPLICATED (5) Murmur Current Visit: Yes Status: Acute Assessment & Plan: echo Code(s): R01.1 - CARDIAC MURMUR, UNSPECIFIED
--- NOTE | 2022-06-29 08:37 | XRAY ---
Indication: Confusion. Status post fall. Multiple contiguous axial images obtained through the head without contrast. Comparison: July 29, 2019 Again age-appropriate global atrophy. Remote lacunar infarct right basal ganglia. No acute intracranial hemorrhage, abnormal extra-axial fluid collection, or mass effect. Fourth ventricle is midline without hydrocephalus. Gunn-white matter differentiation preserved. Bony calvarium intact. Visualized paranasal sinuses and mastoid air cells are clear. Impression: Atrophy and remote lacunar infarct right basal ganglia. No acute intracranial abnormalities.
--- NOTE | 2022-06-29 08:39 | XRAY ---
Indication: Chest pain. Confusion. Comparison: May 14, 2018 Portable chest now demonstrates borderline cardiomegaly and minimal left base subsegmental atelectasis/scarring. Remaining heart and lungs unremarkable. Bony thorax intact again with osteopenia and degenerative changes.
--- NOTE | 2022-06-29 08:41 | XRAY ---
Indication: Pain following fall. Comparison: August 03, 2017 3 view right shoulder now demonstrates high riding humeral head commonly seen with rotator cuff tear. Stable osteopenia, degenerative changes, and widened acromioclavicular articulation.
--- NOTE | 2022-06-29 09:32 | PCM.HP ---
History of Present Illness - Chief Complaint Chief Complaint: Syncope, altered mental status, hypoglycemia Date: 06/28/22 History of Present Illness: is a 72 year old male. Pateint reports falling at home. In the Ed he was confused, however he know denies taht. There was some associated difficulty with speech, but patient denies that at this time. CT of the head did not demosntrate claudia cute findings. MR to be performed. He does not report any focal motor deficits. Only the aphasia that as reported by other providers. Medications & Allergies Home Medications: Home Medication List Tamsulosin HCl 0.4 mg [Flomax 0.4 MG] 0.4 mg PO QAM 10/06/16 [History Confirmed 06/28/22] ALPRAZolam 1 MG [Xanax 1 mg] 1 mg PO TID PRN 10/31/17 [History Confirmed 06/28/22] Omeprazole 20 MG [Prilosec 20 mg] 20 mg PO QAM 10/31/17 [History Confirmed 06/28/22] lisinopriL [Prinivil] 10 mg PO QAM 10/31/17 [History Confirmed 06/28/22] Aspirin 81 mg PO HS 11/27/17 [History Confirmed 06/28/22] Insulin Glargine,Hum.rec.anlog [Lantus] 50 unit SQ DAILY 07/29/19 [History Confirmed 06/28/22] Metformin HCl 500 mg [Glucophage 500 MG] 500 mg PO BIDWM 07/29/19 [History Confirmed 06/28/22] Atorvastatin Calcium [Lipitor] 20 mg PO QHS 08/02/20 [History Confirmed 06/28/22] Diclofenac Sodium Gel [Voltaren GEL] 100 gm TP QID 08/02/20 [History Confirmed 06/28/22] Pioglitazone 30 mg [Actos 30 MG] 30 mg PO DAILY 08/02/20 [History Confirmed 06/28/22] Hydrocodone/APAP 5/325 [[place] 5/325 mg] 1 each PO Q8H PRN #10 tablet MDD 3 10/09/20 [Rx Confirmed 06/28/22] Allergies/Adverse Reactions: Allergies Allergy/AdvReac Type Severity Reaction Status Date / Time No Known Drug Allergies Allergy Verified 06/28/22 18:15 - Past Medical History Past Medical History: Yes Neurological History: Peripheral Neuropathy ENT History: No Pertinent History Cardiac History: High Cholesterol, Hypertension Respiratory History: No Pertinent History Endocrine Medical History: Diabetes Type II Musculoskelatal History: Arthritis, Fractures GI Medical History: GERD, Other History: No Pertinent History Pyscho-Social History: Anxiety Male Reproductive Disorders: Prostate Problems Comment: Rotator Cuff Repair (R) approx 4-6 years ago. Back surgery (fusion of lumbar spine) approx 9 years ago. Rotator Cuff Repair (L) approx 4-6 years ago. R D1 toe joint surgery x3 approx 1.5 years ago - Past Surgical History Past Surgical History: Yes Neuro Surgical History: No Pertinent History Cardiac History: Cardiac Catheterization Respiratory Surgery: No Pertinent History GI Surgical History: No Pertinent History, Other Genitourinary Surgical Hx: No Pertinent History Musculskeletal Surgical Hx: Orthopedic Surgery Male Surgical History: No Pertinent History Other Surgical History: BILATERAL ROTOR CUFF, BACK-"fusion of lower back area", RIGHT Knee arthroscopy with "clean up",heart cath " 5 or more yrs ago". several liver biopsies. skin cancer removed from head - Social History Smoking Status: Never smoker Exposure to second hand smoke: No Alcohol: None Drug Use: marijuana - Physical Exam Vital Signs: Vital Signs - 24 hr Temp Pulse Resp BP Pulse Ox 06/29/22 08:00 16 06/29/22 07:32 98.0 F 67 16 128/60 95 06/29/22 04:00 68 14 06/29/22 00:37 97.5 F 78 16 170/86 97 06/28/22 23:33 77 12 138/98 95 06/28/22 22:43 87 23 152/96 95 06/28/22 21:33 97 06/28/22 21:03 87 18 144/90 97 06/28/22 18:22 97.0 F 78 18 97 06/28/22 18:19 97 Results - Labs Lab/Micro Results: Lab Results-Last 24 Hours 06/28/22 06/28/22 06/28/22 Range/Units 18:50 18:50 18:50 WBC 9.3 (4.0-10.5) x10^3/uL RBC 4.53 (4.1-5.6) x10^6/uL Hgb 12.3 L (12.5-18.0) g/dL Hct 38.3 L (42-50) % MCV 84.5 (78-100) fL MCH 27.2 (26-32) pg MCHC 32.1 (32-36) g/dL RDW 13.1 (11.5-14.0) % Plt Count 167 (150-450) x10^3/uL MPV 10.0 (7.5-11.0) fL Gran % 83.5 H (36.0-66.0) % Immature Gran % (Auto) 0.4 (0.00-0.4) % Nucleat RBC Rel Count 0.0 (0.00-0.1) % Eos # (Auto) 0.06 (0-0.5) x10^3/uL Immature Gran # (Auto) 0.04 H (0.00-0.03) x10^3u/L Absolute Lymphs (auto) 0.85 L (1.0-4.6) x10^3/uL Absolute Monos (auto) 0.58 (0.0-1.3) x10^3/uL Absolute Nucleated RBC 0.00 (0.00-0.01) x10^3u/L Lymphocytes % 9.1 L (24.0-44.0) % Monocytes % 6.2 (0.0-12.0) % Eosinophils % 0.6 (0.00-5.0) % Basophils % 0.2 (0.0-0.4) % Absolute Granulocytes 7.77 H (1.4-6.9) x10^3/uL Basophils # 0.02 (0-0.4) x10^3/uL Sodium 136 L (137-145) mmol/L Potassium 3.6 (3.5-5.1) mmol/L Chloride 102 (98-107) mmol/L Carbon Dioxide 27 (22-30) mmol/L Anion Gap 10.7 (5-15) MEQ/L BUN 19 (9-20) mg/dL Creatinine 1.10 (0.66-1.25) mg/dL Estimated GFR > 60.0 ML/MIN Glucose 137 H (74-106) mg/dL POC Glucometer (74 to 106) mg/dL Calcium 8.8 (8.4-10.2) mg/dL Magnesium 1.7 (1.6-2.3) mg/dL Total Bilirubin 1.30 (0.2-1.3) mg/dL AST 37 (17-59) U/L ALT 24 (0-50) U/L Alkaline Phosphatase 133 H (38-126) U/L Troponin I 0.021 (0.000-0.034) ng/mL NT-Pro-B Natriuret Pep 1920 (<300) pg/mL Serum Total Protein 6.5 (6.3-8.2) g/dL Albumin 3.8 (3.5-5.0) g/dL Urine Color (Yellow) Urine Appearance (Clear) Urine pH (4.6-8.0) Ur Specific [place] (1.005-1.030) Urine Protein (Negative) Urine Glucose (UA) (Negative) mg/dL Urine Ketones (Negative) Urine Blood (Negative) Urine Nitrite (Negative) Urine Bilirubin (Negative) Urine Urobilinogen (0.2) mg/dL Ur Leukocyte Esterase (Negative) U Hyaline Cast (Auto) (0-2) /LPF Urine Microscopic RBC (0-5) /HPF Urine Microscopic WBC (0-5) /HPF Ur Epithelial Cells (None Seen) /HPF Urine Bacteria (None Seen) /HPF Urine Culture Reflexed (NO) Urine Opiates Level (NEGATIVE) Ur Methadone (NEGATIVE) Urine Barbiturates (NEGATIVE) Ur Phencyclidine (PCP) (NEGATIVE) Urine Amphetamine (NEGATIVE) U Benzodiazepine Level (NEGATIVE) Urine Cocaine (NEGATIVE) Urine Marijuana (THC) (NEGATIVE) Ethyl Alcohol < 10 (0-10) mg/dL Influenza Type A Ag (NEGATIVE) Influenza Type B Ag (NEGATIVE) RSV (PCR) (NEGATIVE) SARS-CoV-2 (PCR) (NEGATIVE) 06/28/22 06/28/22 06/28/22 Range/Units 18:50 20:37 20:37 WBC (4.0-10.5) x10^3/uL RBC (4.1-5.6) x10^6/uL Hgb (12.5-18.0) g/dL Hct (42-50) % MCV (78-100) fL MCH (26-32) pg MCHC (32-36) g/dL RDW (11.5-14.0) % Plt Count (150-450) x10^3/uL MPV (7.5-11.0) fL Gran % (36.0-66.0) % Immature Gran % (Auto) (0.00-0.4) % Nucleat RBC Rel Count (0.00-0.1) % Eos # (Auto) (0-0.5) x10^3/uL Immature Gran # (Auto) (0.00-0.03) x10^3u/L Absolute Lymphs (auto) (1.0-4.6) x10^3/uL Absolute Monos (auto) (0.0-1.3) x10^3/uL Absolute Nucleated RBC (0.00-0.01) x10^3u/L Lymphocytes % (24.0-44.0) % Monocytes % (0.0-12.0) % Eosinophils % (0.00-5.0) % Basophils % (0.0-0.4) % Absolute Granulocytes (1.4-6.9) x10^3/uL Basophils # (0-0.4) x10^3/uL Sodium (137-145) mmol/L Potassium (3.5-5.1) mmol/L Chloride (98-107) mmol/L Carbon Dioxide (22-30) mmol/L Anion Gap (5-15) MEQ/L BUN (9-20) mg/dL Creatinine (0.66-1.25) mg/dL Estimated GFR ML/MIN Glucose (74-106) mg/dL POC Glucometer (74 to 106) mg/dL Calcium (8.4-10.2) mg/dL Magnesium (1.6-2.3) mg/dL Total Bilirubin (0.2-1.3) mg/dL AST (17-59) U/L ALT (0-50) U/L Alkaline Phosphatase (38-126) U/L Troponin I (0.000-0.034) ng/mL NT-Pro-B Natriuret Pep (<300) pg/mL Serum Total Protein (6.3-8.2) g/dL Albumin (3.5-5.0) g/dL Urine Color Yellow (Yellow) Urine Appearance Clear (Clear) Urine pH 5.5 (4.6-8.0) Ur Specific [place] 1.015 (1.005-1.030) Urine Protein 30 (Negative) Urine Glucose (UA) Negative (Negative) mg/dL Urine Ketones Negative (Negative) Urine Blood Negative (Negative) Urine Nitrite Negative (Negative) Urine Bilirubin Negative (Negative) Urine Urobilinogen 1.0 A (0.2) mg/dL Ur Leukocyte Esterase Negative (Negative) U Hyaline Cast (Auto) NONE SEEN (0-2) /LPF Urine Microscopic RBC 0-2 (0-5) /HPF Urine Microscopic WBC 0-2 (0-5) /HPF Ur Epithelial Cells None Seen (None Seen) /HPF Urine Bacteria None Seen (None Seen) /HPF Urine Culture Reflexed NO (NO) Urine Opiates Level NEGATIVE (NEGATIVE) Ur Methadone NEGATIVE (NEGATIVE) Urine Barbiturates NEGATIVE (NEGATIVE) Ur Phencyclidine (PCP) NEGATIVE (NEGATIVE) Urine Amphetamine POSITIVE (NEGATIVE) U Benzodiazepine Level NEGATIVE (NEGATIVE) Urine Cocaine NEGATIVE (NEGATIVE) Urine Marijuana (THC) NEGATIVE (NEGATIVE) Ethyl Alcohol (0-10) mg/dL Influenza Type A Ag NEGATIVE (NEGATIVE) Influenza Type B Ag NEGATIVE (NEGATIVE) RSV (PCR) NEGATIVE (NEGATIVE) SARS-CoV-2 (PCR) NEGATIVE (NEGATIVE) 06/28/22 06/29/22 06/29/22 Range/Units 22:20 00:22 02:41 WBC (4.0-10.5) x10^3/uL RBC (4.1-5.6) x10^6/uL Hgb (12.5-18.0) g/dL Hct (42-50) % MCV (78-100) fL MCH (26-32) pg MCHC (32-36) g/dL RDW (11.5-14.0) % Plt Count (150-450) x10^3/uL MPV (7.5-11.0) fL Gran % (36.0-66.0) % Immature Gran % (Auto) (0.00-0.4) % Nucleat RBC Rel Count (0.00-0.1) % Eos # (Auto) (0-0.5) x10^3/uL Immature Gran # (Auto) (0.00-0.03) x10^3u/L Absolute Lymphs (auto) (1.0-4.6) x10^3/uL Absolute Monos (auto) (0.0-1.3) x10^3/uL Absolute Nucleated RBC (0.00-0.01) x10^3u/L Lymphocytes % (24.0-44.0) % Monocytes % (0.0-12.0) % Eosinophils % (0.00-5.0) % Basophils % (0.0-0.4) % Absolute Granulocytes (1.4-6.9) x10^3/uL Basophils # (0-0.4) x10^3/uL Sodium (137-145) mmol/L Potassium (3.5-5.1) mmol/L Chloride (98-107) mmol/L Carbon Dioxide (22-30) mmol/L Anion Gap (5-15) MEQ/L BUN (9-20) mg/dL Creatinine (0.66-1.25) mg/dL Estimated GFR ML/MIN Glucose (74-106) mg/dL POC Glucometer 228 H (74 to 106) mg/dL Calcium (8.4-10.2) mg/dL Magnesium (1.6-2.3) mg/dL Total Bilirubin (0.2-1.3) mg/dL AST (17-59) U/L ALT (0-50) U/L Alkaline Phosphatase (38-126) U/L Troponin I 0.018 0.019 (0.000-0.034) ng/mL NT-Pro-B Natriuret Pep (<300) pg/mL Serum Total Protein (6.3-8.2) g/dL Albumin (3.5-5.0) g/dL Urine Color (Yellow) Urine Appearance (Clear) Urine pH (4.6-8.0) Ur Specific [place] (1.005-1.030) Urine Protein (Negative) Urine Glucose (UA) (Negative) mg/dL Urine Ketones (Negative) Urine Blood (Negative) Urine Nitrite (Negative) Urine Bilirubin (Negative) Urine Urobilinogen (0.2) mg/dL Ur Leukocyte Esterase (Negative) U Hyaline Cast (Auto) (0-2) /LPF Urine Microscopic RBC (0-5) /HPF Urine Microscopic WBC (0-5) /HPF Ur Epithelial Cells (None Seen) /HPF Urine Bacteria (None Seen) /HPF Urine Culture Reflexed (NO) Urine Opiates Level (NEGATIVE) Ur Methadone (NEGATIVE) Urine Barbiturates (NEGATIVE) Ur Phencyclidine (PCP) (NEGATIVE) Urine Amphetamine (NEGATIVE) U Benzodiazepine Level (NEGATIVE) Urine Cocaine (NEGATIVE) Urine Marijuana (THC) (NEGATIVE) Ethyl Alcohol (0-10) mg/dL Influenza Type A Ag (NEGATIVE) Influenza Type B Ag (NEGATIVE) RSV (PCR) (NEGATIVE) SARS-CoV-2 (PCR) (NEGATIVE) Accuchecks Date 06/28/22 Time 18:45 - Radiology Impressions Radiology Exams & Impressions: Radiology Procedures Category Date Time Status CHEST 1 VIEW (PORTABLE) Stat Exams 06/28/22 18:[address] ANGIOGRAPHY NECK [CT] Stat Exams 06/28/22 20:47 Completed CTA HEAD W AND/OR WO CONTRAST [CT] Stat Exams 06/28/22 20:47 Completed ECHO W/2D AND DOPPLER [US] Routine Exams 06/29/22 07:56 Ordered HEAD WITHOUT CONTRAST [CT] Stat Exams 06/28/22 18:15 Completed MRI BRAIN W/O CONTRAST [MRI] Urgent Exams 06/29/22 08:00 Ordered SHOULDER Stat Exams 06/28/22 18:22 Completed Assessment/Plan (1) TIA (transient ischemic attack) Current Visit: Yes Status: Acute Assessment & Plan: With episode of aphasia, concerning for TIA. CT negative. Will plan for MR evaluation. Also on telemetry to assess for aarrhytmia. May consider echo as additional work up. Code(s): G45.9 - TRANSIENT CEREBRAL ISCHEMIC ATTACK, UNSPECIFIED Telemedicine Encounter - Telemedicine Encounter Telemedicine Encounter: The entirety of this encounter was performed via Telemedicine"
--- NOTE | 2022-06-29 12:04 | XRAY ---
Indication: TIA symptoms. Sagittal, coronal, and axial MRI brain performed without contrast using T1, T2, FLAIR, and ADC sequences. Comparison: September 23, 2009 Age-appropriate global atrophy. Basal ganglia again demonstrates a few prominent Virchow Jeremy spaces bilaterally. No acute intracranial hemorrhage, abnormal extra-axial fluid collection, or mass effect. Diffusion images are negative for restricted signal. Fourth ventricle is midline without hydrocephalus. 7/8 cranial nerve complex bilaterally symmetric. Normal flow-void signal within the major intracerebral circulation. Normal appearing craniocervical junction and sella turcica. Visualized paranasal sinuses are clear. Impression: Continued negative MRI brain without contrast exam.
[2022-06-29] MEDS: Protonix 40MG Tablet PO SCH (12:32)
[2022-06-29] MEDS: Zestril 10 MG PO SCH (12:32)
[2022-06-29] MEDS: Flomax 0.4 MG PO SCH (12:33)
[2022-06-29] MEDS: Lantus Insulin SQ SCH (12:33)
[2022-06-29] MEDS: HUMALOG SQ PRN ×2 (17:11→21:08)
[2022-06-29] MEDS: ZOCOR 20MG PO SCH (21:01)
[2022-06-29] MEDS: ECOTRIN 81 MG PO SCH (21:02)
[2022-06-29] MEDS ORDERED: NON-FORMULARY ITEM (Atorvastatin Calcium [Lipitor] 20 MG Tablet) PO SCH (22:00)
[2022-06-29] MEDS: XANAX 1 MG PO PRN (23:40)
[2022-06-30] MEDS: Sodium Chloride 0.9% 1000 ML 1,000 ML IV SCH ×2 (06:39→20:13)
--- NOTE | 2022-06-30 08:50 | PCM.NOTE ---
Date and Time: 06/30/22 0847 Subjective Assessment: patient feels well this morning. he is alert and has no confusion, denies any pain. on discussion of his heart history today he is following with Dr Em and was told he has a "valve sticking" and is planned to have a cardiac cath on 07/10 Objective Exam General Appearance: no apparent distress Neurologic Exam: alert, oriented x 3 Respiratory Exam: normal breath sounds, lungs clear, No respiratory distress Cardiovascular Exam: murmur Gastrointestinal/Abdomen Exam: soft, No tenderness, No mass Extremity Exam: normal inspection, normal range of motion OBJECTIVE DATA Vital Signs: Vital Signs - 24 hr Temp Pulse Resp BP Pulse Ox 06/30/22 06:49 97.8 F 75 16 148/74 100 06/30/22 04:00 18 06/29/22 23:43 97.7 F 68 18 111/66 96 06/29/22 20:00 16 06/29/22 19:51 98.0 F 71 17 119/62 95 06/29/22 16:00 98.1 F 67 16 136/63 93 L 06/29/22 12:00 97.9 F 76 16 180/83 98 Pain Assessment - Last Documented Pain Intensity 2 Intake and Output: Intake & Output 06/27/22 06/28/22 06/29/22 06/30/22 11:59 11:59 11:59 11:59 Intake Total 388 1300 Output Total 400 1800 Balance -12 -500 Weight 67.9 kg Lab Results: Lab Results-Last 24 Hours 06/29/22 06/29/22 06/29/22 Range/Units 11:58 16:44 20:44 POC Glucometer 243 H 240 H 212 H (74 to 106) mg/dL 06/30/22 Range/Units 07:27 POC Glucometer 71 L (74 to 106) mg/dL Radiology Exams: Radiology Procedures Category Date Time Status CHEST 1 VIEW (PORTABLE) Stat Exams 06/28/22 18:[address] ANGIOGRAPHY NECK [CT] Stat Exams 06/28/22 20:47 Completed CTA HEAD W AND/OR WO CONTRAST [CT] Stat Exams 06/28/22 20:47 Completed ECHO W/2D AND DOPPLER [US] Routine Exams 06/29/22 07:56 Taken HEAD WITHOUT CONTRAST [CT] Stat Exams 06/28/22 18:15 Completed MRI BRAIN W/O CONTRAST [MRI] Urgent Exams 06/29/22 08:00 Completed SHOULDER Stat Exams 06/28/22 18:22 Completed Assessment/Plan (1) Syncope Current Visit: Yes Status: Acute Assessment & Plan: exam concerning for aortic stenosis that is symptomatic with syncopal episode, prelim tech report on echo shows EF 36% will consult Dr Em as his neuro workup is negative, no evidence of CVA/TIA on MRI Code(s): R55 - SYNCOPE AND COLLAPSE (2) Cardiomyopathy Current Visit: Yes Status: Acute Code(s): I42.9 - CARDIOMYOPATHY, UNSPECIFIED (3) Altered mental status Current Visit: Yes Status: Acute Code(s): R41.82 - ALTERED MENTAL STATUS, UNSPECIFIED (4) DM w/o complication type II Current Visit: No Status: Acute Onset Date: ~11/27/17 Code(s): E11.9 - TYPE 2 DIABETES MELLITUS WITHOUT COMPLICATIONS (5) Illicit drug use Current Visit: No Status: Acute Onset Date: ~11/27/17 Assessment & Plan: patient admits to marijuana and meth use, I cautioned about the cardiac risks of amphetamine use with his heart disease, he voices understanding of instruction to avoid illicit drugs Code(s): F19.90 - OTHER PSYCHOACTIVE SUBSTANCE USE, UNSPECIFIED, UNCOMPLICATED (6) Murmur Current Visit: Yes Status: Acute Code(s): R01.1 - CARDIAC MURMUR, UNSPECIFIED
[2022-06-30] MEDS: Protonix 40MG Tablet PO SCH (09:26)
[2022-06-30] MEDS: Flomax 0.4 MG PO SCH (09:26)
[2022-06-30] MEDS: Zestril 10 MG PO SCH (09:26)
[2022-06-30] MEDS ORDERED: NON-FORMULARY ITEM (Omeprazole 20 Mg [Prilosec 20 Mg] 20 MG Capsule.Dr) PO SCH (10:00)
--- NOTE | 2022-06-30 10:34 | ECHO ---
Transthoracic echocardiographic examination and color Doppler was done on 06/29/2022. INDICATION: Syncope. IMPRESSION: 1) GLOBAL LEFT VENTRICULAR HYPOKINESIA WITH EJECTION FRACTION OF ABOUT 35 TO 40%. 2) MODERATE TO SEVERE CALCIFIC AORTIC STENOSIS WITH PEAK TRANSAORTIC GRADIENT OF 27 MM OF MERCURY, MEAN GRADIENT OF 18 MM OF MERCURY AND A VR RATIO OF 0.26. 3) MILD MITRAL REGURGITATION. 4) MILD TRICUSPID REGURGITATION. RIGHT VENTRICULAR SYSTOLIC PRESSURE OF 32 MM OF MERCURY. 5) PULMONIC INSUFFICIENCY. 6) LEFT ATRIAL ENLARGEMENT. 7) LEFT VENTRICLE DIASTOLIC DYSFUNCTION. 8) LEFT VENTRICULAR HYPERTROPHY. The left ventricle is visualized and demonstrated global-type of hypokinesia. Ejection fraction between 35 to 40%. There is mild left ventricular hypertrophy. The mitral valve is seen and this opens adequately. There is mild mitral regurgitation. Left atrium is enlarged. Tissue Doppler study of the lateral mitral annulus is suggestive of left ventricle diastolic dysfunction. The aortic valve is heavily calcified and has limited opening. The peak gradient across the aortic valve is 27 mm of Mercury with a mean gradient of 18. The VR ratio is 0.26. The right side chambers are normal with normal right ventricular contractility. There is mild tricuspid regurgitation. The right ventricular systolic pressure of 32 mm of Mercury. There is also mild pulmonic insufficiency.
--- NOTE | 2022-06-30 15:47 | PCM.DS ---
Discharge Summary Date of Admission: 06/29/22 00:03 Admitting Physician: LAUREL SILVA MD Consults: Consults on Case 06/30/22 08:46 Consult Cardiology ROUTINE Primary Care Provider: MAIDA MARINO DOMINIQUE Allergies Allergies No Known Drug Allergies Allergy (Verified 06/28/22 18:15) Hospital Summary - Hospital Course Hospital Course: patient admitted with a syncopal episode and mental status changes, found to have a drug screen positive for amphetamines. MRI was negative for any infarct or acute changes. echo showed severe aortic stenosis with EF 35-40%. I spoke with Dr Em who recommended transfer for cardiac cath but [facility] has no cath capacity, [facility] has no beds so I spoke with transfer center and he is being accepted to [facility] - Vitals & Intake/Output Vital Signs: Vital Signs Temperature 98.0 F 06/30/22 11:43 Pulse Rate 59 L 06/30/22 11:43 Respiratory Rate 16 06/30/22 11:43 Blood Pressure 137/70 06/30/22 11:43 O2 Sat by Pulse Oximetry 95 06/30/22 11:43 Intake & Output: Intake & Output 06/28/22 06/29/22 06/30/22 07/01/22 11:59 11:59 11:59 11:59 Intake Total 388 1880 480 Output Total 400 2400 300 Balance -12 -520 180 Weight 67.9 kg - Lab Result Diagrams: 06/28/22 18:50 06/28/22 18:50 Lab Results-Last 24 Hrs: Lab Results-Last 24 Hours 06/29/22 06/29/22 06/30/22 Range/Units 16:44 20:44 07:27 POC Glucometer 240 H 212 H 71 L (74 to 106) mg/dL 06/30/22 Range/Units 11:47 POC Glucometer 176 H (74 to 106) mg/dL Micro Results-Entire Visit: Accuchecks Date 06/30/22 Date 06/30/22 Date 06/29/22 Date 06/29/22 Time 11:50 Time 07:34 Time 21:00 Time 16:47 - Radiology Exams Ordered Rad Exams-Entire Visit: Radiology Procedures Category Date Time Status CHEST 1 VIEW (PORTABLE) Stat Exams 06/28/22 18:[address] ANGIOGRAPHY NECK [CT] Stat Exams 06/28/22 20:47 Completed CTA HEAD W AND/OR WO CONTRAST [CT] Stat Exams 06/28/22 20:47 Completed ECHO W/2D AND DOPPLER [US] Routine Exams 06/29/22 07:56 Draft HEAD WITHOUT CONTRAST [CT] Stat Exams 06/28/22 18:15 Completed MRI BRAIN W/O CONTRAST [MRI] Urgent Exams 06/29/22 08:00 Completed SHOULDER Stat Exams 06/28/22 18:22 Completed - Procedures and Test Procedures and Tests throughout Hospitalization: Therapy Orders & Screens 06/29/22 11:39 EEG 41-60 Minutes (Normal) ONCE Comment: Reason For Exam: Diagnosis: Syncope, altered mental status, hypoglycemia Discharge Exam General Appearance: no apparent distress Neurologic Exam: alert, oriented x 3 Respiratory Exam: normal breath sounds, lungs clear, No respiratory distress Cardiovascular Exam: murmur Gastrointestinal/Abdomen Exam: soft, No tenderness, No mass Extremity Exam: normal inspection, normal range of motion Skin Exam: normal color, warm, dry Final Diagnosis/Problem List - Final Discharge Diagnosis/Problem (1) Aortic stenosis Current Visit: Yes Status: Acute Assessment & Plan: I spoke with Dr Edson Butcher who agrees to accept patient in transfer to [facility] team service for further evaluation and intervention Code(s): I35.0 - NONRHEUMATIC AORTIC (VALVE) STENOSIS (2) Syncope Current Visit: Yes Status: Acute Code(s): R55 - SYNCOPE AND COLLAPSE (3) Cardiomyopathy Current Visit: Yes Status: Acute Code(s): I42.9 - CARDIOMYOPATHY, UNSPECIFIED (4) Altered mental status Current Visit: Yes Status: Acute Code(s): R41.82 - ALTERED MENTAL STATUS, UNSPECIFIED (5) DM w/o complication type II Current Visit: No Status: Acute Onset Date: ~11/27/17 Code(s): E11.9 - TYPE 2 DIABETES MELLITUS WITHOUT COMPLICATIONS (6) Illicit drug use Current Visit: No Status: Acute Onset Date: ~11/27/17 Code(s): F19.90 - OTHER PSYCHOACTIVE SUBSTANCE USE, UNSPECIFIED, UNCOMPLICATED - Discharge Disposition: XFER OTHER Condition: Stable Prescriptions: No Action Tamsulosin HCl 0.4 mg [Flomax 0.4 MG] 0.4 mg PO QAM ALPRAZolam 1 MG [Xanax 1 mg] 1 mg PO TID PRN lisinopriL [Prinivil] 10 mg PO QAM Omeprazole 20 MG [Prilosec 20 mg] 20 mg PO QAM Aspirin 81 mg PO HS Metformin HCl 500 mg [Glucophage 500 MG] 500 mg PO BIDWM Insulin Glargine,Hum.rec.anlog [Lantus] 20 unit SQ DAILY Pioglitazone 30 mg [Actos 30 MG] 30 mg PO DAILY Atorvastatin Calcium [Lipitor] 20 mg PO QHS Diclofenac Sodium Gel [Voltaren GEL] 100 gm TP QID Hydrocodone/APAP 5/325 [[place] 5/325 mg] 1 each PO Q8H PRN #10 tablet MDD 3 PRN Reason: Pain Additional Instructions: Dr Edson Butcher accepting physician at [facility] Follow up with: MAIDA MARINO MD [Primary Care Provider] - 07/10/22 10:30 am
[2022-06-30 16:21] VITALS: O2SAT 96
[2022-06-30] MEDS: Lantus Insulin SQ SCH ×2 (16:40→16:53)
[2022-06-30] MEDS: HUMALOG SQ PRN (16:54)
[2022-06-30 19:56] VITALS: BP 144/66; PULSE 76
[2022-06-30] MEDS ORDERED: TYLENOL 325 MG PO PRN (20:04)
[2022-06-30] MEDS ORDERED: TYLENOL 325 MG ONE (20:06)
[2022-06-30] MEDS: ECOTRIN 81 MG PO SCH (20:11)
[2022-06-30] MEDS: ZOCOR 20MG PO SCH (20:12)
[2022-06-30] MEDS: XANAX 1 MG PO PRN (22:06)
== END 2022-06-30 22:30 ==
LOC: ED 18:09 → MED SURG 06-29 00:03
PROVIDERS: ADMIT Internal Medicine; ATTEND Family Medicine
DX: I35.0 Nonrheumatic aortic (valve) stenosis (principal); R55 Syncope and collapse; I42.9 Cardiomyopathy, unspecified; R41.82 Altered mental status, unspecified; E11.649 Type 2 diabetes mellitus with hypoglycemia without coma; E78.5 Hyperlipidemia, unspecified; I10 Essential (primary) hypertension; G45.9 Transient cerebral ischemic attack, unspecified; F19.90 Other psychoactive substance use, unspecified, uncomplicated; R01.1 Cardiac murmur, unspecified; Z79.899 Other long term (current) drug therapy; Z20.828 Contact with and (suspected) exposure to other viral communicable diseases
CPT/HCPCS: 0241U; 36000; 36415; 70450; 70496; 70498; 70551; 71045; 73030; 80053; 80307; 81001; 82077; 82947; 83735; 83880; 84484; 85025; 93005; 93041; 93268; 93306; 94760; 95812; 99285; G0378; J1817; A9270-GY

== ENCOUNTER 2023-02-20 10:13 | Day surgery (SDC) | payer MEDICARE, OTHER ==
[2023-02-20] MEDS ORDERED: CEFAZOLIN 2 GM-D5W BAG** 2 GM/50 ML ML IV SCH (10:30)
[2023-02-20] MEDS ORDERED: Lactated Ringers 1,000 ML IV SCH (10:30)
[2023-02-20 10:40] VITALS: RESP 16
[2023-02-20 10:52] LABS: Hematocrit 42.8 % (42-50); Hemoglobin 13.2 g/dL (12.5-18.0); Mean Cell Volume 86.8 fL (78-100); Mean Corpuscular Hemoglobin 26.8 pg (26-32); Mean Corpuscular Hgb Concent. 30.8 g/dL (32-36); Mean Platelet Volume 9.6 fL (7.5-11.0); Platelet Count 168 x10^3/uL (150-450); Red Blood Count 4.93 x10^6/uL (4.1-5.6); Red Cell Distribution Width 14.5 % (11.5-14.0); White Blood Count 9.4 x10^3/uL (4.0-10.5)
[2023-02-20 11:04] LABS: ALBUMIN 3.9 g/dL (3.5-5.0); ANION GAP 12.5 MEQ/L (5-15); BILIRUBIN,TOTAL 1.4 mg/dL (0.2-1.3); Calcium 9.3 mg/dL (8.4-10.2); Creatinine 1 1.07 mg/dL (0.66-1.25); EST GLOMERULAR FILTRATION RATE 72.8 ML/MIN; Potassium 4.1 mmol/L (3.5-5.1)
[2023-02-20] MEDS ORDERED: XYLOCAINE 1% HCL 20 ML MDV ONE (13:19)
[2023-02-20] MEDS ORDERED: Marcaine Mpf 0.5% Vial 30 Ml ONE (13:19)
[2023-02-20] MEDS ORDERED: Xylocaine-Mpf 2% 5 Ml Vial ONE (13:22)
[2023-02-20] MEDS ORDERED: Versed 2 MG/2 ML Injection ONE (13:22)
[2023-02-20] MEDS ORDERED: DIPRIVAN 200 MG/20 ML IV ONE ×2 (13:22→13:53)
[2023-02-20] MEDS ORDERED: SUBLIMAZE 100 MCG/2 ML ONE (13:22)
[2023-02-20] MEDS ORDERED: VANCOCIN INJECTION IV ONE (13:59)
--- NOTE | 2023-02-20 14:28 | XRAY ---
Indication: Right foot hardware removal. Intraoperative fluoroscopy provided for 3 seconds. 5 digital spot images submitted for interpretation demonstrates removal 5th metatarsophalangeal fixation plate and distal screws. Remnant broken screw tip seen mid and head of metatarsal. Correlate with intraoperative findings/report.
--- NOTE | 2023-02-20 15:28 | XRAY ---
3 seconds of fluoroscopy was used in surgery for a right foot hardware removal.
[2023-02-20 15:30] VITALS: BP 136/87; PULSE 62; TEMP 96.8; O2SAT 98
--- NOTE | 2023-02-21 09:56 | OP ---
SURGERY DATE: 02/20/2023 2415 PREOPERATIVE DIAGNOSES: 1) Painful hardware right foot. 2) Pain right foot. 3) Pseudoarthritis first metatarsophalangeal joint. POSTOPERATIVE DIAGNOSES: 1) Painful hardware right foot. 2) Pain right foot. 3) Pseudoarthritis first metatarsophalangeal joint. PROCEDURE: Removal of hardware right foot. SURGEON: Axel Rodrigez DPM. NAIL EXPERT: None. ANESTHESIA: Monitored anesthesia care. HEMOSTASIS: Ankle tourniquet set to 250 mm of Mercury for 22 total tourniquet minutes. ESTIMATED BLOOD LOSS: Minimal. MATERIALS: 4.0 x 36 mm MAX VPC screw as well as BioPro Memory Staple, 4-0 Monocryl, 3-0 Nylon, 2-0 Nylon and Suturegard. INJECTABLES: 20 cc of a 1:1 mixture of 1% lidocaine plain and 0.5% bupivacaine plain injected in a Lyn block type fashion. INDICATION FOR PROCEDURE: [place] is a very pleasant 72-year-old male well known to my service for having had multiple procedures done at other institutions in order to correct for osteoarthritis and a bunion of the first metatarsophalangeal joint. The patient failed these procedures. An implant had to be removed. An attempt a first metatarsophalangeal joint arthrodesis was performed with failure of subsequent effort. As a result, the patient had a significantly shortened first digit and pain with ambulation. The patient did have a subsequent intervention with an Allograft in order to restore the length. However this was a failure and the graft slowly resorbed and the toe as well as the implant slowly subsided into the hardware. The hardware at this time is now pressing at the plantar aspect of the sulcus of the first metatarsophalangeal joint and the toe is near to original shortened position. Options were discussed with the patient in regards to outcome and the patient wished to proceed with solely removing the hardware and seeing if the pain resolved at that time. I am amenable to this plan at this time with the possibility that we may proceed with a hallux and partial first ray amputation at a later date. All risks, complications and benefits of surgical intervention at this time were discussed with the patient in depth including but not limited to infection, hematoma, seroma, possibility of delayed wound healing, nonwound healing and possibility of failure of surgical intervention and need for further surgical intervention at a later date. No guarantees were provided as to the outcome. It is at this time we decided to proceed. DESCRIPTION OF PROCEDURE AND FINDINGS: The patient was brought into the operating room and placed on the operating room table in the supine position. At this time monitored anesthesia care was administered until the patient was sedated. A well-padded ankle tourniquet was applied to the patient's right ankle. The right foot was prepped and draped in the typical sterile fashion and lowered onto the surgical field. At this time a time out was called. From that standpoint an injection was provided to the right foot in a Lyn block-type fashion consisting of a 1:1 mixture of 1% lidocaine plain and 0.5% bupivacaine plain injected in a Lyn block to the right foot. Following this, an incision was made in the footprint of the previous scar where significant amounts of scar tissue were identified. The plate was identified and the screws were removed. The distal aspect of the plate had imbedded itself plantar to the proximal phalanx. At this time the plate was pried out. A sample of bone was taken to assess for possible infection. At this time copious amounts of sterile saline were utilized to flush the surgical site. Vancomycin powder was introduced into the surgical site. 4-0 Monocryl was utilized to close the surgical incision along with 3-0 Nylon and 2-0 Nylon with Suturegard. The patient was reversed from anesthesia and returned to the postoperative anesthesia care unit with vital signs stable and vascular status intact. The patient handled the anesthesia as well as the procedure without significant complication. Postoperative orders as indicated in the patient's discharge chart.
== END 2023-02-20 15:44 | disposition home or self-care (01) ==
LOC: SDC 10:13
PROVIDERS: ATTEND Podiatrist Foot & Ankle Surgery
DX: T84.84XA Pain due to internal orthopedic prosthetic devices, implants and grafts, initial encounter (principal); M96.0 Pseudarthrosis after fusion or arthrodesis; E11.9 Type 2 diabetes mellitus without complications
CPT/HCPCS: 20680; 36415; 73630; 76000; 80053; 82947; 85027; 93005; 99100; J0690; J2250; J2704; J3010; J3370

== ENCOUNTER 2023-07-27 05:55 | Day surgery (SDC) | payer MEDICARE, OTHER ==
[2023-07-27] MEDS ORDERED: Lactated Ringers 1,000 ML IV SCH (06:00)
[2023-07-27] MEDS ORDERED: BETADINE 5% OPHTHALMIC 30 ML OP ONE (06:00)
[2023-07-27] MEDS ORDERED: cefUROXime sodium 0.005 GM in Sodium Chloride Flush 30 ML*** 0.5 ML IJ ONE (06:00)
[2023-07-27] MEDS ORDERED: NON-FORMULARY ITEM OP ONE (06:00)
[2023-07-27] MEDS ORDERED: Lactated Ringers 1,000 ML IV ONE ×2 (06:18→08:54)
[2023-07-27] MEDS: Lactated Ringers 1,000 ML IV SCH (06:25)
[2023-07-27] MEDS: TETRACAINE 0.5% STERI-UNIT SOL OP ONE ×2 (06:31→07:01)
[2023-07-27] MEDS: Ak-Dilate OPHTHALMIC*** 1.065 ML, Cyclogyl 1% OPHTH SOL 1.065 ML, GATIFLOXACIN 0.5% OPH... OP ONE (06:35)
[2023-07-27 06:36] LABS: Hematocrit 39.6 % (42-50); Hemoglobin 12.6 g/dL (12.5-18.0); Mean Corpuscular Hgb Concent. 31.8 g/dL (32-36); Mean Platelet Volume 9.7 fL (7.5-11.0); Platelet Count 185 x10^3/uL (150-450); Red Blood Count 4.66 x10^6/uL (4.1-5.6); Red Cell Distribution Width 13.9 % (11.5-14.0); White Blood Count 8.3 x10^3/uL (4.0-10.5)
[2023-07-27 06:47] LABS: ANION GAP 7.8 MEQ/L (5-15); Creatinine 1 1.12 mg/dL (0.66-1.25); EST GLOMERULAR FILTRATION RATE 68.5 ML/MIN; Potassium 4.3 mmol/L (3.5-5.1)
[2023-07-27] MEDS ORDERED: DIPRIVAN 200 MG/20 ML IV ONE ×2 (07:51→08:30)
[2023-07-27] MEDS ORDERED: PHENYLEPHRINE HCL ONE (08:38)
[2023-07-27] MEDS ORDERED: Zofran 4 MG/2 ML VIAL IV PRN (09:00)
[2023-07-27] MEDS ORDERED: DEXMEDETOMIDINE 80 MCG/20ML-NS IV ONE (09:06)
[2023-07-27] MEDS ORDERED: Epinephrine Preservative Free 1 MG/ML IJ ONE (09:30)
[2023-07-27 09:47] VITALS: RESP 16; O2SAT 99
[2023-07-27] MEDS: ACETAZOLAMIDE 250 MG TABLET PO ONE (09:47)
[2023-07-27 10:02] VITALS: BP 133/66; PULSE 70; TEMP 97.1
== END 2023-07-27 10:11 | disposition home or self-care (01) ==
LOC: SDC 05:55
PROVIDERS: ATTEND Ophthalmology
DX: H25.812 Combined forms of age-related cataract, left eye (principal); I10 Essential (primary) hypertension; E11.9 Type 2 diabetes mellitus without complications
CPT/HCPCS: 36415; 66982; 80048; 85027; 93005; 99100; C1780; J0171; J2371; J2704; A9270-GY

== ENCOUNTER 2023-08-28 06:36 | Day surgery (SDC) | payer MEDICARE, OTHER ==
[2023-08-28] MEDS ORDERED: Epinephrine Preservative Free 1 MG/ML IJ ONE (06:37)
[2023-08-28] MEDS ORDERED: MIOSTAT IO ONE (06:37)
[2023-08-28] MEDS ORDERED: Lactated Ringers 1,000 ML IV ONE (07:47)
[2023-08-28] MEDS: Lactated Ringers 1,000 ML IV SCH (07:51)
[2023-08-28] MEDS: TETRACAINE 0.5% STERI-UNIT SOL OP ONE ×2 (07:57→07:58)
[2023-08-28] MEDS: NON-FORMULARY ITEM OP ONE (07:57)
[2023-08-28] MEDS: BETADINE 5% OPHTHALMIC 30 ML OP ONE (07:57)
[2023-08-28] MEDS: cefUROXime sodium 0.005 GM in Sodium Chloride Flush 30 ML*** 0.5 ML IJ ONE (07:57)
[2023-08-28] MEDS: Ak-Dilate OPHTHALMIC*** 1.065 ML, Cyclogyl 1% OPHTH SOL 1.065 ML, GATIFLOXACIN 0.5% OPH... OP ONE (07:58)
[2023-08-28] MEDS: D50W 50 ml Abboject IV ONE (08:23)
[2023-08-28] MEDS ORDERED: Zofran 4 MG/2 ML VIAL IV PRN (09:30)
[2023-08-28] MEDS ORDERED: SUBLIMAZE 100 MCG/2 ML ONE (11:52)
[2023-08-28] MEDS ORDERED: DIPRIVAN 200 MG/20 ML IV ONE (11:52)
[2023-08-28] MEDS ORDERED: Decadron 4 MG INJ ONE (11:52)
[2023-08-28] MEDS ORDERED: Zofran 4 MG/2 ML VIAL ONE (11:52)
[2023-08-28] MEDS ORDERED: Xylocaine-Mpf 2% 5 Ml Vial ONE (11:52)
[2023-08-28 12:54] VITALS: TEMP 97.5
[2023-08-28] MEDS: ACETAZOLAMIDE 250 MG TABLET PO ONE (12:54)
[2023-08-28 12:59] VITALS: PULSE 65; RESP 18; O2SAT 100
[2023-08-28 13:04] VITALS: BP 143/75
== END 2023-08-28 13:14 | disposition home or self-care (01) ==
LOC: SDC 06:36
PROVIDERS: ATTEND Ophthalmology
DX: H25.811 Combined forms of age-related cataract, right eye (principal); E11.9 Type 2 diabetes mellitus without complications
CPT/HCPCS: 82947; C1780; J0171; J1100; J2405; J2704; J3010; A9270-GY

== ENCOUNTER 2024-01-04 19:36 | Emergency (ER) | payer MEDICARE, OTHER ==
--- NOTE | 2024-01-04 19:47 | ERPHSYRPT ---
- History of Present Illness Time Seen by Provider: 01/04/24 19:47 Historian: patient, family Exam Limitations: no limitations Physician History: This is a 73-year-old white male patient who presents to the emergency department escorted by family member by private vehicle with the primary complaint of several episodes of vomiting. This patient has a longstanding history of Pak's esophagus, at least 30 years per his report. He recently was diagnosed with esophageal cancer and has not yet seen the specialist but has appointments next week. Today he vomited several times. He feels weak. The symptoms began approximately 3 PM today. Patient denies chest pain. Patient denies shortness of breath. Patient has a history of diabetes, prostate issues, hypertension, CHF, hyperlipidemia, coronary disease, chronic liver disease, gastroesophageal reflux disease and heart valve surgery. Timing/Duration: today Quality: other (No complaints of pain) Severity of Pain-Max: none Severity of Pain-Current: none Associated Symptoms: loss of appetite, nausea, vomiting, weakness, No chest pain, No shortness of breath Previous symptoms: no prior history, no recent treatment Allergies/Adverse Reactions: morphine Adverse Reaction (Intermediate, Verified 01/04/24 20:11) hallucinations Home Medications: Tamsulosin HCl 0.4 mg [Flomax 0.4 MG] 0.4 mg PO QAM 10/06/16 [History] Omeprazole 20 MG [Prilosec 20 mg] 20 mg PO QAM 10/31/17 [History] Metformin HCl 500 mg [Glucophage 500 MG] 500 mg PO BIDWM 07/29/19 [History] Carvedilol 3.125 mg [Coreg 3.125 MG] 3.125 mg PO BID 02/07/23 [History] Empagliflozin [Jardiance] 25 mg PO DAILY 02/07/23 [History] Glipizide 5 mg [Glucotrol 5 MG] 10 mg PO BID 02/07/23 [History] Sacubitril/Valsartan [Entresto 24 mg-26 mg Tablet] 1 each PO BID 02/07/23 [History] Atorvastatin Calcium 20 mg PO DAILY 11/07/23 [History] Insulin Glargine [Lantus Insulin] 20 units SQ BID 11/07/23 [History] Hx Tetanus, Diphtheria Vaccination/Date Given: Yes (4 years ago) Hx Influenza Vaccination/Date Given: Yes Hx Pneumococcal Vaccination/Date Given: No Travel Risk - International Travel Have you traveled outside of the country in past 3 weeks: No - Emerging Infectious Disease Are you exhibiting symptoms associated with any current EIDs: No - Review of Systems Constitutional: Weakness, Weight Loss Eyes: No Symptoms Ears, Nose, & Throat: No Symptoms Respiratory: No Symptoms Cardiac: No Symptoms Abdominal/Gastrointestinal: Nausea, Vomiting, Appetite Changes, No Abdominal Pain, No Diarrhea Genitourinary Symptoms: No Symptoms Musculoskeletal: No Symptoms Skin: No Symptoms Neurological: No Symptoms Psychological: No Symptoms Endocrine: No Symptoms Hematologic/Lymphatic: No Symptoms Immunological/Allergic: No Symptoms All Other Systems: Reviewed and Negative - Past Medical History Pertinent Past Medical History: Yes Neurological History: No Pertinent History ENT History: Cataracts Cardiac History: Coronary Artery Disease, Hypertension, Other Respiratory History: No Pertinent History Endocrine Medical History: Diabetes Type II, Liver Disease Musculoskeletal History: Fractures, Other GI Medical History: GERD, Other History: No Pertinent History Psycho-Social History: Anxiety Male Reproductive Disorders: Prostate Problems Other Medical History: SX HX: HEART VALVE (PATIENT UNSURE OF WHICH ONE) 07/2022, HX 2 SURGERIES LEFT SHOULDER, MULTIPLE SURGERIES FOR RIGHT FOOT/ANKLE WITH HX OF FRACTURE 50 YEARS AGO. RECENTLY HARDWARE FROM FOOT/ANKLE REMOVED 02/14/23, HX BACK FUSION L4-5 (20 YEARS AGO)cataract left eye - Past Surgical History Past Surgical History: Yes Neuro Surgical History: No Pertinent History Cardiac: Cardiac Catheterization, Other Respiratory: No Pertinent History Gastrointestinal: No Pertinent History, Other Genitourinary: No Pertinent History Musculoskeletal: Orthopedic Surgery Male Surgical History: No Pertinent History Other Surgical History: BILATERAL ROTOR CUFF, BACK-"fusion of lower back area", RIGHT Knee arthroscopy with "clean up",heart cath " 5 or more yrs ago". several liver biopsies. skin cancer removed from head. right shoulder replaced - Social History Smoking Status: Never smoker Exposure to second hand smoke: No Drug Use: marijuana Patient Lives Alone: Yes - Nursing Vital Signs Nursing Vital Signs: Initial Vital Signs Temperature 97.2 F 01/04/24 19:49 Pulse Rate 90 01/04/24 19:49 Respiratory Rate 16 01/04/24 19:49 Blood Pressure 146/77 01/04/24 19:49 O2 Sat by Pulse Oximetry 99 01/04/24 19:49 Pain Scale Pain Intensity 0 - Physical Exam General Appearance: no apparent distress, alert, anxiety, thin Eye Exam: PERRL/EOMI, eyes nml inspection Ears, Nose, Throat Exam: normal ENT inspection, moist mucous membranes Neck Exam: normal inspection, non-tender, supple, full range of motion Respiratory Exam: normal breath sounds, lungs clear, airway intact, No chest tenderness, No respiratory distress Cardiovascular Exam: regular rate/rhythm, normal heart sounds, normal peripheral pulses Gastrointestinal/Abdomen Exam: soft, normal bowel sounds, No tenderness Rectal Exam: not done Back Exam: normal inspection, normal range of motion, No CVA tenderness Extremity Exam: normal inspection, normal range of motion, pelvis stable Neurologic Exam: alert, oriented x 3, cooperative, wooden tank erector II-XII nml as tested, normal mood/affect, nml cerebellar function, nml station & gait, sensation nml Skin Exam: normal color, warm, dry Lymphatic Exam: adenopathy SpO2 Interpretation: normal O2 Delivery: Room Air - Course Nursing assessment & vital signs reviewed: Yes EKG Interpreted by Me: RATE Ordered Tests: Active Orders 24 hr Category Date Time Status EKG-ER Only STAT Care 01/04/24 20:00 Active IV Insertion STAT Care 01/04/24 20:00 Active ABDOMEN AND PELVIS W/0 CONTRAS [CT] Stat Exams 01/04/24 20:01 Completed CHEST WITHOUT CONTRAST [CT] Stat Exams 01/04/24 20:02 Completed AMYLASE Stat Lab 01/04/24 20:30 Completed CBC W DIFF Stat Lab 01/04/24 20:30 Completed CMP Stat Lab 01/04/24 20:30 Completed LIPASE Stat Lab 01/04/24 20:30 Completed UA W/RFX UR CULTURE Stat Lab 01/04/24 21:28 Completed Medication Summary Discontinued Medications Generic Name Dose Route Start Last Admin Trade Name Freq PRN Reason Stop Dose Admin Sodium Chloride 1,000 mls @ 999 mls/hr 01/04/24 20:00 01/04/24 20:24 Sodium Chloride 0.9% 1000 Ml IV 01/04/24 21:00 999 mls/hr .Q1H1M STA Administration Sodium Chloride Confirm 01/04/24 20:06 Sodium Chloride 0.9% 1000 Ml Administered 01/04/24 20:07 Dose 1,000 mls @ ud .ROUTE .STK-MED ONE Lactated Ringer's 1,000 mls @ 999 mls/hr 01/04/24 21:51 01/04/24 22:16 Lactated Ringers IV 01/04/24 22:51 999 mls/hr .Q1H1M ONE Administration Lactated Ringer's Confirm 01/04/24 22:13 Lactated Ringers Administered 01/04/24 22:14 Dose 1,000 mls @ ud IV .STK-MED ONE Ondansetron HCl 4 mg 01/04/24 20:00 01/04/24 20:24 Ondansetron Hcl 4 Mg/2 Ml Vial IV 01/04/24 20:01 4 mg STAT ONE Administration Ondansetron HCl Confirm 01/04/24 20:05 Ondansetron Hcl 4 Mg/2 Ml Vial Administered 01/04/24 20:06 Dose 4 mg .ROUTE .STK-MED ONE Pantoprazole Sodium 40 mg 01/04/24 20:00 01/04/24 20:23 Pantoprazole 40 Mg Vial IV 01/04/24 20:01 40 mg STAT ONE Administration Pantoprazole Sodium Confirm 01/04/24 20:06 Pantoprazole 40 Mg Vial Administered 01/04/24 20:07 Dose 40 mg IV .STK-MED ONE Lab/Rad Data: Laboratory Result Diagrams 01/04/24 20:30 01/04/24 20:30 Laboratory Results 01/04/24 01/04/24 01/04/24 Range/Units 21:28 20:30 20:30 WBC 11.1 H (4.23-9.07) x10^3/uL RBC 5.01 (4.63-6.08) x10^6/uL Hgb 14.0 (13.7-17.5) g/dL Hct 44.8 (40.1-51.0) % MCV 89.4 (79.0-92.2) fL MCH 27.9 (25.7-32.2) pg MCHC 31.3 L (32.3-36.5) g/dL RDW 13.4 (11.6-14.4) % Plt Count 150 L (163-337) x10^3/uL MPV 10.5 (9.4-12.4) fL Gran % 85.7 H (34.0-67.9) % Immature Gran % (Auto) 0.5 H (0.001-0.429) % Nucleat RBC Rel Count 0.0 (0.00-0.2) % Eos # (Auto) 0.06 (0.04-0.54) x10^3/uL Immature Gran # (Auto) 0.06 H (0.001-0.031) x10^3u/L Absolute Lymphs (auto) 0.99 L (1.32-3.57) x10^3/uL Absolute Monos (auto) 0.44 (0.30-0.82) x10^3/uL Absolute Nucleated RBC 0.00 (0.00-0.012) x10^3u/L Lymphocytes % 9.0 L (21.8-53.1) % Monocytes % 4.0 L (5.3-12.2) % Eosinophils % 0.5 L (0.8-7.0) % Basophils % 0.3 (0.2-1.2) % Absolute Granulocytes 9.48 H (1.78-5.38) x10^3/uL Basophils # 0.03 (0.01-0.08) x10^3/uL Sodium 139 (135-145) mmol/L Potassium 3.9 (3.5-5.1) mmol/L Chloride 107 (98-107) mmol/L Carbon Dioxide 19 L (22-30) mmol/L Anion Gap 17.5 H (5-15) MEQ/L BUN 34 H (9-20) mg/dL Creatinine 1.06 (0.66-1.25) mg/dL Estimated GFR 73.2 ML/MIN Glucose 93 (74-106) mg/dL Calcium 9.4 (8.4-10.2) mg/dL Total Bilirubin 2.30 H (0.2-1.3) mg/dL AST 36 (17-59) U/L ALT 24 (0-50) U/L Alkaline Phosphatase 124 (38-126) U/L Serum Total Protein 7.1 (6.3-8.2) g/dL Albumin 4.2 (3.5-5.0) g/dL Amylase 125 H (30-110) U/L Lipase 45 (23-300) U/L Urine Color Yellow (Yellow) Urine Appearance Clear (Clear) Urine pH 6.0 (4.6-8.0) Ur Specific Carlock 1.020 (1.005-1.030) Urine Protein Trace A (Negative) Urine Glucose (UA) >=1000 A (Negative) mg/dL Urine Ketones 15 A (Negative) Urine Blood Negative (Negative) Urine Nitrite Negative (Negative) Urine Bilirubin Negative (Negative) Urine Urobilinogen 0.2 (0.2) mg/dL Ur Leukocyte Esterase Negative (Negative) U Hyaline Cast (Auto) NONE SEEN (0-2) /LPF Urine Microscopic RBC 0-2 (0-5) /HPF Urine Microscopic WBC 0-2 (0-5) /HPF Ur Epithelial Cells None Seen (None Seen) /HPF Urine Bacteria None Seen (None Seen) /HPF Urine Culture Reflexed NO (NO) - Progress Progress: improved Progress Note: 01/04/24 21:11 My medical decision making and the assignment of at least moderate complexity to this patient's medical issue today is based on review of the patient's past medical history, review of the patient's medication list, reviewed patient drug allergy list, history present illness and physical findings on examination. The workup in this patient includes placement of a intravenous line, [id number] glucose test, infusion of crystalloid solution, lactic acid level, CBC, CMP, CT scan of the chest without contrast, CT scan of the abdomen and pelvis without contrast, urinalysis, twelve-lead EKG Differential diagnosis includes urinary tract infection, dehydration, electrolyte abnormalities, arrhythmia, acute intrathoracic, abdomen, pelvis abnormality 01/04/24 22:24 Interpreted the patient's laboratory data results. Based on the laboratory data results, the patient is mildly dehydrated with slightly low CO2 and slightly elevated anion gap. There is also urine ketones measuring 15. Reexamination of this patient after 1 L of fluid shows a benign abdomen. His vital signs are stable with a room air oxygen saturation level 99%. Clinically, he states he is feeling much improved. He wants to go home. We will provide him with an additional liter of crystalloidlactated Ringer's. CT scan of the chest without contrast was interpreted by the radiologist and I reviewed the impression. The impression states focal anterior pericardial effusion/thickening best evaluated by echocardiogram. Known distal esophageal malignancy. There is evidence of aortic valve repair CT scan of the abdomen and pelvis without contrast was interpreted by the r adiologist and I reviewed the impression. The impression states diffuse fecal stasis. There is gallbladder gallstone/gravel best evaluated by gallbladder ultrasound. No abdominal aortic aneurysm. No acute findings. Counseled pt/family regarding: lab results, diagnosis, rad results Medical Desision Making - Independent Historian Additional History obtained from: Family - Diagnostic Testing Diagnostic test were ordered, analyzed, and reviewed by me: Yes Radiological Interpretation: Reviewed by me, Teleradiologist Report - Risk of complications The pt has a mod risk of morbidity or mortality based on: Need for prescription drug management - Departure Departure Disposition: Home Clinical Impression: Vomiting, Dehydration, Pericardial effusion Condition: Stable Critical Care Time: No Referrals: MAIDA MARINO MD [Primary Care Provider] - Follow up/PCP as directed Additional Instructions: Drink plenty of clear liquids before advancing your diet. Take all your medications as prescribed. Call your primary care provider and oncologist on 01/07/2024 for further management and instructions. Prescriptions: Ondansetron ODT 4 MG [Zofran Odt 4 mg] 4 mg PO Q6H PRN PRN #10 tablet PRN Reason: Vomiting
[2024-01-04 19:52] VITALS: TEMP 97.2
[2024-01-04] MEDS ORDERED: Zofran 4 MG/2 ML VIAL ONE (20:05)
[2024-01-04] MEDS ORDERED: Sodium Chloride 0.9% 1000 ML 1,000 ML ONE (20:06)
[2024-01-04] MEDS ORDERED: PROTONIX 40 MG IV IV ONE (20:06)
[2024-01-04] MEDS: PROTONIX 40 MG IV IV ONE (20:23)
[2024-01-04] MEDS: Zofran 4 MG/2 ML VIAL IV ONE (20:24)
[2024-01-04] MEDS: Sodium Chloride 0.9% 1000 ML 1,000 ML IV STA (20:24)
[2024-01-04 20:33] LABS: Absolute Neutrophil Ct (ANC) 9.48 x10^3/uL (1.78-5.38); BASOPHIL % 0.3 % (0.2-1.2); Basophil (Absolute #) 0.03 x10^3/uL (0.01-0.08); Eosinophil % 0.5 % (0.8-7.0); Eosinophil (Absolute #) 0.06 x10^3/uL (0.04-0.54); Hematocrit 44.8 % (40.1-51.0); IMMATURE GRAN # 0.06 x10^3u/L (0.001-0.031); IMMATURE GRAN % 0.5 % (0.001-0.429); Lymphocyte (Absolute #) 0.99 x10^3/uL (1.32-3.57); Mean Cell Volume 89.4 fL (79.0-92.2); Mean Corpuscular Hemoglobin 27.9 pg (25.7-32.2); Mean Corpuscular Hgb Concent. 31.3 g/dL (32.3-36.5); Mean Platelet Volume 10.5 fL (9.4-12.4); Monocyte (Absolute #) 0.44 x10^3/uL (0.30-0.82); Neutrophil % 85.7 % (34.0-67.9); Platelet Count 150 x10^3/uL (163-337); Red Blood Count 5.01 x10^6/uL (4.63-6.08); Red Cell Distribution Width 13.4 % (11.6-14.4); White Blood Count 11.1 x10^3/uL (4.23-9.07)
[2024-01-04 20:46] LABS: ALBUMIN 4.2 g/dL (3.5-5.0); ANION GAP 17.5 MEQ/L (5-15); BILIRUBIN,TOTAL 2.3 mg/dL (0.2-1.3); Calcium 9.4 mg/dL (8.4-10.2); Creatinine 1 1.06 mg/dL (0.66-1.25); EST GLOMERULAR FILTRATION RATE 73.2 ML/MIN; Potassium 3.9 mmol/L (3.5-5.1); Total Protein 7.1 g/dL (6.3-8.2)
[2024-01-04 21:40] LABS: Appearance Clear (Clear); Bacteria None Seen /HPF (None Seen); Bilirubin Negative (Negative); Blood Negative (Negative); Epithelial Cells None Seen /HPF (None Seen); Glucose, Urine >=1000 mg/dL (Negative); Hyaline Casts NONE SEEN /LPF (0-2); Ketones 15 (Negative); Leukocyte Esterase Negative (Negative); Nitrite Negative (Negative); Protein,Urine Dip Trace (Negative); RBC 0-2 /HPF (0-5); Urobilinogen 0.2 mg/dL (0.2); WBC 0-2 /HPF (0-5)
--- NOTE | 2024-01-04 22:01 | XRAY ---
Indication: Vomiting. Newly diagnosed esophageal cancer. Multiple contiguous axial images obtained through the chest without contrast. Comparison: None Lungs hyperinflated with mild bilateral dependent atelectasis. No suspicious pulmonary mass/nodule, infiltrate, consolidation, or effusion. Heart not enlarged with prior aortic valve replacement. Small focal parenchymal effusion/thickening anteriorly up to 1.7 cm. Aorta demonstrate mild scattered calcifications without aneurysm. No pathologic mediastinal lymphadenopathy. Distal esophageal soft tissue mass presumed known malignancy. Bony thorax intact with osteopenia, mild degenerative changes throughout spine, and right shoulder arthroplasty. CT abdomen/pelvis reported separately. Impression: 1. Focal anterior pericardial effusion/thickening better evaluated with echocardiogram. 2. Known distal esophageal malignancy. 3. Chronic findings including aortic valve replacement, arteriosclerotic disease, and chronic bony findings. 4. Remaining CT chest without contrast exam negative.
--- NOTE | 2024-01-04 22:05 | XRAY ---
Indication: Vomiting. Newly diagnosed esophageal cancer. Multiple contiguous axial images obtained through the abdomen and pelvis without contrast as ordered. Comparison: None CT chest reported separately. Noncontrasted stomach and bowel loops appear nonobstructed. Marked diffuse colonic fecal stasis. Mild distended gallbladder with tiny gallstones/gravel . No free fluid/air. Remaining liver, pancreas, spleen, adrenal glands, kidneys, ureters, and bladder are unremarkable for noncontrast exam. Mild scattered aortoiliac calcifications without AAA. Osseous structures intact with moderate degenerative changes throughout spine and previous lumbosacral junction fusion. Impression: 1. Marked diffuse colonic fecal stasis. 2. Tiny gallstones/gravel better evaluated with outpatient sonogram. 3. Chronic findings including arteriosclerotic disease and chronic bony findings. 3. No acute findings on this noncontrast exam.
[2024-01-04] MEDS ORDERED: Lactated Ringers 1,000 ML IV ONE (22:13)
[2024-01-04] MEDS: Lactated Ringers 1,000 ML IV ONE (22:16)
[2024-01-04 23:07] VITALS: BP 139/92; PULSE 88; RESP 14; O2SAT 99
== END 2024-01-04 23:07 | disposition home or self-care (01) ==
LOC: ED 19:36
DX: R11.2 Nausea with vomiting, unspecified (principal); E86.0 Dehydration; I31.39 Other pericardial effusion (noninflammatory); E11.9 Type 2 diabetes mellitus without complications; I11.0 Hypertensive heart disease with heart failure; I50.9 Heart failure, unspecified; E78.5 Hyperlipidemia, unspecified; Z79.84 Long term (current) use of oral hypoglycemic drugs; Z79.4 Long term (current) use of insulin; Z79.899 Other long term (current) drug therapy
CPT/HCPCS: 36000; 36415; 71250; 74176; 80053; 81001; 82150; 83690; 85025; 93005; 96360; 96361; 96374; 96375; 99284; J2405

== ENCOUNTER 2024-11-21 08:45 | Emergency (ER) | payer MEDICARE, OTHER ==
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
[2024-11-21 09:17] VITALS: TEMP 98.8
[2024-11-21 09:18] VITALS: O2SAT 99
[2024-11-21 09:25] LABS: BASOPHIL % 0.4 % (0.2-1.2); Basophil (Absolute #) 0.03 x10^3/uL (0.01-0.08); Eosinophil (Absolute #) 0.29 x10^3/uL (0.04-0.54); Hematocrit 46.1 % (40.1-51.0); Hemoglobin 14.2 g/dL (13.7-17.5); IMMATURE GRAN # 0.04 x10^3u/L (0.001-0.031); IMMATURE GRAN % 0.5 % (0.001-0.429); Lymphocyte (Absolute #) 1.62 x10^3/uL (1.32-3.57); Mean Corpuscular Hemoglobin 26.9 pg (25.7-32.2); Mean Corpuscular Hgb Concent. 30.8 g/dL (32.3-36.5); Monocyte (Absolute #) 0.78 x10^3/uL (0.30-0.82); NUCLEATED RBC # 0.00 x10^3u/L (0.00-0.012); NUCLEATED RBC % 0.0 % (0.00-0.2); Platelet Count 223 x10^3/uL (163-337); Red Blood Count 5.27 x10^6/uL (4.63-6.08); White Blood Count 8.3 x10^3/uL (4.23-9.07)
[2024-11-21 09:33] LABS: Glucose, Urine >=1000 mg/dL (Negative); Protein,Urine Dip Negative (Negative); RBC 0-2 /HPF (0-5); WBC 0-2 /HPF (0-5)
[2024-11-21 09:38] LABS: Calcium 10.6 mg/dL (8.4-10.2); Carbon Dioxide 28.0 mmol/L (22-30); Creatinine 1 1.07 mg/dL (0.66-1.25); EST GLOMERULAR FILTRATION RATE 71.9 ML/MIN; Glucose 102.0 mg/dL (74-106); Potassium 4.2 mmol/L (3.5-5.1); SGOT/AST 22.0 U/L (17-59); SGPT/ALT 13.0 U/L (0-50); Total Protein 7.1 g/dL (6.3-8.2)
[2024-11-21 09:43] LABS: Amphetamine,Urine POSITIVE (NEGATIVE); Barbiturate,Urine NEGATIVE (NEGATIVE); Benzodiazepine,Urine NEGATIVE (NEGATIVE); Cocaine,Urine NEGATIVE (NEGATIVE); Methadone,Urine NEGATIVE (NEGATIVE); Opiate,Urine NEGATIVE (NEGATIVE); THC,Urine NEGATIVE (NEGATIVE)
[2024-11-21 09:51] LABS: PCP,Urine NEGATIVE (NEGATIVE)
--- NOTE | 2024-11-21 10:01 | XRAY ---
Indication: Confusion. Multiple contiguous axial images obtained through the head without contrast. Comparison: June 28, 2022 Again age-appropriate global atrophy. No acute intracranial hemorrhage, abnormal extra-axial fluid collection, or mass effect. 4th ventricle is midline without hydrocephalus. Gunn-white matter differentiation preserved. Bony calvarium intact. Visualized paranasal sinuses and mastoid air cells are clear. Impression: Atrophy within normal limits. No new/acute intracranial abnormalities.
[2024-11-21 10:26] VITALS: BP 137/75; PULSE 71; RESP 21
== END 2024-11-21 10:40 | disposition home or self-care (01) ==
LOC: ED 08:45
DX: R41.0 Disorientation, unspecified (principal); E11.9 Type 2 diabetes mellitus without complications; I11.0 Hypertensive heart disease with heart failure; I50.9 Heart failure, unspecified; Z79.84 Long term (current) use of oral hypoglycemic drugs; Z79.4 Long term (current) use of insulin; Z79.899 Other long term (current) drug therapy